=== PATIENT | male | born 1965 | race Caucasian/White ===

== ENCOUNTER 2020-12-31 09:31 | Inpatient (IN) | payer OTHER, MEDICARE, SELFPAY ==
[2020-12-31 10:06] VITALS: BP 153/104; PULSE 79; RESP 16; TEMP 36.7; O2SAT 99; BMI 27.2
[2020-12-31 11:32] LABS: MANUAL DIFF FLAG NO
[2020-12-31 11:34] LABS: Basophils Absolute Auto 0.1 X10*3/uL (0.0-0.2); Basophils Percent Auto 1.6 % (0-2); Eosinophils Absolute Auto 0.1 X10*3/uL (0.0-0.4); Eosinophils Percent Auto 2.5 % (0-4); Hematocrit 39.6 % (42-52); Hemoglobin 13.7 g/dl (14.0-18.0); Imm Gran Abs Auto 0.01 X10*3/uL (0.00-0.03); Imm Gran Pct Auto 0.2 % (0.0-0.4); Lymphocytes Absolute Auto 0.8 X10*3/uL (1.2-4.9); Lymphocytes Percent Auto 18.1 % (20-40); Mean Corpuscular HGB Conc 34.6 g/dl (31.0-36.0); Mean Corpuscular Hemoglobin 30.6 pg (27.0-33.0); Mean Corpuscular Volume 88.4 fL (80-98); Monocytes Absolute Auto 0.3 X10*3/uL (0.1-1.2); Neutrophils Absolute Auto 3.1 X10*3/uL (2.0-8.3); Neutrophils Percent Auto 71.6 % (45-73); Platelet Count 206 X10*3/uL (160-400); Red Blood Count 4.48 X10*6/uL (4.60-5.80); Red Cell Distribution Width 12.7 % (11.0-16.0); White Blood Count 4.4 X10*3/uL (4.8-10.8)
[2020-12-31 11:51] LABS: Ethanol < 10 mg/dL
[2020-12-31 11:54] LABS: Alanine Aminotransferase 22 U/L (0-40); Alkaline Phosphatase 95 U/L (39-117); Anion Gap 10 (12-20); Aspartate Amino Transferase 29 U/L (5-37); Bilirubin Total 0.9 mg/dL (0.0-1.0); Blood Urea Nitrogen 14 mg/dL (9-16); Calcium 8.6 mg/dL (8.4-10.2); Carbon Dioxide 25 mmol/L (22-29); Chloride 103 mmol/L (96-108); Creatinine Clr Calc Pharmacy 102.5; Estimated Glomerular Filt Rate > 60; Glucose Random 118 mg/dL (60-115); Potassium 3.4 mmol/L (3.3-5.1); Sodium 135 mmol/L (135-145); Total Protein 6.5 g/dL (6.5-8.0)
--- NOTE | 2020-12-31 12:31 | PC.NURSE ---
Pt is now speaking loudly to nobody. He claims that he is speaking to the world . He is not combative and claims he is not SI or HI at this time.
--- NOTE | 2020-12-31 12:52 | PC.NURSE ---
BRISEYDAN called and faxed
[2020-12-31 13:46] LABS: Amphetamine Screen Urine POSITIVE (Not Detect); Barbiturates, Urine Not Detected (Not Detect); Benzodiazepines Screen Urine Not Detected (Not Detect); Cannabinoid Screen Urine POSITIVE (Not Detect); Cocaine Screen Urine Not Detected (Not Detect); Opiate Screen Urine Not Detected (Not Detect); Phencyclidine Screen Urine Not Detected (Not Detect)
[2020-12-31] MEDS: clonazePAM 1 MG TABLET PO (14:17)
--- NOTE | 2020-12-31 14:19 | PC.NURSE ---
pt getting a little agitated because he is not getting his clonazapam, states that he will be leaving. pt very hyperverbal
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
--- NOTE | 2020-12-31 15:55 | PC.NURSE ---
[facility] at the bedside for assessment
--- NOTE | 2020-12-31 18:12 | PC.NURSE ---
Pt calm and cooperative. He is in hospital attire. His belongings in the washing machine at this time. He is eating dinner and awaiting a bed in the POD. Med-rec is completed. Section-[address] Pt awaiting bed-search.
[2020-12-31 22:01] VITALS: BP 122/91; PULSE 81; RESP 16; TEMP 36.6; O2SAT 98
[2020-12-31 23:57] VITALS: BP 116/66; PULSE 82; RESP 16; TEMP 36.2; O2SAT 96
[2021-01-01] VITALS: RESP 18
[2021-01-01 02:00] VITALS: RESP 18
[2021-01-01 04:00] VITALS: BP 122/78; PULSE 64; RESP 18; TEMP 36.9; O2SAT 97
[2021-01-01] MEDS: Nicotine 21 MG PATCH.TD24 TRANSDERMA (07:05)
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
--- NOTE | 2021-01-01 07:23 | PC.NURSE ---
pt awake and remains hyper verbal and random thoughts. he has had breakfast and has asked about his medication
[2021-01-01 08:56] VITALS: BP 120/76; PULSE 73; RESP 18; TEMP 37; O2SAT 99
[2021-01-01] MEDS: Amphetamine Mixed Salts 10 MG TABLET 30 MG PO ×2 (09:12→12:08)
[2021-01-01] MEDS: Multivitamin TABLET 1 TAB PO (09:13)
[2021-01-01] MEDS: Ibuprofen 600 MG TABLET PO (09:13)
--- NOTE | 2021-01-01 09:16 | PC.NURSE ---
PT MEDICATED WITH AM MEDICATIONS. HE REMAINS HYPER VERBAL WITH RANDOM OUTBURST
--- NOTE | 2021-01-01 09:17 | PC.NURSE ---
PT REFUSING COVID SWAB AT THIS TIME.
--- NOTE | 2021-01-01 10:05 | PC.NURSE ---
PT RESTING QUIETLY
--- NOTE | 2021-01-01 13:16 | PC.NURSE ---
pt eating lunch. he continues to request to speak to n he refused covid testing x 4 attempts
--- NOTE | 2021-01-01 15:42 | PC.NURSE ---
pt to the pod to shower
--- NOTE | 2021-01-01 17:22 | PC.NURSE ---
N requested labs and nurses notes to be faxed to them. Information faxed as requested.
[2021-01-01 20:00] VITALS: RESP 20
[2021-01-01 21:23] VITALS: BP 155/98; PULSE 73; RESP 18; TEMP 36.9; O2SAT 98
--- NOTE | 2021-01-01 21:26 | PC.NURSE ---
PATIENT IMPULSIVE AND GOT UP AND RAN TO BATHROOM DESPITE BEING ASKED TO WAIT.
--- NOTE | 2021-01-01 23:31 | PC.NURSE ---
Report received. PT is sitting in bed; self dialoguing. Calm and cooperative. Inpatient bed search in progress
[2021-01-02] VITALS (7 sets, daily range): BP systolic 157–176; BP diastolic 107–112; PULSE 76–80; RESP 15–20; TEMP 36.7; O2SAT 98–100
[2021-01-02] MEDS: Amphetamine Mixed Salts 10 MG TABLET 30 MG PO ×2 (04:22→09:12)
--- NOTE | 2021-01-02 08:39 | PC.NURSE ---
pt alert and oriented x3, pt is pleasant this morning and comfortably resting in bed but refused to have his vital signs taken, will re-attempt to obtain vitals before morning med pass. pt does not appear to be delusional at this time, verbal responses appropriate. aware
[2021-01-02] MEDS: Multivitamin TABLET 1 TAB PO (09:11)
[2021-01-02] MEDS: Ibuprofen 600 MG TABLET PO (09:12)
--- NOTE | 2021-01-02 09:22 | PC.NURSE ---
pt adamantly refused to have covid test done. took his nicotine patch off himself this morning and requested another one but the order was discontinued, md notified of patients request. new nicotine patch ordered. pt stated that he wants to go home
[2021-01-02] MEDS: Nicotine 21 MG PATCH.TD24 TRANSDERMA (10:26)
--- NOTE | 2021-01-02 12:30 | PC.NURSE ---
pt refused lunch he states in observance of lent (liz thursday). fluids encouraged.
--- NOTE | 2021-01-02 14:10 | PC.NURSE ---
pt wrote a note to monse (sabrina) stating that he is refusing to speak to anyone at this time.
--- NOTE | 2021-01-02 16:14 | PC.NURSE ---
patient refused to have his vitals taken ,rn stepan aware.
[2021-01-03] VITALS (10 sets, daily range): BP systolic 143–162; BP diastolic 91–114; PULSE 76–126; RESP 16–20; TEMP 36.2–37.1; O2SAT 95–99
[2021-01-03 02:39] LABS: COVID-19 Test Negative (Negative)
[2021-01-03] MEDS: Amphetamine Mixed Salts 10 MG TABLET 30 MG PO ×2 (05:27→08:32)
[2021-01-03] MEDS: Nicotine 21 MG PATCH.TD24 TRANSDERMA (05:35)
--- NOTE | 2021-01-03 05:44 | ED_ITS ---
HPI - General Adult General Chief complaint: Psychiatric Symptoms Stated complaint: PTSD Time Seen by Provider: 12/31/20 10:24 Source: patient Mode of arrival: ambulatory Limitations: no limitations History of Present Illness HPI narrative: 55-year-old female who presents emergency department for evaluation of upper back pain x2 days. The patient does not report any injury. She states that the pain came on suddenly and got progressively worse. She points to her mid thoracic back when asked to localize the pain. The pain is a constant, stabbing sensation which is 8/10 at its worst. The pain is worse with movement and with breathing. She denies fever, chills, cough or shortness of breath. She denies dyspnea on exertion. She states that she has had some slight rhinorrhea. She has been taking Tylenol for the pain without relief of her discomfort. She denies numbness, weakness, loss of bowel or bladder control. Related Data Home Medications Medication Instructions Recorded Confirmed dextroamphetamine-amphetamine 1 tab PO BID@0500,0900 12/31/20 01/01/21 ibuprofen 600 mg PO Q6H PRN 12/31/20 01/01/21 multivitamin 1 tab PO DAILY 12/31/20 01/01/21 Allergies Allergy/AdvReac Type Severity Reaction Status Date / Time Pork/Porcine Containing Allergy Mild UNKNOWN Unverified 08/02/20 19:51 Products [PORK/PORCINE CONTAINING PRODUCTS] Review of Systems Review of Systems: Yes all other systems are reviewed and are negative Neurologic: Reports Abnormal speech present PMFSH Past Medical History Source: unable to obtain Medical History (Updated 12/31/20 @ 17:50 by Edouard Andrew NP) ADHD Arthritis Narcolepsy PTSD (post-traumatic stress disorder) Vertigo Social History Social History Alcohol intake: never Smoking Status: Current every day smoker Use of substances other than those prescribed or required for medical reasons: No Advance Directives: No Advance Directives Information Provided: No Physical Exam Vital Signs: Vital Signs: Last Vital Signs Temp 97.8 F 01/03/21 05:34 Pulse 126 H 01/03/21 05:34 Resp 17 01/03/21 05:34 BP 143/92 H 01/03/21 05:34 Pulse Ox 97 02/18/21 05:34 Body Mass Index 27.2 Const: General: cooperative and healthy appearing Orientation/consciousness: oriented to person and oriented to place Limitations: no limitations HENMT: Head: Yes normal to inspection, Yes normocephalic and Yes atraumatic Ears: external ears normal General nose exam: Normal external nose present Face and sinus: Yes normal facial exam Mouth: Normal oral and palatal mucosa present Throat: Yes posterior oropharynx normal Eyes: Periorbital: periorbital findings normal Eyelids: Yes eyelids normal Conjunctivae: conjunctivae normal Sclerae: sclerae normal Corneas: corneas normal Pupils: Equal, round and reactive pupils present Direct Ophthalmoscopy: normal light reflex Neck: Neck: Yes full ROM, Yes no lymphadenopathy, Yes no meningeal signs, Yes trachea midline and Yes supple Chest: Chest palpation & inspection: normal inspection of the chest and normal palpation of entire chest wall Resp: Effort & Inspection: normal respiratory effort and able to speak in complete sentences Auscultation: clear to auscultation bilaterally Cardio: Rate: regular rate Rhythm: regular rhythm Heart sounds: S1 normal heart sound present, S2 normal heart sound present and no murmurs GI: Inspection: Yes normal to inspection Palpation (GI): Soft to palpation, nontender, no guarding, not rigid and No hepatosplenomegaly present : General: Yes no CVA tenderness Back/Spine/Pelvis: Back: no CVA tenderness Cervical Spine: normal cervical lordosis Thoracic/Lumbar Spine: thoracic and lumbar spine normal to in spection, straight leg raise negative bilaterally and paraspinal muscle tenderness bilaterally in the mid thoracic Skin: Lesions: no lesions Rashes: no rashes Wounds: no wounds Neuro: General: oriented to person, oriented to place and no meningeal signs Cranial nerves: Yes CN's II-XII intact bilaterally and Yes Equal, round and reactive pupils present Cognition (Neuro): normal cognition Speech: Abnormal speech present Motor exam (neuro): 5/5 motor strength present throughout Extrem: General: Yes normal to inspection and Yes full ROM Psych: Appearance: well kempt Mental Status: mental status grossly normal Speech and movement: Normal speech and movement present Affect: normal affect Attitude: cooperative Thought process: Normal thought process present Thought content: Normal thought content present Course Course Course Narrative: 55-year-old female who presents emergency department for evaluation of mid thoracic back pain x2 days with no injury. The patient has had no concerning systemic symptoms. She did have tenderness with palpation of the paraspinal muscles in the midthoracic area with spasm of these muscles. Patient's presentation is consistent with musculoskeletal injury. She was treated with prednisone 60 mg orally and Flexeril 10 mg orally. She is to take prednisone 60 mg once a day for 5 days, Flexeril 10 mg 3 times a day as needed for pain and spasm and extra-strength Tylenol 2 tablets every 4-6 hours as needed for pain. She was given verbal and printed instructions and discharged home. Medical Decision Making Lab Data Result diagrams: 12/31/20 11:22 12/31/20 11:22 Labs: Lab Results 12/31/20 12/31/20 12/31/20 Range/Units 11:22 11: 11:22 WBC 4.4 L (4.8-10.8) X10*3/uL RBC 4.48 L (4.60-5.80) X10*6/uL Hgb 13.7 L (14.0-18.0) g/dl Hct 39.6 L (42-52) % MCV 88.4 (80-98) fL MCH 30.6 (27.0-33.0) pg MCHC 34.6 (31.0-36.0) g/dl RDW 12.7 (11.0-16.0) % Plt Count 206 (160-400) X10*3/uL MPV 8.0 L (9.4-12.4) fL Immature Gran % (Auto) 0.2 (0.0-0.4) % Neut % (Auto) 71.6 (45-73) % Lymph % (Auto) 18.1 L (20-40) % [place] % (Auto) 6.0 (2-11) % Eos % (Auto) 2.5 (0-4) % Baso % (Auto) 1.6 (0-2) % Lymph # (Auto) 0.8 L (1.2-4.9) X10*3/uL [place] # (Auto) 0.3 (0.1-1.2) X10*3/uL Eos # (Auto) 0.1 (0.0-0.4) X10*3/uL Baso # (Auto) 0.1 (0.0-0.2) X10*3/uL Abs Immat Gran (auto) 0.01 (0.00-0.03) X10*3/uL Absolute Neuts (auto) 3.1 (2.0-8.3) X10*3/uL Absolute Nucleated RBC 0.000 (0.0-0.012) X10*3/uL Nucleated RBC % (auto) 0.0 (0.0-0.2) /100WBC Sodium 135 (135-145) mmol/L Potassium 3.4 (3.3-5.1) mmol/L Chloride 103 (96-108) mmol/L Carbon Dioxide 25 (22-29) mmol/L Anion Gap 10 L (12-20) BUN 14 (9-16) mg/dL Creatinine 0.85 (0.5-1.4) mg/dL Estim Creat Clear Calc 102.5 Estimated GFR > 60 Random Glucose 118 H (60-115) mg/dL Calcium 8.6 (8.4-10.2) mg/dL Total Bilirubin 0.9 (0.0-1.0) mg/dL AST 29 (5-37) U/L ALT 22 (0-40) U/L Alkaline Phosphatase 95 (39-117) U/L Total Protein 6.5 (6.5-8.0) g/dL Albumin 4.0 (3.5-5.0) g/dL Urine Opiates Screen (Not Detect) Ur Barbiturates Screen (Not Detect) Ur Phencyclidine Scrn (Not Detect) Ur Amphetamines Screen (Not Detect) U Benzodiazepines Scrn (Not Detect) Urine Cocaine Screen (Not Detect) U Marijuana (THC) Screen (Not Detect) Ethyl Alcohol < 10 mg/dL COVID-19 ([facility]RE[facility]) (Negative) COVID-19 Clin Com 12/31/20 01/03/21 Range/Units 13:07 02:11 WBC (4.8-10.8) X10*3/uL RBC (4.60-5.80) X10*6/uL Hgb (14.0-18.0) g/dl Hct (42-52) % MCV (80-98) fL MCH (27.0-33.0) pg MCHC (31.0-36.0) g/dl RDW (11.0-16.0) % Plt Count (160-400) X10*3/uL MPV (9.4-12.4) fL Immature Gran % (Auto) (0.0-0.4) % Neut % (Auto) (45-73) % Lymph % (Auto) (20-40) % [place] % (Auto) (2-11) % Eos % (Auto) (0-4) % Baso % (Auto) (0-2) % Lymph # (Auto) (1.2-4.9) X10*3/uL [place] # (Auto) (0.1-1.2) X10*3/uL Eos # (Auto) (0.0-0.4) X10*3/uL Baso # (Auto) (0.0-0.2) X10*3/uL Abs Immat Gran (auto) (0.00-0.03) X10*3/uL Absolute Neuts (auto) (2.0-8.3) X10*3/uL Absolute Nucleated RBC (0.0-0.012) X10*3/uL Nucleated RBC % (auto) (0.0-0.2) /100WBC Sodium (135-145) mmol/L Potassium (3.3-5.1) mmol/L Chloride (96-108) mmol/L Carbon Dioxide (22-29) mmol/L Anion Gap (12-20) BUN (9-16) mg/dL Creatinine (0.5-1.4) mg/dL Estim Creat Clear Calc Estimated GFR Random Glucose (60-115) mg/dL Calcium (8.4-10.2) mg/dL Total Bilirubin (0.0-1.0) mg/dL AST (5-37) U/L ALT (0-40) U/L Alkaline Phosphatase (39-117) U/L Total Protein (6.5-8.0) g/dL Albumin (3.5-5.0) g/dL Urine Opiates Screen Not Detected (Not Detect) Ur Barbiturates Screen Not Detected (Not Detect) Ur Phencyclidine Scrn Not Detected (Not Detect) Ur Amphetamines Screen POSITIVE H (Not Detect) U Benzodiazepines Scrn Not Detected (Not Detect) Urine Cocaine Screen Not Detected (Not Detect) U Marijuana (THC) Screen POSITIVE H (Not Detect) Ethyl Alcohol mg/dL COVID-19 ([facility]ISREEN) Negative (Negative) COVID-19 Clin Com See Note Discharge Plan Discharge Clinical Impression: Acute post-traumatic stress disorder Prescriptions: No Action multivitamin Tablet 1 tab PO DAILY RF: 0 dextroamphetamine-amphetamine 30 mg tablet 1 tab PO BID@0500,0900 RF: 0 ibuprofen 600 mg Tablet 600 mg PO Q6H PRN (Reason: Inflammation) RF: 0
--- NOTE | 2021-01-03 07:12 | PC.NURSE ---
Report received from KARELY Cancino. Pt awake, affect even, no concerns reported, except that he does not want to be admitted to inpatient unit.
--- NOTE | 2021-01-03 08:26 | PC.NURSE ---
Reviewed current vital signs w/ A Dorota. Pt reports he is hypertensive due to chronic pain.
[2021-01-03] MEDS: Ibuprofen 600 MG TABLET PO ×2 (08:30→17:45)
[2021-01-03] MEDS: Multivitamin TABLET 1 TAB PO (08:30)
--- NOTE | 2021-01-03 10:28 | PC.NURSE ---
Pt reports good effect from Motrin given.
--- NOTE | 2021-01-03 10:35 | PC.NURSE ---
Pt's current vital signs and elevated BP reported to Cristo mathews
[2021-01-03] MEDS: amLODIPine Besylate 5 MG TABLET PO (11:03)
--- NOTE | 2021-01-03 12:11 | PC.NURSE ---
Pt awake, watching television in room, no concerns reported.
--- NOTE | 2021-01-03 14:08 | PC.NURSE ---
Pt awake, affect even- pt pleasant, interacting w/ staff appropriately.
--- NOTE | 2021-01-03 16:56 | PC.NURSE ---
Pt resting at this time. Informed that he has been accepted to [facility]- very pleased with news.
--- NOTE | 2021-01-03 17:19 | PC.NURSE ---
Report given to KARELY Vuong
--- NOTE | 2021-01-03 17:59 | PC.NURSE ---
Pt continues to be pleasant, requesting ibuprofen for chronic back pain.
--- NOTE | 2021-01-03 18:19 | PC.NURSE ---
[facility] in to transfer pt to [facility]. Pt cooperative w/ transfer, affect even, no concerns reported.
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
[2021-01-03] MEDS: clonazePAM 1 MG TABLET PO (22:41)
[2021-01-03] MEDS: Milk of Magnesia 30 ML ORAL.SUSP PO (22:42)
[2021-01-04] MEDS: Amphetamine Mixed Salts 10 MG TABLET 30 MG PO ×2 (04:35→09:18)
[2021-01-04 04:40] VITALS: BP 122/81; PULSE 83; RESP 16; TEMP 36.2; O2SAT 97
[2021-01-04 09:11] VITALS: BP 122/81
[2021-01-04] MEDS: amLODIPine Besylate 5 MG TABLET PO (09:11)
[2021-01-04] MEDS: Multivitamin TABLET 1 TAB PO (09:11)
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
[2021-01-04] MEDS: Nicotine 21 MG PATCH.TD24 TRANSDERMA (16:55)
[2021-01-04] MEDS: clonazePAM 1 MG TABLET PO ×2 (16:56→21:02)
[2021-01-04 18:00] VITALS: BP 145/99; PULSE 90; TEMP 36.8
[2021-01-04] MEDS: Milk of Magnesia 30 ML ORAL.SUSP PO (22:35)
[2021-01-05] MEDS: Amphetamine Mixed Salts 10 MG TABLET 30 MG PO ×2 (05:59→12:18)
[2021-01-05 06:30] VITALS: BP 158/94; PULSE 77; RESP 18; TEMP 36.6; O2SAT 100
[2021-01-05] MEDS: Ibuprofen 600 MG TABLET PO ×2 (08:36→16:14)
[2021-01-05] MEDS: Nicotine 21 MG PATCH.TD24 TRANSDERMA (09:33)
[2021-01-05] MEDS: clonazePAM 1 MG TABLET PO ×2 (09:35→16:42)
[2021-01-05] MEDS: Multivitamin TABLET 1 TAB PO (09:37)
[2021-01-05] MEDS: Milk of Magnesia 30 ML ORAL.SUSP PO (12:23)
--- NOTE | 2021-01-05 15:52 | HO.PSYCHPN ---
Subjective Subjective Date of Service: 01/05/21 Reason For Visit: Paranoid delusions Subjective Notes: Conditional Voluntary Interim History: Patient known to me from a previous admission. He was calm, well groomed and cooperative. He reminded me of the history that he had been evaluated extensively at [facility] for treatment with Adderall. During the last admission he was re-started on it aling wit klonopin (which he insists he will only use in a hospital). He re-compensated quicky and was DC. He accepted the concern about adderall but again insisted that he has been Rx Adderall for many years. We agreed to observe him on the adderall over the weekend. If there is a return of psychosis or paranoia then team will address the issue further. He is considering signing a 3 day notice. Medication Compliance: Yes Side effects from medications: No Attending Groups: Yes Review of Systems Acute medical concerns: No Medical Review of Systems: unchanged Mental Status Exam Mental Status Exam Patient Appearance: Well Grooomed Patient Orientation: Person, Place, Time and Situation Level of Consciousness: Awake Patient Behavior: Appropriate Mood Description: Calm Affect Description: Calm Patient Cognition Impaired: No Ability to Follow Directions: Excellent Speech Pattern: Clear Memory Description: Intact Hallucinations: None Delusions: Not Present Thought Process: Intact Thought Content: positive for Intact, negative for Suicidal Ideation and negative for Homicidal Ideation Judgement: Fair Diagnostics Vital Signs (24Hr): Vital Signs - 24 hr 01/04/21 18:00 01/05/21 06:30 Temperature 98.3 F 97.9 F Pulse Rate 90 77 Respiratory Rate 18 Blood Pressure 145/99 H 158/94 H Pulse Oximetry 100 Body Mass Index 27.2 Labs Results: 12/31/20 11:22 12/31/20 11:22 Medications Medications Current Medications Generic Name Dose Route Start Last Admin Trade Name Freq PRN Reason Stop Dose Admin Acetaminophen 650 mg 01/03/21 17:30 Acetaminophen 325 Mg Tablet PO Q6H PRN Headache/Pain Mild Scale (1-3) Al Hydroxide/Mg Hydroxide 30 ml 01/03/21 17:30 Magnesium Hydrox/Alum Hydrox 30 Ml Oral.Susp PO Q6H PRN Heartburn/Nausea Amlodipine Besylate 5 mg 01/03/21 11:00 01/05/21 09:36 Amlodipine Besylate 5 Mg Tablet PO Not Given DAILY [facility] Protocol Amphetamine/Dextroamphetamine 30 mg 01/06/21 05:00 Amphetamine Mixed Salts 10 Mg Tablet PO DAILY@0500,0900 [facility] Benztropine Mesylate 1 mg 01/04/21 16:59 Benztropine Mesylate 1 Mg Tablet PO BID PRN eps Clonazepam 1 mg 01/04/21 16:55 01/05/21 09:35 Clonazepam 1 Mg Tablet PO 1 mg BID [facility]KE Administration Ibuprofen 600 mg 01/01/21 09:02 01/05/21 08:36 Ibuprofen 600 Mg Tablet PO 600 mg Q6H PRN Administration Inflammation Magnesium Hydroxide 30 ml 01/03/21 17:30 01/05/21 12:23 Milk Of Magnesia 30 Ml Oral.Susp PO 30 ml DAILY PRN Administration Constipation Multivitamins/Vitamin C 1 tab 01/01/21 09:15 01/05/21 09:37 Multivitamin Tablet PO 1 tab DAILY [facility] Administration Nicotine 21 mg 01/04/21 16:50 01/05/21 09:33 Nicotine 21 Mg Patch.Td24 TRANSDERMA 21 mg DAILY [facility] Administration Nicotine Polacrilex 2 mg 01/04/21 16:50 Nicotine Polacrilex 2 Mg Gum BUCCAL Q2H PRN Nicotine Cravings Perphenazine 8 mg 01/04/21 21:00 01/05/21 09:37 Perphenazine 8 Mg Tablet PO Not Given BID [facility] Perphenazine 2 mg 01/04/21 16:56 Perphenazine 2 Mg Tablet PO Q6H PRN agitation Trazodone HCl 50 mg 01/04/21 16:58 Trazodone Hcl 50 Mg Tablet PO BEDTIME PRN sleep Allergies Allergies Allergy/AdvReac Type Severity Reaction Status Date / Time Pork/Porcine Containing Allergy Mild UNKNOWN Verified 01/03/21 05:51 Products [PORK/PORCINE CONTAINING PRODUCTS] Assessment & Plan Assessment & Plan (1) Acute post-traumatic stress disorder: Status: Acute Code(s): F43.11 - Post-traumatic stress disorder, acute Assessment and Plan: Resume adderall Observe Collect more collateral information from [facility] Greater than 50% of the session was spent on counseling and/or coordination of care Patient educated on: diagnosis and medication risk/benefits Informed Consent: understands Reason for contiued inpatient stay Substantial Risk for: rapid decompensation
[2021-01-05 18:00] VITALS: BP 170/114; PULSE 84; TEMP 36.9
[2021-01-06 01:45] VITALS: BP 142/86; PULSE 83; RESP 18; O2SAT 99
[2021-01-06 05:15] VITALS: BP 124/77; PULSE 88; RESP 18; TEMP 36.6; O2SAT 99
[2021-01-06] MEDS: Amphetamine Mixed Salts 10 MG TABLET 30 MG PO ×2 (05:18→08:23)
[2021-01-06] MEDS: Ibuprofen 600 MG TABLET PO ×3 (05:18→20:38)
[2021-01-06] MEDS: Acetaminophen 325 MG TABLET 650 MG PO ×2 (06:32→15:55)
[2021-01-06 08:22] VITALS: BP 124/77; PULSE 88
[2021-01-06] MEDS: clonazePAM 1 MG TABLET PO ×3 (08:22→20:39)
[2021-01-06] MEDS: amLODIPine Besylate 5 MG TABLET PO (08:22)
[2021-01-06] MEDS: Perphenazine 8 MG TABLET PO (08:22)
[2021-01-06] MEDS: Multivitamin TABLET 1 TAB PO (08:22)
[2021-01-06] MEDS: Nicotine 21 MG PATCH.TD24 TRANSDERMA (09:18)
--- NOTE | 2021-01-06 14:40 | PC.NURSE ---
pt states he is refusing ekg at the time thursday
--- NOTE | 2021-01-06 15:39 | HO.PSYCHPN ---
Subjective Subjective Date of Service: 01/06/21 Reason For Visit: Paranoid delusions Subjective Notes: Conditional Voluntary Interim History: Patient known to me from a previous admission. He was calm, well groomed and cooperative. Since being on Adderall there has been no psychosis and no behavioral dyscontrol. Medication Compliance: Yes Side effects from medications: No Attending Groups: No Review of Systems Acute medical concerns: No Medical Review of Systems: unchanged Review of Systems Review of Systems Constitutional: No Weight loss, No Fever, No Chills, No Night Sweats, No Fatigue, No Malaise ENT/Mouth: No Hearing loss, No Ear Pain, No Nasal Congestion, No Sinus Pain, No Hoarseness, No sore throat, No Rhinorrhea, No Swallowing Difficulty Eyes: No Eye Pain, No Swelling, No Redness, No Foreign Body, No Discharge, No Vision Changes Cardiovascular: No Chest Pain, No SOB, No Dyspnea on Exertion, No Orthopnea, No Edema, No Palpitations Respiratory: No Cough, No Sputum, No Wheezing, No Dyspnea Gastrointestinal: No Nausea, No Vomiting, No Diarrhea, No Constipation, No abdominal Pain, No Hematochezia, No Melena Genitourinary: No Dysuria, No Urinary Frequency, No Hematuria, No Urgency, No Flank Pain, No Urinary Flow Changes, No Hesitancy Musculoskeletal: No joint pain, No Myalgias, No Joint Swelling Skin: No Skin Lesions, No rash Neuro: No Weakness, No Numbness, No Paresthesias, No Loss of Consciousness, No Dizziness, No Headache Psych: As noted per HPI, No SI/HI/AH/VH Heme/Lymph: No Bruising, No Bleeding,No Lymphadenopathy Endocrine: No Polyuria, No Polydipsia, No Temperature Intolerance Yes all other systems are reviewed and are negative Reports Abnormal speech present Mental Status Exam Mental Status Exam Patient Appearance: Well Grooomed Patient Orientation: Person, Place, Time and Situation Level of Consciousness: Awake Patient Behavior: Appropriate Mood Description: Calm Affect Description: Calm Patient Cognition Impaired: No Ability to Follow Directions: Excellent Speech Pattern: Clear Memory Description: Intact Thought Content: negative for Suicidal Ideation and negative for Homicidal Ideation Diagnostics Vital Signs (24Hr): Vital Signs - 24 hr 01/05/21 18:00 01/06/21 01:45 01/06/21 05:15 Temperature 98.4 F 97.9 F Pulse Rate 84 83 88 Respiratory Rate 18 18 Blood Pressure 170/114 H 142/86 H 124/77 Pulse Oximetry 99 99 01/06/21 08:22 Temperature Pulse Rate 88 Respiratory Rate Blood Pressure 124/77 Pulse Oximetry Body Mass Index 27.2 Labs Results: 12/31/20 11:22 12/31/20 11:22 Medications Medications Current Medications Generic Name Dose Route Start Last Admin Trade Name Freq PRN Reason Stop Dose Admin Acetaminophen 650 mg 01/03/21 17:30 01/06/21 06:32 Acetaminophen 325 Mg Tablet PO 650 mg Q6H PRN Administration Headache/Pain Mild Scale (1-3) Al Hydroxide/Mg Hydroxide 30 ml 01/03/21 17:30 Magnesium Hydrox/Alum Hydrox 30 Ml Oral.Susp PO Q6H PRN Heartburn/Nausea Amlodipine Besylate 5 mg 01/03/21 11:00 01/06/21 08:22 Amlodipine Besylate 5 Mg Tablet PO 5 mg DAILY [facility] Administration Protocol Amphetamine/Dextroamphetamine 30 mg 01/06/21 05:00 01/06/21 08:23 Amphetamine Mixed Salts 10 Mg Tablet PO 30 mg DAILY@0500,0900 [facility] Administration Benztropine Mesylate 1 mg 01/04/21 16:59 Benztropine Mesylate 1 Mg Tablet PO BID PRN eps Clonazepam 1 mg 01/06/21 10:35 Clonazepam 1 Mg Tablet PO BID PRN Anxiety Ibuprofen 600 mg 01/01/21 09:02 01/06/21 12:52 Ibuprofen 600 Mg Tablet PO 600 mg Q6H PRN Administration Inflammation Magnesium Hydroxide 30 ml 01/03/21 17:30 01/05/21 12:23 Milk Of Magnesia 30 Ml Oral.Susp PO 30 ml DAILY PRN Administration Constipation Multivitamins/Vitamin C 1 tab 01/01/21 09:15 01/06/21 08:22 Multivitamin Tablet PO 1 tab DAILY [facility] Administration Nicotine 21 mg 01/04/21 16:50 01/06/21 09:18 Nicotine 21 Mg Patch.Td24 TRANSDERMA 21 mg DAILY [facility] Administration Nicotine Polacrilex 2 mg 01/04/21 16:50 Nicotine Polacrilex 2 Mg Gum BUCCAL Q2H PRN Nicotine Cravings Trazodone HCl 50 mg 01/04/21 16:58 Trazodone Hcl 50 Mg Tablet PO BEDTIME PRN sleep Allergies Allergies Allergy/AdvReac Type Severity Reaction Status Date / Time Pork/Porcine Containing Allergy Mild UNKNOWN Verified 01/03/21 05:51 Products [PORK/PORCINE CONTAINING PRODUCTS] Assessment & Plan Assessment & Plan (1) Acute post-traumatic stress disorder: Status: Acute Code(s): F43.11 - Post-traumatic stress disorder, acute Assessment and Plan: Resume adderall Observe [facility] Greater than 50% of the session was spent on counseling and/or coordination of care Patient educated on: diagnosis and medication risk/benefits Informed Consent: understands Reason for contiued inpatient stay Substantial Risk for: rapid decompensation
[2021-01-06] MEDS: Milk of Magnesia 30 ML ORAL.SUSP PO (15:55)
[2021-01-06 17:36] VITALS: BP 165/106; PULSE 80; TEMP 36.2
--- NOTE | 2021-01-06 19:00 | PC.NURSE ---
Addendum entered by Winsome Feliciano RN 01/06/21 19:12: Correction:Clonidine is 0.05 po q 4 hours prn HTN NOT 0.5 mg. Original Note: Patient's blood pressure was 165/106 with a pulse of 80. Dr. José Hameed notified. Patient also complained of constipation x [address] Tyson aware. Telephone orders obtained for Conidine 0.5 po Q4 hours prn HTN. Hold for systolic <90. Also Senokot 17.2 mg po bid scheduled.
[2021-01-06 19:15] VITALS: BP 143/97; PULSE 90
[2021-01-06] MEDS: cloNIDine HCL 0.1 MG TABLET 0.05 MG PO (19:15)
[2021-01-07 05:35] VITALS: BP 126/95; PULSE 77; RESP 18; TEMP 36.6; O2SAT 99
[2021-01-07] MEDS: Amphetamine Mixed Salts 10 MG TABLET 30 MG PO ×2 (05:42→08:28)
[2021-01-07] MEDS: Nicotine 21 MG PATCH.TD24 TRANSDERMA (08:25)
[2021-01-07 08:26] VITALS: BP 126/95; PULSE 77
[2021-01-07] MEDS: amLODIPine Besylate 5 MG TABLET PO (08:26)
[2021-01-07] MEDS: Sennosides 8.6 MG TABLET 17.2 MG PO ×2 (08:27→20:22)
[2021-01-07] MEDS: Multivitamin TABLET 1 TAB PO (08:29)
[2021-01-07] MEDS: Ibuprofen 600 MG TABLET PO ×2 (12:01→20:22)
[2021-01-07] MEDS: clonazePAM 1 MG TABLET PO ×2 (12:26→16:43)
[2021-01-07 15:10] VITALS: BP 128/78; PULSE 88
[2021-01-07] MEDS: cloNIDine HCL 0.1 MG TABLET 0.05 MG PO ×2 (15:10→20:18)
--- NOTE | 2021-01-07 17:06 | P.PNPSI_ITS ---
Subjective Subjective Date of Service: 01/07/21 Reason For Visit: Paranoid delusions Interim History: Pt appears calmer today. 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 Pt is very polite. He reports that he has been told that he has schizophrenia but he does no think that this is the case. Pt continued to decline antipsychotic medications. His has been calmer, although pacing keys, praying while pacing and talking at times with someone who is not there. He has not been aggressive towards self or others. No hx of violence towards self or others, despite his psychosis. Calls made to his adult children but unable to leave as it is full. [facility] with hx of persecutory delusions Review of Systems Review of Systems Constitutional: No Weight loss, No Fever, No Chills, No Night Sweats, No Fatigu e, No Malaise ENT/Mouth: No Hearing loss, No Ear Pain, No Nasal Congestion, No Sinus Pain, No Hoarseness, No sore throat, No Rhinorrhea, No Swallowing Difficulty Eyes: No Eye Pain, No Swelling, No Redness, No Foreign Body, No Discharge, No Vision Changes Cardiovascular: No Chest Pain, No SOB, No Dyspnea on Exertion, No Orthopnea, No Edema, No Palpitations Respiratory: No Cough, No Sputum, No Wheezing, No Dyspnea Gastrointestinal: No Nausea, No Vomiting, No Diarrhea, No Constipation, No abdominal Pain, No Hematochezia, No Melena Genitourinary: No Dysuria, No Urinary Frequency, No Hematuria, No Urgency, No Flank Pain, No Urinary Flow Changes, No Hesitancy Musculoskeletal: No joint pain, No Myalgias, No Joint Swelling Skin: No Skin Lesions, No rash Neuro: No Weakness, No Numbness, No Paresthesias, No Loss of Consciousness, No Dizziness, No Headache Psych: As noted per HPI, No SI/HI/AH/VH Heme/Lymph: No Bruising, No Bleeding,No Lymphadenopathy Endocrine: No Polyuria, No Polydipsia, No Temperature Intolerance Yes all other systems are reviewed and are negative Reports Abnormal speech present Mental Status Exam Mental Status Exam Narrative: Appearance: casually groomed, fair hygiene, restless Behavior: increasingly guarded, suspicious and agitated Psychomotor: significant agitation noted Speech: unclear at times due to pressured speech, hyper verbal, monotone, loud at times, spontaneous. TP:derailment noted, circumstantial TC: persecutory delusions, ideas of reference AH/VH: pt appears internally preoccupied Mood: tired Affect: paranoid, guarded, agitated Insight/judgment: impaired x 2. Memory/cog: alert, oriented to place, not to situation Patient Appearance: Well Grooomed Patient Orientation: Person, Place, Time and Situation Level of Consciousness: Awake Patient Behavior: Appropriate Mood Description: Calm Affect Description: Calm Patient Cognition Impaired: No Ability to Follow Directions: Excellent Speech Pattern: Clear Memory Description: Intact Diagnostics Vital Signs (24Hr): Vital Signs - 24 hr 01/06/21 17:36 01/06/21 19:15 01/07/21 05:35 Temperature 97.2 F 97.9 F Pulse Rate 80 90 77 Respiratory Rate 18 Blood Pressure 165/106 H 143/97 H 126/95 H Pulse Oximetry 99 01/07/21 08:26 01/07/21 15:10 Temperature Pulse Rate 77 88 Respiratory Rate Blood Pressure 126/95 H 128/78 Pulse Oximetry Body Mass Index 27.2 Labs Results: 12/31/20 11:22 12/31/20 11:22 Medications Medications Current Medications Generic Name Dose Route Start Last Admin Trade Name Rahatq PRN Reason Stop Dose Admin Acetaminophen 650 mg 01/03/21 17:30 01/06/21 15:55 Acetaminophen 325 Mg Tablet PO 650 mg Q6H PRN Administration Headache/Pain Mild Scale (1-3) Al Hydroxide/Mg Hydroxide 30 ml 01/03/21 17:30 Magnesium Hydrox/Alum Hydrox 30 Ml Oral.Susp PO Q6H PRN Heartburn/Nausea Amlodipine Besylate 5 mg 01/03/21 11:00 01/07/21 08:26 Amlodipine Besylate 5 Mg Tablet PO 5 mg DAILY MIKE Administration Protocol Amphetamine/Dextroamphetamine 30 mg 01/06/21 05:00 01/07/21 08:28 Amphetamine Mixed Salts 10 Mg Tablet PO 30 mg DAILY@0500,0900 MIKE Administration Benztropine Mesylate 1 mg 01/04/21 16:59 Benztropine Mesylate 1 Mg Tablet PO BID PRN eps Clonazepam 1 mg 01/06/21 10:35 01/07/21 16:43 Clonazepam 1 Mg Tablet PO 1 mg BID PRN Administration Anxiety Clonidine HCl 0.05 mg 01/06/21 18:48 01/07/21 15:10 Clonidine Hcl 0.1 Mg Tablet PO 0.05 mg Q4H PRN Administration HTN Protocol Ibuprofen 600 mg 01/01/21 09:02 01/07/21 12:01 Ibuprofen 600 Mg Tablet PO 600 mg Q6H PRN Administration Inflammation Magnesium Hydroxide 30 ml 01/03/21 17:30 01/06/21 15:55 Milk Of Magnesia 30 Ml Oral.Susp PO 30 ml DAILY PRN Administration Constipation Multivitamins/Vitamin C 1 tab 01/01/21 09:15 01/07/21 08:29 Multivitamin Tablet PO 1 tab DAILY MIKE Administration Nicotine 21 mg 01/04/21 16:50 01/07/21 08:25 Nicotine 21 Mg Patch.Td24 TRANSDERMA 21 mg DAILY MIKE Administration Nicotine Polacrilex 2 mg 01/04/21 16:50 Nicotine Polacrilex 2 Mg Gum BUCCAL Q2H PRN Nicotine Cravings Senna 17.2 mg 01/06/21 21:00 01/07/21 08:27 Sennosides 8.6 Mg Tablet PO 17.2 mg BID MIKE Administration Trazodone HCl 50 mg 01/04/21 16:58 Trazodone Hcl 50 Mg Tablet PO BEDTIME PRN sleep Allergies Allergies Allergy/AdvReac Type Severity Reaction Status Date / Time Pork/Porcine Containing Allergy Mild UNKNOWN Verified 01/03/21 05:51 Products [PORK/PORCINE CONTAINING PRODUCTS] Assessment & Plan Assessment & Plan (1) Paranoid schizophrenia: Status: Acute Code(s): F20.0 - Paranoid schizophrenia Assessment and Plan: Mr. Quigley continues to present with persecutory delusions, AH, and declining antipsychotics but in good behavioral control. No indication of i mminent risks to self or others despite long history of delusional thinking/AH. Greater than 50% of the session was spent on counseling and/or coordination of care Reason for contiued inpatient stay Substantial Risk for: inability to function
[2021-01-07 17:34] VITALS: BP 159/92; PULSE 93; TEMP 37
[2021-01-07] MEDS: Milk of Magnesia 30 ML ORAL.SUSP PO (19:27)
[2021-01-07 20:18] VITALS: BP 144/94; PULSE 91
[2021-01-07] MEDS: Acetaminophen 325 MG TABLET 650 MG PO (22:42)
[2021-01-08] MEDS: clonazePAM 1 MG TABLET PO ×2 (00:16→12:15)
[2021-01-08] MEDS: Amphetamine Mixed Salts 10 MG TABLET 30 MG PO ×2 (05:13→09:05)
[2021-01-08 05:15] VITALS: BP 154/100; PULSE 79; RESP 20; TEMP 36.6; O2SAT 100
[2021-01-08] MEDS: Sennosides 8.6 MG TABLET 17.2 MG PO ×2 (08:59→20:11)
[2021-01-08 09:00] VITALS: BP 154/100; PULSE 79
[2021-01-08] MEDS: Multivitamin TABLET 1 TAB PO (09:00)
[2021-01-08] MEDS: amLODIPine Besylate 5 MG TABLET PO (09:00)
[2021-01-08] MEDS: Nicotine 21 MG PATCH.TD24 TRANSDERMA (09:01)
[2021-01-08] MEDS: Acetaminophen 325 MG TABLET 650 MG PO ×2 (12:14→22:05)
[2021-01-08] MEDS: Ibuprofen 600 MG TABLET PO ×2 (12:16→22:02)
[2021-01-08 16:13] VITALS: BP 174/101; PULSE 88
[2021-01-08] MEDS: cloNIDine HCL 0.1 MG TABLET 0.05 MG PO ×2 (16:13→22:05)
[2021-01-08 17:00] VITALS: BP 122/88; PULSE 84
--- NOTE | 2021-01-08 17:18 | P.PNPSI_ITS ---
Subjective Subjective Date of Service: 01/08/21 Reason For Visit: Paranoid delusions Interim History: Pt has been persevering on this health science writer and SW to confirm with and confront his mother and sister about veracity of his brother in law killing a man with no face, no tongue and having a son who was born with no heart. He denied SI/HI. he continues to decline antipsychotics and has no insight into delusional thinking. However, this health science writer spoke with his sister who reports that pt has had combination of paranoid delusions, at times AH for more than 30 years. Sister reports he has been homeless for several years, at some point lived with his mother but he was evicted due to confronting neighbors secondary to his paranoid delusions. However, apparently, pt has been able to survive tr aveling from state to state, at times sleeping on the streets as he does not trust being around people in shelters. No recent history of aggression towards self or others. Sister reports that about one year he stopped taking antipsychotic, which he apparently took for about one year in [place] at [facility]. Sister reports that pt was lethargic and gained significant amount of weight- she is not sure which antipsychotic medications was it but in records it says that he was on olanzapine. This health science writer explained to sister that although he has symptoms of paranoid delusions, no evidence to suggest high likelihood of imminent risks to self or others. 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 Sister denies hx of narcolepsy as far as she is aware and thinks that with adderall delusions and psychosis are much worse. Review of Systems Review of Systems Constitutional: No Weight loss, No Fever, No Chills, No Night Sweats, No Fatigue, No Malaise ENT/Mouth: No Hearing loss, No Ear Pain, No Nasal Congestion, No Sinus Pain, No Hoarseness, No sore throat, No Rhinorrhea, No Swallowing Difficulty Eyes: No Eye Pain, No Swelling, No Redness, No Foreign Body, No Discharge, No Vision Changes Cardiovascular: No Chest Pain, No SOB, No Dyspnea on Exertion, No Orthopnea, No Edema, No Palpitations Respiratory: No Cough, No Sputum, No Wheezing, No Dyspnea Gastrointestinal: No Nausea, No Vomiting, No Diarrhea, No Constipation, No abdominal Pain, No Hematochezia, No Melena Genitourinary: No Dysuria, No Urinary Frequency, No Hematuria, No Urgency, No Flank Pain, No Urinary Flow Changes, No Hesitancy Musculoskeletal: No joint pain, No Myalgias, No Joint Swelling Skin: No Skin Lesions, No rash Neuro: No Weakness, No Numbness, No Paresthesias, No Loss of Consciousness, No Dizziness, No Headache Psych: As noted per HPI, No SI/HI/AH/VH Heme/Lymph: No Bruising, No Bleeding,No Lymphadenopathy Endocrine: No Polyuria, No Polydipsia, No Temperature Intolerance Yes all other systems are reviewed and are negative Reports Abnormal speech present Mental Status Exam Mental Status Exam Narrative: Appearance: casually groomed, fair hygiene, restless Behavior: increasingly guarded, suspicious and agitated Psychomotor: significant agitation noted Speech: unclear at times due to pressured speech, hyper verbal, monotone, loud at times, spontaneous. TP:derailment noted, circumstantial TC: persecutory delusions, ideas of reference AH/VH: pt appears internally preoccupied Mood: tired Affect: paranoid, guarded, agitated Insight/judgment: impaired x 2. Memory/cog: alert, oriented to place, not to situation Patient Appearance: Well Grooomed Patient Orientation: Person, Place, Time and Situation Level of Consciousness: Awake Patient Behavior: Appropriate Mood Description: Calm Affect Description: Calm Patient Cognition Impaired: No Ability to Follow Directions: Excellent Speech Pattern: Clear Memory Description: Intact Diagnostics Vital Signs (24Hr): Vital Signs - 24 hr 01/07/21 17:34 01/07/21 20:18 01/08/21 05:15 Temperature 98.6 F 97.9 F Pulse Rate 93 91 79 Respiratory Rate 20 Blood Pressure 159/92 H 144/94 H 154/100 H Pulse Oximetry 100 01/08/21 09:00 01/08/21 16:13 01/08/21 17:00 Temperature Pulse Rate 79 88 84 Respiratory Rate Blood Pressure 154/100 H 174/101 H 122/88 Pulse Oximetry Body Mass Index 27.2 Labs Results: 12/31/20 11:22 12/31/20 11:22 Medications Medications Current Medications Generic Name Dose Route Start Last Admin Trade Name Freq PRN Reason Stop Dose Admin Acetaminophen 650 mg 01/03/21 17:30 01/08/21 12:14 Acetaminophen 325 Mg Tablet PO 650 mg Q6H PRN Administration Headache/Pain Mild Scale (1-3) Al Hydroxide/Mg Hydroxide 30 ml 01/03/21 17:30 Magnesium Hydrox/Alum Hydrox 30 Ml Oral.Susp PO Q6H PRN Heartburn/Nausea Amlodipine Besylate 5 mg 01/03/21 11:00 01/08/21 09:00 Amlodipine Besylate 5 Mg Tablet PO 5 mg DAILY MIKE Administration Protocol Amphetamine/Dextroamphetamine 30 mg 01/06/21 05:00 01/08/21 09:05 Amphetamine Mixed Salts 10 Mg Tablet PO 30 mg DAILY@0500,0900 MIKE Administration Benztropine Mesylate 1 mg 01/04/21 16:59 Benztropine Mesylate 1 Mg Tablet PO BID PRN eps Clonazepam 1 mg 01/06/21 10:35 01/08/21 12:15 Clonazepam 1 Mg Tablet PO 1 mg BID PRN Administration Anxiety Clonidine HCl 0.05 mg 01/06/21 18:48 01/08/21 16:13 Clonidine Hcl 0.1 Mg Tablet PO 0.05 mg Q4H PRN Administration HTN Protocol Ibuprofen 600 mg 01/01/21 09:02 01/08/21 12:16 Ibuprofen 600 Mg Tablet PO 600 mg Q6H PRN Administration Inflammation Magnesium Hydroxide 30 ml 01/03/21 17:30 01/07/21 19:27 Milk Of Magnesia 30 Ml Oral.Susp PO 30 ml DAILY PRN Administration Constipation Multivitamins/Vitamin C 1 tab 01/01/21 09:15 01/08/21 09:00 Multivitamin Tablet PO 1 tab DAILY MIKE Administration Nicotine 21 mg 01/04/21 16:50 01/08/21 09:01 Nicotine 21 Mg Patch.Td24 TRANSDERMA 21 mg DAILY MIKE Administration Nicotine Polacrilex 2 mg 01/04/21 16:50 Nicotine Polacrilex 2 Mg Gum BUCCAL Q2H PRN Nicotine Cravings Senna 17.2 mg 01/06/21 21:00 01/08/21 08:59 Sennosides 8.6 Mg Tablet PO 17.2 mg BID MIKE Administration Trazodone HCl 50 mg 01/04/21 16:58 Trazodone Hcl 50 Mg Tablet PO BEDTIME PRN sleep Allergies Allergies Allergy/AdvReac Type Severity Reaction Status Date / Time Pork/Porcine Containing Allergy Mild UNKNOWN Verified 01/03/21 05:51 Products [PORK/PORCINE CONTAINING PRODUCTS] Assessment & Plan Assessment & Plan (1) Paranoid schizophrenia: Status: Acute Code(s): F20.0 - Paranoid schizophrenia Assessment and Plan: Mr. Quigley continues to present with persecutory delusions, AH, and declining antipsychotics but in good behavioral control. No indication of imminent risks to self or others despite long history of delusional thinking/AH. Greater than 50% of the session was spent on counseling and/or coordination of care Reason for contiued inpatient stay Substantial Risk for: med/psych decompensation
[2021-01-08 18:00] VITALS: BP 174/101; PULSE 88; TEMP 37.2
[2021-01-08 22:05] VITALS: BP 165/93; PULSE 84
[2021-01-09] MEDS: Amphetamine Mixed Salts 10 MG TABLET 30 MG PO ×2 (04:29→08:45)
[2021-01-09 06:25] VITALS: BP 153/95; PULSE 81; RESP 18; TEMP 36.4; O2SAT 98
[2021-01-09 08:40] VITALS: BP 153/95; PULSE 80
[2021-01-09] MEDS: Sennosides 8.6 MG TABLET 17.2 MG PO (08:40)
[2021-01-09] MEDS: Multivitamin TABLET 1 TAB PO (08:40)
[2021-01-09] MEDS: amLODIPine Besylate 5 MG TABLET PO (08:40)
[2021-01-09] MEDS: Nicotine 21 MG PATCH.TD24 TRANSDERMA (08:46)
--- NOTE | 2021-01-09 09:31 | PM.PSYDC ---
DS: Providers Provider Date of Service: 01/09/21 Date of admission: 01/03/21 17:29 Date of discharge: 01/09/21 Primary care physician: Nonstaff Physician Attending physician on discharge: Cristiana Reyes DS: Diagnosis Discharge Diagnosis (1) Paranoid schizophrenia: Status: Acute DS: Medications Discharge Medications Home Medications: Home Medications Medication Instructions Recorded Confirmed dextroamphetamine-amphetamine 1 tab PO BID@0500,0900 12/31/20 01/01/21 Previous Rx's Medication Instructions Recorded amlodipine 5 mg PO DAILY #30 tab 01/09/21 ibuprofen 600 mg PO Q6H PRN #30 tab 01/09/21 nicotine 21 mg TRANSDERMAL DAILY #28 ea 01/09/21 Discharge Plan Discharge Patient Disposition: Home, Self-Care Referrals: [facility] [place] [Other] (Walk in if needed) PSYCHIATRY [Other] (NALLELY WILL FOLLOW UO WITH [facility]) Discharge Medications: New amlodipine 5 mg Tablet 5 mg PO DAILY Qty: 30 RF: 0 nicotine 21 mg/24 hr Patch 24 Hour 21 mg transdermal DAILY Qty: 28 RF: 0 ibuprofen 600 mg Tablet 600 mg PO Q6H PRN (Reason: Inflammation) Qty: 30 RF: 0 Discontinued multivitamin Tablet 1 tab PO DAILY RF: 0 dextroamphetamine-amphetamine 30 mg tablet 1 tab PO BID@0500,0900 RF: 0 ibuprofen 600 mg Tablet 600 mg PO Q6H PRN (Reason: Inflammation) RF: 0 Discharge Orders: Discharge Order (Routine); Ordered 01/09/21 Ordered By: Cristiana Reyes Diet: regular diet Activity on Discharge: As tolerated Stand Alone Forms: Patient Portal Discharge page, Community Support Care Plan Goals: 1. Follow up with referrals Health Concerns: 1. follow up with PCP Plan of Treatment: 1. Follow up with referrals Discharge Date/Time: 01/09/21 11:30 Mental Status Exam Mental Status Exam Narrative: Appearance: casually groomed, fair hygiene, in NAD Behavior: mostly in good behavioral control, cooperative Psychomotor: some mild restlessness Speech: unclear at times due to pressured speech, hyper verbal, monotone, loud at times, spontaneous. TP:tangential TC: persecutory delusions, ideas of reference AH/VH: pt appears internally preoccupied Mood: good Affect: constricted but appropriate Insight/judgment: fair x 2. Memory/cog: alert, oriented x 3. Patient Appearance: Well Grooomed Patient Orientation: Person, Place, Time and Situation Level of Consciousness: Awake Patient Behavior: Appropriate Mood Description: Calm Affect Description: Calm Patient Cognition Impaired: No Ability to Follow Directions: Excellent Speech Pattern: Clear Memory Description: Intact Data Data Completed and Pending Completed studies during hospitalization [Text1]: 01/03/21 02:11 COVID-19 (NISREEN) Negative COVID-19 Clin Com See Note DS: Summary Hospital Course Hospital Course: Mr. Quigley is a 55 year-old male with hx of schizoaffective vs schizophrenia with multiple inpatient admission in different hospital across the country as pt has been moving around apparently prompted by complex system of paranoid delusions and tendency of non compliance with psychiatric treatment. Of note, since 06/2020, pt has had a total of 5 inpatient psychiatric admission. This admission, he was brought via EMS after he had presented to assisted/[facility] and appeared paranoid and agitated. In the ED. pt was observed talking to himself, agitated. He reported that he was talking to the world. 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 He also reported that I am the Alpha and I have the message. He denied suicidal or homicidal ideation but appeared gravely disable. His utox was positive for amphetamines which he is prescribed, apparently for narcolepsy. Although dx of narcolepsy was not verified through his terminal operator providers. On the unit, pt presented initially as polite but increasingly hyper verbal and pressured to the point that it was very difficult to interrupt him. Pt reports he has known now for about 3 years that his brother in law killed a man that he knew. He reports his brother in law told him while intoxicated with alcohol that he had murdered someone. Pt reports that the person who brother in law killed had no face and had a child who was born without a heart and that the [place] had claimed as a miracle baby. He asked this travel writer young lady, do your research, this is all true, it was on [facility]. 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 He reported that he was sent here and he had agreed only as a temporary respite but did not want any medication changes except for clonazepam and continuation of adderall. When this travel writer asked him about olanzapine, and whether he was taking this medications, pt became very agitated stating don't even go there, you will lose all credibility with me. He proceeded to report that he was not delusional. When asked if he had been told this in the past, pt reported that he had been forced to take medication in [place] and in [place] after he was taken to court. Through out his conversation, Mr. Quigley reported several themes of Latter-Day, being a Church and not lying about the information that he was provided to [facility]. He also reported several times that I wish this was a delusions, no one wants to be in this position, having to bare so much pain and witnessed so many horrible things. However, pt was becoming increasingly more paranoid towards this travel writer and meeting had to be interrupted abruptly as pt was clenching his fist, moderately punching the table. Past Psychiatric History: Inpatient: per previous records and collateral reports from [facility], he has had more than 40 admissions. Most recently, pt has had 5 inpatient admission in the [facility] since June 2020. 09/09/2020- [facility]; 08/30/2020-Yenn[facility]; 07/13/2020 [facility]; 07/03/2020-07/06/2020 [facility] Deg[facility];06/22/2020 [facility] OP: it is unclear how often he is actually seeing his providers at [facility]. He does receive a refill for Adderall which apparently is for narcolepsy. [facility]- Dr. Mckinney ([phone]); Aviation Electronics Technician Boo Salcedo ([phone]) Son Karri ([phone]); daughter Lisa ([phone]) Past medication trials: olanzapine HOSPITAL COURSE: Mr. Quigley initially presented as very agitated, specially if his delusions were challenged or any insinuation that he may benefit from antipsychotic medications. He was also very agitated when discussing that adderall is worsening his psychotic symptoms. He reported he was prescribed adderall because he has narcolepsy and ADHD. Narcolepsy diagnosis has not been confirmed from long terms providers at [facility] and family denies that he has this diagnosis. Currently, pt has been receiving adderall through [facility]- psychiatric services. We tried to discuss with pt that even if in fact he has narcolepsy, he may benefit from medications like modafinil, rather than amphetamines as it worses his psychiatric symptoms. Collateral information was gather from several sources including the [facility], his mother and his sister. [facility] [place] reports that pt with paranoid delusions, no none history of violence or aggression towards self or others. During recent [facility] admission last 06/2020 pt declined antipsychotics and was quickly discharged. His sister reports that pt has had combination of paranoid delusions, AH for more than 30 years, even prior to TBI he apparently had back in 2003. 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 Sister reports he moves to different states due to his paranoid/persecutory delusions. he has been homeless also for several years. Pt apparently was in [facility] about 1.5 years, where he had agreed to take antipsychotics- sister reports his thought content was more coherent and he was not as agitated when delusions challenged but apparently he did gain significant amount of weight and was lethargic at times. Sister and mother denied any hx of aggression towards self or others. Despite ongoing and persistent persecutory delusions, pt able to maintain himself fairly groomed, nourished. He does not take care of his medical conditions as consistently as he should such as better control of HTN, but no acute medical intervention is needed at this point. 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 During his time in the unit, pt was mostly polite with peers and staff. He was well groomed, eating and sleeping well. He was offered perphenazine but he declined. He only agreed to take Adderral but pt explained he would not be discharged on this medications as it can worsened his untreated psychotic symptoms. He declined prescription for clonazepam which he took in unit as needed. He declined to be referred to the [facility] or follow up appointments there and asked to be referred to another local mental health agency. However, when pt was here in the unit he was referred to [facility] but he never followed up. He did contiune to get prescriptions through the [facility], mostly adderall. He was given information to several mental health facilities and assisted. Pt declined being referred to a assisted as he reported not trusting the people who goes there not feeling safe. He insisted that he verified that his brother in law had in fact killed a man and became somewhat agitated when he told him his family had different understands of what had happened. Time spent discussing smoking cessation with patient: more than 10 minutes Status at Discharge Cognitive/behavioral status at discharge: Pt continues to present with persecutory delusions. However, he did not show any signs of aggression towards self or others. There was no additional information from collateral information to suggest that pt is at imminent risks of hurting self or others if he does not receive psychiatric treatment. Pt has been able to survive with adequate nutrition and accesses care when he feels he needs to. Therefore, decision was to discharge patient and proceed with petition to the court for involuntary treatment. Functional status at discharge: independent ambulation Overall status at discharge: other (unclear how well pt can get if he did in fact receive treatment. Pt stable and safe for discharge.) Time Spent with Patient Time attestation: Total time spent providing and/or coordinating discharge services: Time spent: Greater than 30 minutes
== END 2021-01-09 11:30 | disposition home or self-care (01) | DRG 885 ==
LOC: HO.ED 01-02 19:15 → HO.PM5 01-03 17:37
PROVIDERS: Nurse Practitioner Primary Care; Admitting Provider Psychiatry & Neurology Psychiatry; Emergency Provider Internal Medicine; Visit Provider Social Worker
DX: F20.0 Paranoid schizophrenia (principal); F43.11 Post-traumatic stress disorder, acute; Z20.822 Contact with and (suspected) exposure to COVID-19
CPT/HCPCS: 36415; 80053; 80307; 80320; 85025; 87635; 99285

== ENCOUNTER 2021-06-25 09:02 | Emergency (ER) | payer OTHER, SELFPAY ==
[2021-06-25 10:07] VITALS: BP 198/118; PULSE 100; RESP 18; TEMP 36; O2SAT 96; BMI 31.0
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
== END 2021-06-25 12:02 | disposition left against medical advice (07) ==
PROVIDERS: Emergency Provider Emergency Medicine Emergency Medical Services
DX: F20.0 Paranoid schizophrenia (principal); Z76.5 Malingerer [conscious simulation]
CPT/HCPCS: 99282

== ENCOUNTER 2024-07-06 17:20 | Emergency (ER) | payer OTHER, SELFPAY ==
[2024-07-06 17:35] VITALS: BP 117/80; PULSE 83; RESP 20; TEMP 36.6; O2SAT 98; BMI 23.1
--- NOTE | 2024-07-06 17:36 | ED.GENADULT ---
HPI - General Adult General Chief complaint: Psychiatric Symptoms Stated complaint: Crisis, multiple complaints, paranoia Time Seen by Provider: 07/06/24 18:41 Source: patient Mode of arrival: ambulatory Limitations: other History of Present Illness ED Provider: Dr. Stephanie Ferreira HPI narrative: patient comes to the emergency room as a walk-in. Patient comes in very paranoid. when I walked into the patient's room, patient is talking to himself. Patient holding his hand holding an imaginary radio. patient states that he is talking over the [employer] radio seeking help. Patient states that he is very scared, FBI is after him. Patient states that he did nothing wrong but people are out to get him. States that his PTSD. Denies SI or HI Related Data Home Medications ?Medication ?Instructions ?Recorded ?Confirmed dextroamphetamine-amphetamine ER 30 mg PO BID@0500,0900 07/06/24 07/06/24 30 mg 24hr capsule,extend release (Adderall XR) Allergies Allergy/AdvReac Type Severity Reaction Status Date / Time Pork/Porcine Containing Allergy Mild UNKNOWN Verified 07/06/24 17:42 Products [PORK/PORCINE CONTAINING PRODUCTS] Review of Systems Review of Systems: Constitutional : No Weight loss, No Fever, No Chills, No Night Sweats, No Fatigue, No Malaise ENT/Mouth : No Hearing loss, No Ear Pain, No Nasal Congestion, No Sinus Pain, No Hoarseness, No sore throat, No Rhinorrhea, No Swallowing Difficulty Eyes: No Eye Pain, No Swelling, No Redness, No Foreign Body, No Discharge, No Vision Changes Cardiovascular : No Chest Pain, No SOB, No Dyspnea on Exertion, No Orthopnea, No Edema, No Palpitations Respiratory : No Cough, No Sputum, No Wheezing, No Smoke Exposure, No Dyspnea Gastrointestinal : No Nausea, No Vomiting, No Diarrhea, No Constipation, No abdominal Pain, No Hematochezia, No Melena Genitourinary : no irregular bleeding, No Dysuria, No Urinary Frequency, No Hematuria, No Urinary Incontinence, No Urgency, No Flank Pain, No Urinary Flow Changes, No Hesitancy Musculoskeletal : No joint pain, No Myalgias, No Joint Swelling Skin : No Skin Lesions, No rash Neuro : No Weakness, No Numbness, No Paresthesias, No Loss of Consciousness, No Dizziness, No Headache Psych : Complaining of PTSD, paranoia, denies SI or HI Heme/Lymph: No Bruising, No Bleeding,No Lymphadenopathy Endocrine : No Polyuria, No Polydipsia, No Temperature Intolerance [facility] Past Medical History Medical History Acute post-traumatic stress disorder PTSD (post-traumatic stress disorder) Narcolepsy ADHD Arthritis Vertigo Social History Social History Household Members: None Household Members Other:: 0 Housing: Other Housing Other:: Minimalist Do you presently have visiting nurse or other home services: No Alcohol intake: never Comment: patient asleep Cigarette Packs Per Day: 1 Cigarettes Per Day: 20.0 Years Smoked: 34 Second Hand Smoke Exposure: No Substance Use Type: Marijuana Advance Directives: No Advance Directives Information Provided: No Do you have a plan to hurt others: No Plan service: Yes ([employer]) Sexual orientation: Straight/Heterosexual Physical Exam ED Vital Signs: Vital Signs - 24 hr 07/08/24 05:18 Temperature 98.4 F Pulse Rate 73 Respiratory Rate 17 Blood Pressure 160/91 H Pulse Oximetry 99 Oxygen Delivery Method Room Air BMI result Body Mass Index 23.1 Const Other: Appearance: Alert. paranoid, talking to himself, holding an imaginary radio Eyes: Pupils equal, round and reactive to light. ENT: Pharynx normal. Neck: Normal inspection. Neck supple. No lymph nodes noted. No crepitus CVS: Normal heart rate and rhythm. Pulses normal. Normal S1 and S2 Respiratory: No respiratory distress. Breath sounds normal. No Wheezing. No rales Abdomen: Soft and nontender. No rigidity. No distention. Skin: Skin warm and dry. Normal skin color. Normal skin turgor. Extremities: No lower extremity edema. No Lacerations. No Rash Neuro: Oriented X 3. No motor deficit. No sensory deficit. Moving all extremities. No slurred speech. CN 2 through 12 grossly intact Psych: calm, paranoid, holding an imaginary radial, talking to me through the radio Course Course Course Narrative: RME, this is a rapid medical exam performed by Juancho Greenberg please refer to primary provider for complete H&P- 59 year old male with history of schizophrenia presents for evaluation of multiple complaints. He is complaining of chest pain, but also expressing paranoid delusions including, the FBI is coming to kill me. My father is visiting me from [place] the [place] to bring me home. He denies any drug use. Plan for medical clearance and care team consult Reevaluation(s) Reevaluation #1: The patient is a 59-year-old male being held in physician observation for psychiatric placement. The patient has a history of schizoaffective disorder. He seems to have a decompensation of his schizoaffective disorder. [facility] The patient is being held on a section 12. The care team has been in discussion with the [facility] system. Today the [facility] requested repeat labs especially a basic metabolic panel. The patient's creatinine had improved from 1.44 to 0.95. The patient is estimated GFR improved from 50 to greater than 60. The patient's estimated creatinine clearance improved from 60.9 up to 92.4. The patient seems to have had resolution of any possible acute kidney injury. Apparently the patient was drinking lot of cranberry juice last night. Plan has been to have the patient admitted at a [facility] facility for psychiatric reasons. The patient is very reluctant to go to a [facility] facility. The patient has not yet been formally accepted for transfer to a VA facility and therefore the patient will be kept in physician observation in our emergency room until a definite disposition is made. The patient has been stable. Otto Pascal Time: 17:36 Reevaluation #2: Physician observation continued. no acute events, PRN ativan ordered, IPBS, VS stable mild HTN WALLY 943am 07/08/24 Reevaluation #3: The patient has been held in the emergency department on physician observation for possible psychiatric placement. The patient seems to have chronic schizophrenia in his chronically delusional. There has been a plan to admit the patient to a [facility] but the patient essentially refused to go to the [facility]. He has now been in the emergency department for approximately 48 hours. Apparently he is seeming much more organized although he remains chronically delusional. He was seen by Psychiatry today and felt to be safe for discharge. I went to see the patient. He seems well groomed and has a cheerful demeanor. He seems chronically preoccupied with paranoia about his life in [place], [place] but expresses no suicidality or homicidality. He says that if he is discharged he plans to take a train from [employer] in [place] to [place] where he has friends. He says that he receives disability checks every month and that he has money he has access to for this purpose. The patient seems appropriate for discharge. We will therefore in physician observation. Time: 14:27 Medications Administered Generic Name Dose Route Start Last Admin Trade Name Freq PRN Reason Stop Dose Admin Amphetamine/Dextroamphetamine 30 mg 07/07/24 05:00 07/08/24 08:45 Dextroamphetamine/Amphetamine Xr 10 Mg Cap.Er.24h PO 30 mg BID@0500,0900 MIKE Administration Discontinued Medications Generic Name Dose Route Start Last Admin Trade Name Freq PRN Reason Stop Dose Admin Diphenhydramine HCl 50 mg 07/06/24 18:51 07/06/24 19:17 Diphenhydramine Hcl 25 Mg Capsule PO 07/06/24 18:52 Not Given ONCE ONE Haloperidol 5 mg 07/06/24 18:51 07/06/24 19:17 Haloperidol 5 Mg Tablet PO 07/06/24 18:52 Not Given ONCE ONE Lorazepam 2 mg 07/06/24 18:47 07/06/24 19:17 Lorazepam 1 Mg Tablet PO 07/06/24 18:48 2 mg ONCE ONE Administration Lorazepam 1 mg 07/07/24 08:55 07/07/24 09:03 Lorazepam 1 Mg Tablet PO 07/07/24 08:56 1 mg ONCE ONE Administration Lorazepam 2 mg 07/07/24 14:28 07/07/24 14:32 Lorazepam 1 Mg Tablet PO 07/07/24 14:29 2 mg ONCE ONE Administration Lorazepam 1 mg 07/07/24 20:20 07/07/24 20:29 Lorazepam 1 Mg Tablet PO 07/07/24 20:21 1 mg ONCE ONE Administration Nicotine 21 mg 07/07/24 14:28 07/07/24 14:32 Nicotine 21 Mg Patch.Td24 TRANSDERMA 07/07/24 14:29 21 mg ONCE ONE Administration Nicotine 21 mg 07/08/24 07:48 07/08/24 08:44 Nicotine 21 Mg Patch.Td24 TRANSDERMA 07/08/24 07:49 21 mg ONCE ONE Administration Medical Decision Making Medical Decision Making MDM Narrative: - patient is not SI or HI. However, patient is significantly decompensated. - Patient is now on a Section 12. - My interpretation of labs: Normal hematology, chemistries bumped, 1.61, previous labs For comparison were drawn over 3-1/2 years ago. we will give the patient p.o. fluids, about 1 L, then we will repeat labs. after drinking p.o. fluids, patient's creatinine became almost normal, now 1.44. P.o. fluids will be encouraged. - Care team consult pending - physician observation started at 01:00 Differential Diagnosis Differential Diagnoses: The differential diagnosis associated with the presentation includes ( paranoia, schizophrenia, HELEN, dehydration) Admission/Observation Consideration of admission/observation: Escalation of care including admission/observation considered ( patient is on a Section 12 under physician observation, waiting to be seen by the care team, inpatient level of care is likely) Lab Data MDM Lab Attestation statement: I reviewed the patient's lab results. 07/06/24 19:22 07/07/24 09:57 Labs: Lab Results 07/06/24 07/06/24 07/07/24 Range/Units 19:18 19:22 00:03 WBC 5.7 (4.8-10.8) X10*3/uL RBC 3.77 L (4.60-5.80) X10*6/uL Hgb 11.6 L (14.0-18.0) g/dl Hct 32.5 L (42.0-52.0) % MCV 86.2 (80.0-98.0) fL MCH 30.8 (27.0-33.0) pg MCHC 35.7 (31.0-36.0) g/dl RDW 13.9 (11.0-16.0) % Plt Count 224 (160-400) X10*3/uL MPV 8.3 L (9.4-12.4) fL Immature Gran % (Auto) 0.3 (0.0-0.4) % Neut % (Auto) 63.1 (45-73) % Lymph % (Auto) 24.0 (20-40) % [place] % (Auto) 8.4 (2-11) % Eos % (Auto) 3.5 (0-4) % Baso % (Auto) 0.7 (0-2) % Lymph # (Auto) 1.4 (1.2-4.9) X10*3/uL [place] # (Auto) 0.5 (0.1-1.2) X10*3/uL Eos # (Auto) 0.2 (0.0-0.4) X10*3/uL Baso # (Auto) 0.0 (0.0-0.2) X10*3/uL Abs Immat Gran (auto) 0.02 (0.00-0.03) X10*3/uL Absolute Neuts (auto) 3.6 (2.0-8.3) x10*3/uL Absolute Nucleated RBC 0.000 (0.0-0.012) X10*3/uL Nucleated RBC % (auto) 0.0 (0.0-0.2) /100WBC PT 11.3 (11.1-13.3) SEC INR 0.9 (0.9-1.1) Sodium 137 136 (135-145) mmol/L Potassium 3.5 3.1 L (3.3-5.1) mmol/L Chloride 103 105 (96-108) mmol/L Carbon Dioxide 22 18 L (22-29) mmol/L Anion Gap 16 16 (12-20) BUN 26 H 24 H (9-16) mg/dL Creatinine 1.61 H 1.44 H (0.5-1.4) mg/dL Estim Creat Clear Calc 54.5 60.9 Estimated GFR 44 50 Random Glucose 84 129 H (60-115) mg/dL Calcium 9.5 D 8.9 D (8.4-10.2) mg/dL Total Bilirubin 0.4 (0.0-1.0) mg/dL AST 22 (5-37) U/L ALT 16 (0-40) U/L Alkaline Phosphatase 121 H (39-117) U/L Troponin I High Sens 8.4 (<3.5-35.0) ng/L Total Protein 7.0 (6.5-8.0) g/dL Albumin 4.0 (3.5-5.0) g/dL Salicylates < 5.0 L (15-30) mg/dL Urine Opiates Screen Not Detected (Not Detect) Ur Buprenorphine Scrn Not Detected (Not Detect) ng/mL Ur Oxycodone Screen Not Detected (Not Detect) ng/mL Urine Methadone Screen Not Detected (Not Detect) ng/mL Urine Fentanyl Screen Not Detected (Not Detect) Acetaminophen < 3 (<30) mcg/mL Ur Barbiturates Screen Not Detected (Not Detect) Ur Phencyclidine Scrn Not Detected (Not Detect) Ur Amphetamines Screen POSITIVE H (Not Detect) U Benzodiazepines Scrn Not Detected (Not Detect) Urine Cocaine Screen Not Detected (Not Detect) U Marijuana (THC) Screen POSITIVE H (Not Detect) Ethyl Alcohol < 10 mg/dL COVID-19 (NISREEN) Negative (Negative) COVID-19 Clin Com See Note 07/07/24 Range/Units 09:57 WBC (4.8-10.8) X10*3/uL RBC (4.60-5.80) X10*6/uL Hgb (14.0-18.0) g/dl Hct (42.0-52.0) % MCV (80.0-98.0) fL MCH (27.0-33.0) pg MCHC (31.0-36.0) g/dl RDW (11.0-16.0) % Plt Count (160-400) X10*3/uL MPV (9.4-12.4) fL Immature Gran % (Auto) (0.0-0.4) % Neut % (Auto) (45-73) % Lymph % (Auto) (20-40) % [place] % (Auto) (2-11) % Eos % (Auto) (0-4) % Baso % (Auto) (0-2) % Lymph # (Auto) (1.2-4.9) X10*3/uL [place] # (Auto) (0.1-1.2) X10*3/uL Eos # (Auto) (0.0-0.4) X10*3/uL Baso # (Auto) (0.0-0.2) X10*3/uL Abs Immat Gran (auto) (0.00-0.03) X10*3/uL Absolute Neuts (auto) (2.0-8.3) x10*3/uL Absolute Nucleated RBC (0.0-0.012) X10*3/uL Nucleated RBC % (auto) (0.0-0.2) /100WBC PT (11.1-13.3) SEC INR (0.9-1.1) Sodium 137 (135-145) mmol/L Potassium 3.4 (3.3-5.1) mmol/L Chloride 106 (96-108) mmol/L Carbon Dioxide 23 (22-29) mmol/L Anion Gap 11 L (12-20) BUN 23 H (9-16) mg/dL Creatinine 0.95 (0.5-1.4) mg/dL Estim Creat Clear Calc 92.4 Estimated GFR > 60 Random Glucose 128 H (60-115) mg/dL Calcium 8.9 (8.4-10.2) mg/dL Total Bilirubin (0.0-1.0) mg/dL AST (5-37) U/L ALT (0-40) U/L Alkaline Phosphatase (39-117) U/L Troponin I High Sens 5.4 (<3.5-35.0) ng/L Total Protein (6.5-8.0) g/dL Albumin (3.5-5.0) g/dL Salicylates (15-30) mg/dL Urine Opiates Screen (Not Detect) Ur Buprenorphine Scrn (Not Detect) ng/mL Ur Oxycodone Screen (Not Detect) ng/mL Urine Methadone Screen (Not Detect) ng/mL Urine Fentanyl Screen (Not Detect) Acetaminophen (<30) mcg/mL Ur Barbiturates Screen (Not Detect) Ur Phencyclidine Scrn (Not Detect) Ur Amphetamines Screen (Not Detect) U Benzodiazepines Scrn (Not Detect) Urine Cocaine Screen (Not Detect) U Marijuana (THC) Screen (Not Detect) Ethyl Alcohol mg/dL COVID-19 (NISREEN) (Negative) COVID-19 Clin Com Critical Care Time Critical Care Time Critical Care Time: Yes Total Critical Care Time: 60 Attestation: I have personally provided critical care time. Time includes review of lab data, radiology results, discussion with consultants, and monitoring for potential decompensation. Intervention performed as documented. Discharge Plan Discharge Clinical Impression: Paranoid schizophrenia, HELEN (acute kidney injury) Patient Disposition: Still a Patient Prescriptions: No Action dextroamphetamine-amphetamine [Adderall XR] 30 mg Capsule,Extended Release 24hr 30 mg PO BID@0500,0900 Rx Instructions[facility] Interventions: [place]-Suicide Risk Severity Scale Last Done: 07/08/24 06:17 Print Language: Malagasy
--- NOTE | 2024-07-06 17:39 | ECG_ITS ---
Test Reason : PAIN Blood Pressure : / mmHG Vent. Rate : 069 BPM Atrial Rate : 069 BPM P-R Int : 170 ms QRS Dur : 098 ms QT Int : 392 ms P-R-T Axes : 054 021 021 degrees QTc Int : 420 ms Normal sinus rhythm Minimal voltage criteria for LVH, may be normal variant ( Sokolow-Dockery ) Borderline ECG No previous ECGs available Referred By: Cong Greenberg Electronically Signed By:DERICK HOUSTON
--- OUTSIDE RECORDS SUMMARY | 2024-07-06 17:59 | XMS_ITS | Continuity of Care Document ---
Author Organization [facility] Address [address] [place] [address], [place] [address]- Care Team Providers Care Coil Repair Technician Name Role Phone MISCELLANEOUS, PHYSICIAN Primary Care Physician Unavailable Encounter INP_FIN_([place]) [id number] Date(s): 07/04/23 - 07/04/[address] [place] [address]- Encounter Diagnosis Acute psychosis(Discharge Diagnosis) - 07/04/23 Discharge Disposition: Transfer Attending Physician: Dov Diallo DO Admitting Physician: Dov Diallo DO Reason for Visit PSYCHIATRIC SCREENING EXAM Allergies, Adverse Reactions, Alerts No Known Allergies Results Laboratory List Name Date .UDS Amphetamines Urine Qual 07/04/23 .UDS Barbiturates Urine Qual 07/04/23 .UDS Benzodiazepine Urine Qual 07/04/23 .UDS Cannabinoids Urine Qual 07/04/23 .UDS Cocaine Urine Qual 07/04/23 .UDS Opiates Urine Qual 07/04/23 .UDS Phencyclidine Urine Qual 07/04/23 Urinalysis w/Reflex Micro/Reflex Culture 07/04/23 .Differential Automated 2 07/04/23 Acetaminophen Level 07/04/23 Complete Blood Count w/Diff Auto (CBC w/ Diff Auto) 07/04/23 Comprehensive Metabolic Profile (CMP) Ethanol Level 07/04/23 Salicylate Level 07/04/23 COVID19 SARS Ag SUSANNA 07/04/23 07/04/23 Test Result Reference Range Specimen Source Labo ratory Sodium 138 mmol/L (Normal is 136-145 mmol/L) Blood [facility] Potassium 3.6 mmol/L (Normal is 3.4-5.1 mmol/L) Blood [facility] Chloride 105 mmol/L (Normal is 98-107 mmol/L) Blood [facility] Carbon Dioxide 24 mmol/L (Normal is 20-31 mmol/L) Blood [facility] BUN 16 mg/dL (Normal is 9-23 mg/dL) Blood [facility] Creatinine 0.89 mg/dL (Normal is 0.55-1.30 mg/dL) Blood [facility] eGFR 100 mL/min/1.73m?? (Normal is >=90 mL/min/1.73m??) Blood Glucose 94 mg/dL (Normal is 70-99 mg/dL) Blood [facility] Calcium 9.3 mg/dL (Normal is 8.7-10.4 mg/dL) Blood [facility] Anion Gap 9 (Normal is 3-11) Blood [facility] Albumin 4.0 gm/dL (Normal is 3.4-5.0 gm/dL) Blood [facility] Alkaline Phosphatase 117 unit/L (Normal is 50-136 unit/L) Blood [facility] ALT 17 unit/L (Normal is 10-49 unit/L) Blood [facility] AST 25 unit/L (Normal is 0-34 unit/L) Blood [facility] Bili Total 0.7 mg/dL (Normal is 0.3-1.2 mg/dL) Blood [facility] Prot Total 7.1 gm/dL (Normal is 6.0-8.0 gm/dL) Blood [facility] Globulin 3 Blood [facility] [place][note 2] Albumin/Globulin Ratio 1.0 Blood [facility] ETOH RawVal <6 mg/dL (Normal is 0-6 mg/dL) Blood [facility] Ethanol Lvl <0.006 Blood WBC 5.6 x10^3/mcL (Normal is 4.8-10.8 x10^3/mcL) [facility] RBC 3.95 x10^6/mcL (Normal is 4.50-5.90 x10^6/mcL) Blood [facility] Hgb 12.1 gm/dL (Normal is 13.5-17.5 gm/dL) Blood [facility] HCT 36.7 % (Normal is 41.0-53.0 %) Blood [facility] MCH 30.6 pg (Normal is 27.0-33.0 pg) Blood [facility] MCHC 33.0 gm/dL (Normal is 31.0-37.0 gm/dL) Blood [facility] MCV 93 fL (Normal is 80-94 fL) Blood [facility] Plt Cnt 238 x10^3/mcL (Normal is 130-400 x10^3/mcL) Blood [facility] MPV 8.2 fL (Normal is 9.0-12.0 fL) Blood [facility] RDW 44.8 fL (Normal is 37.0-54.0 fL) Blood [facility] Neutrophils% Auto 59.5 % (Normal is 45.0-74.0 %) Blood [facility] Lymphocytes% Auto 24.6 % (Normal is 16.0-45.0 %) Blood [facility] Monocytes% Auto 10.7 % (Normal is 4.0-10.0 %) Blood [facility] Basophils% Auto 1.4 % (Normal is 0.0-2.0 %) Blood [facility] Eosinophils% Auto 3.6 % (Normal is 0.0-7.0 %) Blood [facility] Immature Granulocytes% Auto 0.2 % (Normal is 0.0-0.5 %) Blood [facility] Neutrophils# Auto 3.35 x10^3/mcL (Normal is 2.16-8.00 x10^3/mcL) Blood [facility] Lymphocytes# Auto 1.38 x10^3/mcL (Normal is 0.75-4.86 x10^3/mcL) Blood [facility] Monocytes# Auto 0.60 x10^3/mcL (Normal is 0.20-1.08 x10^3/mcL) Blood [facility] Basophils# Auto 0.08 x10^3/mcL (Normal is 0.00-0.20 x10^3/mcL) Blood [facility] Eos# Auto 0.20 x10^3/mcL (Normal is 0.00-0.75 x10^3/mcL) Blood [facility] Immature Granulocytes# Auto 0.01 x10^3/mcL (Normal is 0.00-0.04 x10^3/mcL) Blood [facility] [id number] Negative (Normal is Negative) Nasopharyngeal [facility] Acetaminophen Lvl <6.8 mcg/mL (Normal is 10.0-20.0 mcg/mL) Blood [facility] Salicylate Lvl <3.3 mg/dL (Normal is 0.0-29.0 mg/dL) Blood [facility] MDS Amphetamines Ur Ql Positive Urine [facility] Barbiturates Ur Ql Negative Urine [facility] Benzodiazepine Ur Ql Negative Urine [facility] Cocaine Ur Ql Positive Urine [facility] MDS Opiates Ur Ql Negative Urine [facility] MDS Cannabinoid Ur Ql Negative Urine [facility] Phencyclidine Ur Ql Negative Urine [facility] Ur Color Colorless Urine [facility] [place][note 2] Ur Appearance Clear Urine [facility] [place] Ur Specific [place] 1.006 (Normal is 1.005-1.030) Urine [facility] Ur pH 6.5 (Normal is 5.0-9.0) Urine [facility] Ur Protein Negative mg/dL (Normal is Negative mg/dL) Urine [facility] Ur Glucose Negative mg/dL (Normal is Negative mg/dL) Urine [facility] Ur Ketone Negative (Normal is Negative) Urine [facility] Ur Bili Negative (Normal is Negative) Urine [facility] Ur Blood Negative (Normal is Negative) Urine [facility] Ur Nitrite Negative (Normal is Negative) Urine [facility] Ur Urobilinogen Normal mg/dL (Normal is 0.2-1.0 mg/dL) Urine [facility] Ur Leukocyte Esterase Negative (Normal is Negative) Urine [facility] Ur Collection Source U Clean Catch Urine N [facility] Dipstick Type? Auto Urine [facility] Reflex Microscopic Type? Not Reqd Urine [facility] Reflex Urine Culture? No Urine [facility] Laboratory Information [facility] Dr. Moises Jean Baptiste [address] [facility] [address] [place], [place] [address] [place] [address] CLIA Number: [id number] Dr. Moises Jean Baptiste [address] [facility] [address] [place], [place] [address] [place] [address] CLIA Number: [id number] Dr. Moises Jean Baptiste [address], [place] [address] [place] [address] CLIA Number: [id number] Dr. Moises Jean Baptiste [address], [place] [address] [place] [address] Vital Signs 07/04/23 Patient Height 177.8 cm Patient Weight (kg) 83.914 kg [facility] Body Weight Calculated 73 kg Blood Pressure 129/67mmHg (Normal is 95-12 0/59-81 mmHg) Mean Arterial Pressure, Cuff 88 mmHg SpO2 99 % Heart Rate Monitored 70 bpm (Normal is 60-100 bpm) Respiratory Rate 18 br/min (Normal is 10-2 1 br/min) Social History Social History Type Response Sex Male Note * Event Display: Admission Forms Authored Date: [id number] Patient Care team information Care Team Personnel Name: MISCELLANEOUS, PHYSICIAN INP Position: Physician - View Only Member Role: Primary Care Physician Name: Sergio Noble Rn Position: ED Nurse Member Role: ED Nurse Name: Dov Diallo DO Position: ED Physician Member Role: Attending Physician Address: Address: [address] [place] [address]
--- OUTSIDE RECORDS SUMMARY | 2024-07-06 17:59 | XMS_ITS | Continuity of Care Document ---
Author Organization [facility] Address [address] [place] [address]- Care Team Providers Care Application Project Leader Name Role Phone UNKNOWN, DOCTOR Primary Care Physician Unavailab le Encounter [email or web address] [id number] Date(s): 12/07/20 - 12/07/[address] [address]- Encounter Diagnosis PTSD (post-traumatic stress disorder)(Discharge Diagnosis) - 12/07/20 Discharge Disposition: Home/Routine Attending Physician: DEDE SALOMON MD Referring Physician: NONASSIGNED, PHYSICIAN Reason for Visit PYSCH EVAL/MEDS Allergies, Adverse Reactions, Alerts No Known Medication Allergies Substance Reaction Severity Status Pork Active Medications amLODIPine 10 Milligram By Mouth ONCE A DAY. amphetamine-dextroamphetamin e (Adderall 30 mg oral tablet) 1 tab(s) By Mouth 2 TIMES A DAY. Problem List Condition Effective Dates Status Health Status Inform ant HTN (hypertension)(Confirmed) Active Vital Signs 12/07/20 Blood Pressure 156/97mmHg Height (cm) 178 cm Pulse 78 BPM O2 Saturation 97 % Respiratory Rate 16 br/min Social History Social History Type Response Smoking Status Yes, smoke everyday Sex Male Hospital Discharge Instructions Patient Education 12/07/2020 02:06:46 PTSD (Post-Traumatic Stress Disorder) Post-Traumatic Stress Disorder (PTSD): Care Instructions Your Care Instructions Post-traumatic stress disorder (PTSD) is a mental condition that can result from being in or seeinga traumatic or terrifying event. These events can include combat, a terrorist attack, a natural disaster, a serious accident, an assault, or a rape. If you have PTSD, you may often relive the experience in nightmares or flashbacks. These are clear and frightening memories of the event. You may alsohave trouble sleeping. PTSD affects people in very different ways. It can interfere with daily activities such as work or school, and it can make you withdraw from friends or loved ones. Follow-up care is a trinh part of your treatment and safety. Be sure to make and go to all appointments, and call your doctor if you are having problems. It's also a good idea to know your test resultsand keep a list of the medicines you take. How can you care for yourself at home? Take medicines exactly as directed. Call your doctor if you think you are having a problem withyour medicine. ??? Go to your counseling sessions and follow-up appointments. ??? Recognize and accept your anxiety. Then, when you are in a situation that makes you anxious, say to yourself, This is not an emergency. I feel uncomfortable, but I am not in danger. I can keep going even if I feel anxious. ??? Be kind to your body: ??? Relieve tension with exercise or a massage. ??? Get enough rest. ??? Avoid alcohol, caffeine, nicotine, and illegal drugs. They can increase your anxiety level and cause sleep problems. ??? Learn and do relaxation techniques. See below for more about these techniques. ??? Engage your mind. Get out and do something you enjoy. Go to a funny movie, or take a walk or hike. Plan your day. Having too much or too little to do can make you anxious. ??? Keep a record of your symptoms. Discuss your fears with a good friend or family member, or joina support group for people with similar problems. Talking to others sometimes relieves stress. ??? Get involved in social groups, or volunteer to help others. Being alone sometimes makes things seem worse than they are. ??? Get at least 30 minutes of exercise on most days of the week. Walking is a good choice. You also may want to do other activities, such as running, swimming, cycling, or playing tennis or team sports. ??? Keep the numbers for these national suicide hotlines: 6-519-797-TALK ( ) and 6-551-EPMVUJT ( ). If you or someone you know talks about suicide or feeling hopeless, get help right away. Relaxation techniques Do relaxation exercises 10 to 20 minutes a day. You can play soothing, relaxing music while you do them, if you wish. ??? Tell others in your house that you are going to do your relaxation exercises. Ask them not to disturb you. ??? Find a comfortable place, away from all distractions and noise. ??? Lie down on your back, or sit with your back straight. ??? Focus on your breathing. Make it slow and steady. ??? Breathe in through your nose. Breathe out through either your nose or mouth. ??? Breathe deeply, filling up the area between your navel and your rib cage. Breathe so that your belly goes up and down. ??? Do not hold your breath. ??? Breathe like this for 5 to 10 minutes. Notice the feeling of calmness throughout your whole body. As you continue to breathe slowly and deeply, relax by doing the following for another 5 to 10 minutes: ??? Tighten and relax each muscle group in your body. You can begin at your toes and work your way up to your head. ??? Imagine your muscle groups relaxing and becoming heavy. ??? Empty your mind of all thoughts. ??? Let yourself relax more and more deeply. ??? Become aware of the state of calmness that surrounds you. ??? When your relaxation time is over, you can bring yourself back to alertness by moving your fingers and toes and then your hands and feet and then stretching and moving your entire body. Sometimespeople fall asleep during relaxation, but they usually wake up shortly afterward. ??? Always give yourself time to return to full alertness before you drive a car or do anything that might cause an accident if you are not fully alert. Never play a relaxation tape while you drive acar. When should you call for help? Call 911 anytime you think you may need emergency care. For example, call if: ??? You feel you cannot stop from hurting yourself or someone else. Call the National Suicide Prevention Lifeline at if you or someone you know is: ??? Feeling hopeless or thinking of hurting or killing themselves. Watch closely for changes in your health, and be sure to contact your doctor if: ??? Your PTSD symptoms are getting worse. ??? You have new or worse symptoms of anxiety or depression. ??? You are not getting better as expected. Where can you learn more? Go to https://www.[employer].net/patientEd Enter X299 in the search box to learn more about Post-Traumatic Stress Disorder (PTSD): Care Instructions. Current as of: August 08, 2020?Content Version: 12.7 ?? [id number] [employer]. Care instructions adapted under license by your healthcare professional. If you have questions about a medical condition or this instruction, always ask your healthcare professional. [employer] disclaims any warranty or liability for your use of this information. Functional Status 12/07/20 Tested for COVID-19 No Does patient have viral resp illness No Direct close contact with COVID-19 No Travel to [place], [place] etc., No
--- OUTSIDE RECORDS SUMMARY | 2024-07-06 17:59 | XMS_ITS | Continuity of Care Document ---
Author Organization [facility] Address [address] [place] [address]- Care Team Providers Care Edge Grinder Machine Name Role Phone UNKNOWN PHY, PRIMARY CARE Primary Care Physician Unavailable Encounter [id number] [id number] Date(s): 09/21/22 - 09/21/22 [facility] [place] [address] [place] [address]- Encounter Diagnosis Homeless(Discharge Diagnosis) - 09/21/22 Chronic post-traumatic stress disorder (PTSD)(Discharge Diagnosis) - 09/21/22 Agitation(Discharge Diagnosis) - 09/21/22 Threatening behavior(Discharge Diagnosis) - 09/21/22 Discharge Disposition: DISCHARGED HOME/SELF CARE Attending Physician: MICHELLE ALCARAZ MD Admitting Physician: MICHELLE ALCARAZ MD Allergies, Adverse Reactions, Alerts Substance Reaction Severity Status Depakote Unknown Active Wellbutrin Unknown Active Medications clonazePAM 1 mg oral tablet = 1 tab(s), Oral, BID, # 30 tab(s), 0 Refill(s) Start Date: 09/21/22 Status: Ordered dextroamphetamine-amphetamine 30 mg oral tablet TAKE 1 TABLET BY MOUTH TWO TIMES A DAY Start Date: 09/21/22 Status: Ordered KlonoPIN 2 mg oral tablet = 1 tab(s), Oral, TID, 0 Refill(s) Start Date: 09/21/22 Status: Ordered Mental Status 09/21/22 Orientation Assessment Oriented x 4 Affect/Behavior Anxious, Impulsive, Inappropriate Hallucinations Present None Problem List Condition Confirmation Course Effective Dates Status Health St atus Informant At risk for narcolepsy Confirmed Active Chronic post-traumatic stress disorder (PTSD) Confirmed Active Vital Signs Most recent to oldest [Reference Range]: 1 Patient Height 182.88 cm (09/21/22 10:33 PM) Patient Weight (kg) 83.914 kg (09/21/22 10:33 PM) [place] Body Weight Calculated 77.6 kg (09/21/22 10:33 PM) Blood Pressure [95-120/59-81 mmHg] 137/8 8mmHg *HI* (09/22/22 12:16 AM) Mean Arterial Pressure, Cuff 122 mmHg (09/21/22 10:33 PM) SpO2 99 % (09/22/22 12:16 AM) Peripheral Pulse Rate [60-100 bpm] 78 bp m (09/22/22 12:16 AM) Respiratory Rate [10-21 br/min] 18 br/mi n (09/22/22 12:16 AM) Social History Social History Type Response Smoking Status Tobacco use status 3 0 days prior to admission No tobacco use of any form;Never (less than 100 in lifetime) entered on: 09/21/22 Sex Male Hospital Discharge Instructions Patient Education 09/21/2022 22:58:04 Managing Stress, Adult Managing Stress, Adult Feeling a certain amount of stress is normal. Stress helps our body and mind get ready to deal withthe demands of life. Stress hormones can motivate you to do well at work and meet your responsibilities. However severe or long-lasting (chronic) stress can affect your mental and physical health. Chronic stress puts you at higher risk for anxiety, depression, and other health problems like digestive problems, muscle aches, heart disease, high blood pressure, and stroke. What are the causes? Common causes of stress include: ??? Demands from work, such as deadlines, feeling overworked, or having long hours. ??? Pressures at home, such as money issues, disagreements with a spouse, or parenting issues. ??? Pressures from major life changes, such as divorce, moving, loss of a loved one, or chronic illness. You may be at higher risk for stress-related problems if you do not get enough sleep, are in poor health, do not have emotional support, or have a mental health disorder like anxiety or depression. How to recognize stress Stress can make you: ??? Have trouble sleeping. ??? Feel sad, anxious, irritable, or overwhelmed. ??? Lose your appetite. ??? Overeat or want to eat unhealthy foods. ??? Want to use drugs or alcohol. Stress can also cause physical symptoms, such as: ??? Sore, tense muscles, especially in the shoulders and neck. ??? Headaches. ??? Trouble breathing. ??? A faster heart rate. ??? Stomach pain, nausea, or vomiting. ??? Diarrhea or constipation. ??? Trouble concentrating. Follow these instructions at home: Lifestyle ??? Identify the source of your stress and your reaction to it. See a therapist who can help you change your reactions. ??? When there are stressful events: ??? Talk about it with family, friends, or co-workers. ??? Try to think realistically about stressful events and not ignore them or overreact. ??? Try to find the positives in a stressful situation and not focus on the negatives. ??? Cut back on responsibilities at work and home, if possible. Ask for help from friends or familymembers if you need it. ??? Find ways to cope with stress, such as: ??? Meditation. ??? Deep breathing. ??? Yoga or adriana chi. ??? Progressive muscle relaxation. ??? Doing art, playing music, or reading. ??? Making time for fun activities. ??? Spending time with family and friends. ??? Get support from family, friends, or spiritual resources. Eating and drinking ??? Eat a healthy diet. This includes: ??? Eating foods that are high in fiber, such as beans, whole grains, and fresh fruits and vegetables. ??? Limiting foods that are high in fat and processed sugars, such as fried and sweet foods. ??? Do not skip meals or overeat. ??? Drink enough fluid to keep your urine pale yellow. Alcohol use ??? Do not drink alcohol if: ??? Your health care provider tells you not to drink. ??? You are , may be , or are planning to become . ??? Drinking alcohol is a way some people try to ease their stress. This can be dangerous, so if you drink alcohol: ??? Limit how much you use to: ??? 0???1 drink a day for women. ??? 0???2 drinks a day for men. ??? Be aware of how much alcohol is in your drink. In the [place] one drink equals one 12 oz bottle of beer (355 mL), one 5 oz glass of wine (148 mL), or one 1?? oz glass of hard liquor (44 mL). Activity ??? Include 30 minutes of exercise in your daily schedule. Exercise is a good stress supervisor [employer]. ??? Include time in your day for an activity that you find relaxing. Try taking a walk, going on a bike ride, reading a book, or listening to music. ??? Schedule your time in a way that lowers stress, and keep a consistent schedule. Prioritize whatis most important to get done. General instructions ??? Get enough sleep. Try to go to sleep and get up at about the same time every day. ??? Take [id number]-fdkwpve and prescription medicines only as told by your health care provider. ??? Do not use any products that contain nicotine or tobacco, such as cigarettes, e-cigarettes, andchewing tobacco. If you need help quitting, ask your health care provider. ??? Do not use drugs or smoke to cope with stress. ??? Keep all follow-up visits as told by your health care provider. This is important. Where to find support ??? Talk with your health care provider about stress management or finding a support group. ??? Find a therapist to work with you on your stress management techniques. Contact a health care provider if: ??? Your stress symptoms get worse. ??? You are unable to manage your stress at home. ??? You are struggling to stop using drugs or alcohol. Get help right away if: ??? You may be a danger to yourself or others. ??? You have any thoughts of or suicide. If you ever feel like you may hurt yourself or others, or have thoughts about taking your own life,get help right away. You can go to your nearest emergency department or call: ??? Your local emergency services (911 in the [place] ??? A suicide crisis helpline, such as the National Suicide Prevention Lifeline at . This is open 24 hours a day. Summary ??? Feeling a certain amount of stress is normal, but severe or long-lasting (chronic) stress can affect your mental and physical health. ??? Chronic stress can put you at higher risk for anxiety, depression, and other health problems like digestive problems, muscle aches, heart disease, high blood pressure, and stroke. ??? You may be at higher risk for stress-related problems if you do not get enough sleep, are in poor health, lack emotional support, or have a mental health disorder like anxiety or depression. ??? Identify the source of your stress and your reaction to it. Try talking about stressful events with family, friends, or co-workers, finding a coping method, or getting support from spiritual resources. ??? If you need more help, talk with your health care provider about finding a support group or a mental health therapist. This information is not intended to replace advice given to you by your health care provider. Make sure you discuss any questions you have with your health care provider. Document Revised: 05/30/2020 Document Reviewed: 05/30/2020 Elsevier Patient Education ?? 2020 [employer]Agame. Follow Up Care 09/21/2022 22:12:22 With:Follow up with primary care provider Address:Unknown When:3 to 5 days With:PRIMARY UNKNOWN Address:Unknown When:1 to 2 days Patient Care team information Care Team Personnel Name: UNKNOWN CARSON ENGELECTRICAL SIGN SERVICER Member Role: Primary Care Physician Name: MICHELLE ALCARAZ MD Position: ED Physician Member Role: Attending Physician Address: Address: [address] [place] [address] [place] [address] [place] Name: Yudith Reddy Rn Position: ED Nurse Member Role: ED Nurse Name: Mark Valderrama MD Wood Router Hand Position: ED Flight Service Specialist Member Role: ED Flight Service Specialist
--- OUTSIDE RECORDS SUMMARY | 2024-07-06 17:59 | XMS_ITS | Patient Health Record ---
Author Organization [facility] Billing Info Address [address] [place] [id number] Support Name Relationship Address Phone NALLELY MCLEAN Guarantor Unknown Reason For Referral No Information Social History Tobacco Use: Social History Observation Description Date Smoking Status WARNING: Information temporarily unavailable Tobacco Status: Question Answer Notes Patient is a never smoker Plan Of Treatment No Information
--- OUTSIDE RECORDS SUMMARY | 2024-07-06 17:59 | XMS_ITS | Continuity of Care Document ---
Author Organization [facility] Address Unknown Care Team Providers Care Hvac Technician Residential Name Role Phone UNKNOWN, DOCTOR Primary Care Physician Unavailab le Encounter REGINAFIN [id number] Date(s): 12/04/20 - 12/04/20 [facility] Discharge Disposition: Left Before Seen Attending Physician: KARINE ALBERTO MD Referring Physician: NONASSIGNED, PHYSICIAN Reason for Visit HIGH BLOOD PRESSURE Allergies, Adverse Reactions, Alerts No Known Medication Allergies Substance Reaction Severity Status Pork Active Medications amLODIPine 10 Milligram By Mouth ONCE A DAY. amphetamine-dextroamphetamin e (Adderall 30 mg oral tablet) 1 tab(s) By Mouth 2 TIMES A DAY. ibuprofen 600 Milligram By Mouth Every 6 Hours. Problem List Condition Effective Dates Status Health Status Inform ant HTN (hypertension)(Confirmed) Active Vital Signs 12/04/20 Blood Pressure 138/98mmHg Pulse 83 BPM O2 Saturation 98 % Respiratory Rate 16 br/min Social History Social History Type Response Smoking Status Yes, smoke everyday Sex Male Functional Status 12/04/20 Tested for COVID-19 No Does patient have viral resp illness No Direct close contact with COVID-19 No Travel to [place], [place] etc., No
--- OUTSIDE RECORDS SUMMARY | 2024-07-06 17:59 | XMS_ITS | Continuity of Care Document ---
Author Organization [facility] Address [address] [place] [id number] Encounter [facility] FINNBR [id number] Date(s): 03/30/23 - 03/30/23 [facility] [address] [place] [address], [id number] Encounter Diagnosis Weakness(Discharge Diagnosis) - 03/30/23 Discharge Disposition: Left Against Medical Advice Attending Physician: MD Arias Daniel John Allergies, Adverse Reactions, Alerts No Known Medication Allergies Medications Adderall 30 mg oral tablet Start: 12/06/21 18:39:00 EST, 1 tab, PO, bid, Disp# 60 tab, Refills: 0 Start Date: 12/06/21 Stop Date: 01/05/22 Status: Ordered Problem List Condition Confirmation Course Effective Dates Status Health St [facility] Informant ADHD Confirmed Active Narcolepsy Confirmed Active Diagnosis Diagnosis Type Effective Dates Health [facility] Informant Weakness Discharge Diagnosis 03/30/23 Non-Specified Results Laboratory List Name Date Alcohol Level. (Ethanol Level, ETOH Leve l.) 03/30/23 Automated Differential. 03/30/23 CBC w/ Diff. 03/30/23 Comprehensive Metabolic Panel. (CMP.) Creatine Kinase. (CPK.) 03/30/23 HIV Ag/Ab Combo /2 Screen. 03/30/23 RPR c/ Reflex. 03/30/23 Thyroid Stimulating Hormone. (TSH .) 03/16 04/07 Most recent to oldest [Reference Range]: 1 eGFR CKD-EPI [>=60 mL/min/1.73 m2] 68 mL /min/1.73 m2 (03/30/23 2:19 PM) Estimated CrCl 69.97 mL/min (03/30/23 3:04 PM) RDW-CV [11.5-14.2 %] 13.1 % (03/30/23 2:19 PM) RDW-SD 42 *NA* (03/30/23 2:19 PM) Nuc RBC Relative Count 0 /100 WBCs *NA* (03/30/23 2:19 PM) Nuc RBC Abs Count 0.00 K/uL *NA* (03/30/23 2:19 PM) HIV 1,2 Combo Antigen/Antibody [Non-Reac tive] Non-Reactive (03/30/23 2:19 PM) CO2 [22-29 mmol/L] 24 mmol/L (03/30/23 2:19 PM) Ethanol Level. [<=10.1 mg/dL] <10.0 mg/d L (03/30/23 2:19 PM) MPV [9.0-12.2 fL] 8.1 fL *LOW* (03/30/23 2:19 PM) Immature Gran% 0.2 % *NA* (03/30/23 2:19 PM) Neut% 65.9 % *NA* (03/30/23 2:19 PM) Lymph% 23.1 % *NA* (03/30/23 2:19 PM) Gibson% 7.1 % *NA* (03/30/23 2:19 PM) Baso% 1.3 % *NA* (03/30/23 2:19 PM) Eos% 2.4 % *NA* (03/30/23 2:19 PM) Immat Gran, Abs [0.00-0.40 K/uL] 0.01 K/ uL (03/30/23 2:19 PM) Neut, Abs [2.00-7.70 K/uL] 3.60 K/uL (03/30/23 2:19 PM) Lymph, Abs [1.00-3.40 K/uL] 1.26 K/uL (03/30/23 2:19 PM) Gibson, Abs [0.00-1.00 K/uL] 0.39 K/uL (03/30/23 2:19 PM) Baso, Abs [0.00-0.10 K/uL] 0.07 K/uL (03/30/23 2:19 PM) Eos, Abs [0.00-0.50 K/uL] 0.13 K/uL (03/30/23 2: PM) Anion Gap [5-14 mmol/L] 11 mmol/L (03/30/23: PM) Alb [3.5-5.2 g/dL] 4.3 g/dL (03/30/23: PM) Alk Phos [40-130 unit/L] 101 unit/L (03/30/23: PM) ALT [0-41 unit/L] 20 unit/L (03/30/23: PM) AST [0-40 unit/L] 31 unit/L (03/30/23: PM) BUN [6-23 mg/dL] 25 mg/dL *HI* (03/30/23 PM) Ca [8.4-10.2 mg/dL] 9.1 mg/dL (03/30/23 PM) CPK [39-308 unit/L] 696 unit/L *HI* (03/30/23 PM) Cl- [98-107 mmol/L] 98 mmol/L (03/30/23: PM) Cret [0.70-1.30 mg/dL] 1.24 mg/dL (03/30/23: PM) Glu [74-109 mg/dL] 98 mg/dL (03/30/23: PM) Hct [35.0-44.0 %] 35.8 % (03/30/23: PM) Hgb [13.0-17.0 g/dL] 12.2 g/dL *LOW* (03/30/23) K [3.5-5.1 mmol/L] 3.7 mmol/L (03/30/23: PM) MCH [28.0-33.0 pg] 30.1 pg (03/30/23: PM) MCHC [32.0-36.0 g/dL] 34.1 g/dL (03/30/23: PM) MCV [81.0-96.0 fL] 88.4 fL (03/30/23: PM) Na [136-145 mmol/L] 133 mmol/L *LOW* (5/15/23 2:19 PM) Plts [150-350 K/uL] 253 K/uL (03/30/23 2:19 PM) RBC [4.40-5.60 M/uL] 4.05 M/uL *LOW* (03/30/23 2:19 PM) RPR [Non-reactive] Non-reactive (03/30/23 2:19 PM) T Bili [0.0-1.2 mg/dL] 0.5 mg/dL (03/30/23 2:19 PM) Prot [6.4-8.3 g/dL] 7.1 g/dL (03/30/23 2:19 PM) TSH [0.30-4.20 uIU/mL] 1.58 uIU/mL (03/30/23 2:19 PM) WBC [4.00-10.40 K/uL] 5.46 K/uL (03/30/23 2:19 PM) Vital Signs Most recent to oldest [Reference Range]: 1 Patient Weight 81 kg (03/30/23 1:47 PM) Social History Social History Type Response Sm[facility] Status [facility] department Summary note * MD Juana, Cong De Leon: MODIFY, MODIFY, PERFORM Event Display: ED Summary Authored Date: [id number] Basic Information Time Seen: MD Juana, Cong De Leon ??03/30/2023 13:45 Chief Complaint Pt found to be not acting right by PD, EMS state he is a verteran with mental health hx, stating his right leg is not functioning and he has a hole in his tongue, per ems pt walked with a normal gait. Pt does have a large ulcer on tongue History of Present Illness The patient is a 58-year-old male presenting today with??difficulty walking??due to difficulty??using his right leg feels that he is lost coordination of the right leg in addition??complains of a??fall on the left side of his tongue. ??Patient states that??he had trouble walking starting at 7 AM yesterday more than 24 hours ago.?? Patient states that he has to exert a great amount of effort to??move his right leg and feels that he has trouble specifically??using and manipulating the right??knee. ??The patient states he has been dragging his foot as a result has fallen between 15 and 17 times since yesterday.?? Patient denies striking his head denies any??pain??or residual??injury or fallingin fact denies pain in the knee or anywhere else.?? The patient does state that he has a history of??septic joint in the right knee and states that he has had to have it washed out and has had??a history of??a broken back as well??but denies other medical problems. ??It appears that [facility] where he was worked up for??delusions and an HELEN but ultimately was discharged at his own request.?? The patient??was seen by psychiatry at that time who felt he did not represent a danger to himself or others and did not need to be hospitalized.?? Patientsent in today??because he was found by??police to not be acting normally.?? EMS reported that he dima with mental health issues and??for EMS he did walk with a normal gait.?? Other than what he describes as having to use a large amount of effort??to move his right leg,??he denies other symptoms. ??Denies fevers or chills denies chest pain or shortness of breath. Review of Systems A 14 point review of systems was performed and negative except as documented above. Physical Exam Vitals & Measurements WT:??81.000??kg??(Dosing)?? WT:??81??kg?? Head: Normocephalic/Atraumatic. Ears: Externally Normal. Nose: No bleeding, no congestion, no deformity. Mouth: There is a??approximately 1 cm??flattened??ulceration??on the lateral posterior aspect of the patient's tongue which is nonbleeding??nonerythematous. Oral mucosa are dry Chest: Equal and symmetric chest rise bilaterally. Cardiac: RRR, No murmurs, rubs, or gallops. Pulmonary: clear lungs. Abdomen: normoactive bowel sounds, no rebound, no tenderness, no guarding. Extremity: No lower extremity edema.?On dedicated testing of the right leg??there is no??anterior posterior??ligamentous laxity??to suggest ligamentous injury. Neuro:??Cranial nerves II through XII are intact however the patient does have??bidirectional horizontal nystagmus??on testing of extraocular movements.?? There is no facial droop sensory to the faceis intact??pupils are equal round and reactive to light??tongue protrudes in the midline.?? Patienthas??absent reflexes in the bilateral patellar.?? 5 out of 5 dorsi plantarflexion 5 out of 5 hip flexion extension??5 out of 5 pocket marker 5 out of 5 elbow flexion extension.?? Sensation is intact to light touch in all 4 extremities??[id number]??is without any dysmetria.?? Testing the patient does appear to be??swinging right leg somewhat awkwardly.?? However he has no antalgia. Psychiatric:??Patient is??speaking softly??and??is very polite.?? No??flight of ideas no pressured speech.?? No clear evidence of delusion no clear evidence the patient is responding to internal stimuli no suicidal or homicidal ideation. Medical Decision Making Overall 58-year-old male presenting today for evaluation of difficulty using the right leg??primarily he states he had difficulty moving it and found to be not acting normally by police. ??However??the patient is??acting a bit odd??he does not appear to be delusional does not appear to be psychotic.?? In terms of his difficulty using the right leg I do think it is possible this is related to??a CVA especially since there is no knee pain or back pain associated with it as would be expected if itwas radicular or??related to??local??knee pain.?? We will obtain??CT of the patient's head will??obtain basic lab work??and given the ulcer on the tongue??obtain??ethanol level UDS RPR??and HIV testing.?? We will??admit patient to hospital given??what seems to be change in mental status and??new right??leg??weakness.?? At this point,??I do not think the patient requires inpatient psychiatric hospitalization as he does not appear to be a danger to himself or anyone else.?? It does appear that when hospitalized at [facility]??he was having more pressured speech and was only minimally interactive with the hospital team which is certainly not the case today in fact the patient is very??polite??and??not excessively talkative but does answer questions directly without hesitation. Reexamination/Reevaluation Patient was declining??EKG and further work-up. ??Lab work as reviewed is overall reassuring slightelevation of CPK??creatinine is improved from prior value on March 27.?? Patient declines further work-up I do believe that the patient has capacity.?? He thanked me for my care and??walked out of the e mergency department.?? Although he??is a bit odd he does not??demonstrate any??actions that I believe would be dangerous.?? Patient declined further work- up and left AGAINST MEDICAL ADVICE he was notwilling to stay to sign AGAINST MEDICAL ADVICE departure paperwork Assessment/Plan Weakness Medication Reconciliation Unchanged amphetamine-dextroamphetamine (Adderall 30 mg oral tablet)1 tab(s) by mouth 2 times daily for 30 Days. Refills: 0. Problem List/Past Medical History Ongoing ADHD Narcolepsy Allergies No Known Medication Allergies Lab Results Chemistry?? LATEST RESULTS?? HISTORICAL RESULTS?? Na?? 03/30/23 14:19?? 133 ??Low?? 03/27/23?? 137 mmol/L?? K?? 03/30/23 14:19?? 3.7?? 03/27/23?? 3.6 mmol/L?? Cl-?? 03/30/23 14:19?? 98?? 03/27/23?? 102 mmol/L?? CO2?? 03/30/23 14:19?? 24? Anion Gap?? 03/30/23 14:19?? 11?? 03/27/23?? 14 mmol/L?? BUN?? 03/30/23 14:19?? 25 ??High?? 03/27/23?? 21 mg/dL?? Cret?? 03/30/23 14:19?? 1.24?? 03/27/23?? 1.40 mg/dL ??High?? Estimated CrCl?? 03/30/23 15:04?? 69.97?? 03/27/23?? 61.97?? eGFR CKD-EPI?? 03/30/23 14:19?? 68?? 03/27/23?? 59 mL/min/1.73 m2 ??Low?? Glu?? 03/30/23 14:19?? 98?? 03/27/23?? 131 mg/dL ??High?? Ca?? 03/30/23 14:19?? 9.1?? 03/27/23?? 9.3 mg/dL? CBC?? LATEST RESULTS?? HISTORICAL RESULTS?? WBC?? 03/30/23 14:19?? 5.46?? 03/27/23?? 3.90 K/uL ??Low?? Hgb?? 03/30/23 14:19?? 12.2 ??Low?? 03/27/23?? 12.6 g/dL ??Low?? Hct?? 03/30/23 14:19?? 35.8?? 03/27/23?? 36.3 % ??Low?? RBC?? 03/30/23 14:19?? 4.05 ??Low?? 03/27/23?? 4.17 M/uL ??Low?? MCV?? 03/30/23 14:19?? 88.4?? 03/27/23?? 87.1 fL?? MCHC?? 03/30/23 14:19?? 34.1?? 03/27/23?? 34.7 g/dL?? MCH?? 03/30/23 14:19?? 30.1?? 03/27/23?? 30.2 pg?? RDW-CV?? 03/30/23 14:19?? 13.1? RDW-SD?? 03/30/23 14:19?? 42? Plts?? 03/30/23 14:19?? 253?? 03/27/23?? 265 K/uL?? Nuc RBC Relative Count?? 03/30/23 14:19?? 0? Nuc RBC Abs Count?? 03/30/23 14:19?? 0.00? MPV?? 03/30/23 14:19?? 8.1 ??Low?? 03/27/23?? 8.5 fL ??Low?? Immature Gran%?? 03/30/23 14:19?? 0.2?? 03/26/23?? 0.2 %?? Neut%?? 03/30/23 14:19?? 65.9?? 03/26/23?? 69.9 %?? Lymph%?? 03/30/23 14:19?? 23.1?? 03/26/23?? 16.7 %?? Gibson%?? 03/30/23 14:19?? 7.1?? 03/26/23?? 10.8 %?? Baso%?? 03/30/23 14:19?? 1.3?? 03/26/23?? 1.2 %?? Eos%?? 03/30/23 14:19?? 2.4?? 03/26/23?? 1.2 %?? Immat Gran, Abs?? 03/30/23 14:19?? 0.01?? 03/26/23?? 0.01 K/uL?? Neut, Abs?? 03/30/23 14:19?? 3.60?? 03/26/23?? 4.64 K/uL?? Lymph, Abs?? 03/30/23 14:19?? 1.26?? 03/26/23?? 1.11 K/uL?? Gibson, Abs?? 03/30/23 14:19?? 0.39?? 03/26/23?? 0.72 K/uL?? Baso, Abs?? 03/30/23 14:19?? 0.07?? 03/26/23?? 0.08 K/uL?? Eos, Abs?? 03/30/23 14:19?? 0.13?? 03/26/23?? 0.08 K/uL? Liver/GI?? LATEST RESULTS?? HISTORICAL RESULTS?? ALT?? 03/30/23 14:19?? 20?? 03/26/23?? 20 unit/L?? T Bili?? 03/30/23 14:19?? 0.5?? 03/26/23?? 0.5 mg/dL?? Alk Phos?? 03/30/23 14:19?? 101?? 03/26/23?? 109 unit/L?? AST?? 03/30/23 14:19?? 31?? 03/26/23?? 25 unit/L? Nutrition?? LATEST RESULTS?? HISTORICAL RESULTS?? Alb?? 03/30/23 14:19?? 4.3?? 03/26/23?? 4.3 g/dL?? Prot?? 03/30/23 14:19?? 7.1?? 03/26/23?? 7.6 g/dL? Cardiac/Lipi?? LATEST RESULTS?? CPK?? 03/30/23 14:19?? 696 ??High? Endocrine?? LATEST RESULTS?? HISTORICAL RESULTS?? TSH?? 03/30/23 14:19?? 1.58?? 12/02/21?? 1.34 uIU/mL? Toxicology?? LATEST RESULTS?? Ethanol Level.?? 03/30/23 14:19?? <10.0? Electronic Signature on File Electronically Reviewed/Signed by: Cong Arias MD Author Signature Dt/Tm:03/30/2023 09:13 PM Emergency Medicine DJ Patient Care team information Care Team Personnel Name: Susan De Keri Position: Pharmacist Member Role: Pharmacy - Lifetime Name: KARELY Albarran Heather Position: RN - C Member Role: Direct Care Nurse Name: Kenroy Abreu Position: Admissions III-C Name: MD Juana, Cong De Leon Position: Physician - Emerg Med SA Member Role: * Quality Review (1 day after created) Address: Address: [address] [place] [address]
--- OUTSIDE RECORDS SUMMARY | 2024-07-06 17:59 | XMS_ITS | Continuity of Care Document ---
Author Organization [facility] Address [address] [id number] Care Team Providers Care Braiding Operator Name Role Phone UNKNOWN, DOCTOR Primary Care Physician Unavailab le Encounter [facility] [id number] Date(s): 12/10/20 - 12/10/20 [facility] [id number] [id number] Encounter Diagnosis ADHD(Discharge Diagnosis) - 12/10/20 PTSD (post-traumatic stress disorder)(Discharge Diagnosis) - 12/10/20 Discharge Disposition: Home/Routine Attending Physician: ELISABETH GLOVER MD Referring Physician: NONASSIGNED, PHYSICIAN Reason for Visit [facility] Allergies, Adverse Reactions, Alerts No Known Medication Allergies Substance Reaction Severity Status Pork Active Medications amLODIPine 10 Milligram By Mouth ONCE A DAY. amphetamine-dextroamphetamin e (Adderall 30 mg oral tablet) 1 tab(s) By Mouth 2 TIMES A DAY for 3 Days. Refills: 0. Ordering provider: ELISABETH GLOVER MD amphetamine-dextroamphetamin e (Adderall 30 mg oral tablet) 1 tab(s) By Mouth 2 TIMES A DAY. clonazePAM (KlonoPIN 2 mg or al tablet) 1 tab(s) By Mouth 3 TIMES A DAY for 3 Days. Refills: 0. Ordering provider: ELISABETH GLOVER MD Problem List Condition Effective Dates Status Health Status Inform ant HTN (hypertension)(Confirmed) Active Vital Signs 12/10/20 BMI from metric 27.1 Blood Pressure 181/110mmHg Height (cm) 178 cm Dosing Weight (kg) 86.00 kg 1 Pulse 71 BPM O2 Saturation 98 % Respiratory Rate 16 br/min 1Result Comment: Dosing weight (kg) was created by Discern Expert using the Admission weight (kg). Social History Social History Type Response Smoking Status Yes, smoke everyday Sex Male Hospital Discharge Instructions Patient Education 12/10/2020 20:23:41 PTSD (Post-Traumatic Stress Disorder) Post-Traumatic Stress Disorder [...] the numbers for these national suicide hotlines: 9-515-580-TALK ( ) and 6-128-MSDYQMU ( ). If you or someone you [...] Where can you learn more? Go to https://www.[employer].com.net/patientEd Enter X299 in the search box to learn more about Post-Traumatic Stress Disorder (PTSD): Care Instructions. Current as of: August 08, 2020?Content Version: 12.7 ?? Wally. Care instructions adapted under license by your healthcare professional. If you have questions about a medical condition or this instruction, always ask your healthcare professional. [employer] disclaims any warranty or liability for your use of this information. Functional Status 12/10/20 Tested for COVID-19 Yes Does patient have viral resp illness No Direct close contact with COVID-19 No Travel to [place], [place] etc., No
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
--- OUTSIDE RECORDS SUMMARY | 2024-07-06 17:59 | XMS_ITS | Continuity of Care Document ---
Author Organization [facility] Address [address] [place] [address] [id number] Encounter [facility] [id number] Date(s): 03/26/23 - 03/27/[address] [id number] [phone] Encounter Diagnosis HELEN (acute kidney injury)(Discharge Diagnosis) - 03/27/23 Delusional disorder(Discharge Diagnosis) - 03/27/23 Chest pain(Discharge Diagnosis) - 03/27/23 Discharge Disposition: Home or Self Care Attending Physician: MD Lewis, Ninoska Admitting Physician: MD Fady, Ying Allergies, Adverse Reactions, Alerts No Known Medication Allergies Functional Status 03/27/23 History of Fall in Last 3 Months Scales N o Presence of Secondary Diagnosis Scales No Use of Ambulatory Aid Scales None/bedrest /nurse assist IV/Heparin Lock Fall Risk Scales No Gait/Transferring Fall Risk Scales Normal /bedrest/immobile Mental Status Fall Risk Scales Oriented t o own ability Csales Fall Risk Score 0 Scales Fall Risk No Risk 03/26/23 Neurological Symptoms None ADLs Independent Facial Symmetry Symmetric Gait Steady Swallowing Difficulty None Level of Consciousness Neuro Alert, Active Speech Pattern Clear, Rambling Medications Adderall 30 mg oral tablet Start: 12/06/21 18:39:00 EST, 1 tab, PO, bid, Disp# 60 tab, Refills: 0 Start Date: 12/06/21 Stop Date: 01/05/22 Status: Ordered Problem List Condition Confirmation Course Effective Dates Status Health St atus Informant ADHD Confirmed Active Narcolepsy Confirmed Active Diagnosis Diagnosis Type Effective Dates Health Status Clinical Service Informant Chest pain Discharge Diagnosis 03/27/23 Non-Specified HELEN (acute kidney injury) Discharge Diagnosis 03/27/23 Non-Specified Delusional disorder Discharge Diagnosis 03/27/23 Non-Specified Results Laboratory List Name Date Basic Metabolic Panel (BMP) 03/27/23 Complete Blood Count (CBC w Platelets) Troponin T 03/26/23 NT-Pro BNP 03/26/23 Comprehensive Metabolic Panel (CMP) 03/26 Complete Blood Count w Differential (CBC w Platelets and Diff) 03/26/23 Troponin T 03/26/23 Most recent to oldest [Reference Range]: 1 2 eGFR CKD-EPI [>60 mL/min/1.73 m2] 59 mL/ min/1.73 m2 *LOW* (03/27/23 10:44 AM) 47 mL/min/1.73 m2 *LOW* (03/26/23 7:58 PM) BNP, NT-Pro [<125 pg/mL] 135 pg/mL *HI* (03/26/23 7:58 PM) Estimated CrCl 61.97 mL/min (03/27/23 12:45 PM) 51.34 mL/min (03/26/23 9:12 PM) Troponin T [<0.010 ng/mL] <0.010 ng/mL 1 (03/26/23 10:49 PM) <0.010 ng/mL 2 (03/26/23 7:58 PM) Troponin T Delta NOT CALCULATED (03/26/23 10:49 PM) NOT CALCULATED (03/26/23 7:58 PM) MPV [9.0-12.2 fL] 8.5 fL *LOW* (03/27/23 10:44 AM) 8.2 fL *LOW* (03/26/23 7:58 PM) Immature Gran% 0.2 % (03/26/23 7:58 PM) Neut% 69.9 % (03/26/23 7:58 PM) Lymph% 16.7 % (03/26/23 7:58 PM) Spalding% 10.8 % (03/26/23 7:58 PM) Baso% 1.2 % (03/26/23 7:58 PM) Eos% 1.2 % (03/26/23 7:58 PM) Immat Gran, Abs [0-0.4 K/uL] 0.01 K/uL (03/26/23 7:58 PM) Neut, Abs [2.0-7.7 K/uL] 4.64 K/uL (03/26/23 7:58 PM) Lymph, Abs [1.0-3.4 K/uL] 1.11 K/uL (03/26/23 7:58 PM) Spalding, Abs [0-1.0 K/uL] 0.72 K/uL (03/26/23 7:58 PM) Baso, Abs [0-0.1 K/uL] 0.08 K/uL (03/26/23 7:58 PM) Eos, Abs [0-0.5 K/uL] 0.08 K/uL (03/26/23 7:58 PM) Type of Diff: AUTO (03/26/23 7:58 PM) RDW [11.5-14.2 %] 13.3 % (03/27/23 10:44 AM) 13.2 % (03/26/23 7:58 PM) Anion Gap [5-14 mmol/L] 14 mmol/L (03/27/23 10:44 AM) 17 mmol/L *HI* (03/26/23 7:58 PM) Alb [3.5-5.2 g/dL] 4.3 g/dL (03/26/23 7:58 PM) Alk Phos [40-130 unit/L] 109 unit/L (03/26/23 7:58 PM) ALT [0-41 unit/L] 20 unit/L (03/26/23 7:58 PM) AST [0-40 unit/L] 25 unit/L (03/26/23 7:58 PM) BUN [6-23 mg/dL] 21 mg/dL (03/27/23 10:44 AM) 15 mg/dL (03/26/23 7:58 PM) Ca [8.4-10.2 mg/dL] 9.3 mg/dL (03/27/23 10:44 AM) 9.7 mg/dL (03/26/23 7:58 PM) Cl- [98-107 mmol/L] 102 mmol/L (03/27/23 10:44 AM) 98 mmol/L (03/26/23 7:58 PM) HCO3 [22-29 mmol/L] 21 mmol/L *LOW* (03/27/23 10:44 AM) 21 mmol/L *LOW* (03/26/23 7:58 PM) Cret [0.70-1.30 mg/dL] 1.40 mg/dL *HI* (03/27/23 10:44 AM) 1.69 mg/dL *HI* (03/26/23 7:58 PM) Glu [74-109 mg/dL] 131 mg/dL 3 *HI* (03/27/23 10:44 AM) 108 mg/dL 4 (03/26/23 7:58 PM) Hct [39-48 %] 36.3 % *LOW* (03/27/23 10:44 AM) 38.1 % *LOW* (03/26/23 7:58 PM) Hgb [13.0-17.0 g/dL] 12.6 g/dL *LOW* (03/27/23 10:44 AM) 13.2 g/dL (03/26/23 7:58 PM) K [3.5-5.1 mmol/L] 3.6 mmol/L (03/27/23 10:44 AM) 3.4 mmol/L *LOW* (03/26/23 7:58 PM) MCH [28-33 pg] 30.2 pg (03/27/23 10:44 AM) 30.3 pg (03/26/23 7:58 PM) MCHC [32-36 g/dL] 34.7 g/dL (03/27/23 10:44 AM) 34.6 g/dL (03/26/23 7:58 PM) MCV [81-96 fL] 87.1 fL (03/27/23 10:44 AM) 87.4 fL (03/26/23 7:58 PM) Na [136-145 mmol/L] 137 mmol/L (03/27/23 10:44 AM) 136 mmol/L (03/26/23 7:58 PM) Plts [150-350 K/uL] 265 K/uL (03/27/23 10:44 AM) 274 K/uL (03/26/23 7:58 PM) RBC [4.40-5.60 M/uL] 4.17 M/uL *LOW* (03/27/23 10:44 AM) 4.36 M/uL *LOW* (03/26/23 7:58 PM) T Bili [0.0-1.2 mg/dL] 0.5 mg/dL (03/26/23 7:58 PM) Prot [6.4-8.3 g/dL] 7.6 g/dL (03/26/23 7:58 PM) WBC [4.0-10.4 K/uL] 3.90 K/uL *LOW* (03/27/23 10:44 AM) 6.64 K/uL (03/26/23 7:58 PM) 1Result Comment: cTnT >= 0.030 ng/ml: myocardial necrosis present. This may be due to acute myocardial ischemia (AMI) or other myocardial injury. cTnT < 0.010 ng/ml: 99th percentile upper reference limit for ostensibly healthy adult referencepopulation (male and female). 2Result Comment: cTnT >= 0.030 ng/ml: myocardial necrosis present. This may be due to acute myocardial ischemia (AMI) or other myocardial injury. cTnT < 0.010 ng/ml: 99th percentile upper reference limit for ostensibly healthy adult referencepopulation (male and female). 3Result Comment: ADA recommendation for FASTING Serum/Plasma Glucose: Normal: 70-100 mg/dL Prediabetes: 100-125 mg/dL Diabetes: 126 mg/dL or higher 4Result Comment: ADA recommendation for FASTING Serum/Plasma Glucose: Normal: 70-100 mg/dL Prediabetes: 100-125 mg/dL Diabetes: 126 mg/dL or higher Radiology Reports * Exam Date Time Procedure Performing Provider Status 03/27/23 12:18 PM Echo TransTHORacic TTE Limited Chloé Izquierdo; Final Notes: (Echo TransTHORacic TTE Limited) Reason For Exam: chest pain Echo TransTHORacic TTE Limited Report Signatures Finalized by Mark Solorio MD on 03/27/2023 01:04 PM [place] Act 112: No-No further action needed Summary 1. Normal left ventricular size and systolic function with no regional wall motion abnormalities. 2. Estimated ejection fraction 65-70%. 3. No left ventricular hypertrophy. 4. Right ventricular dilation with normal function. 5. Biatrial enlargement. 6. Mild mitral valve regurgitation. 7. Mild tricuspid regurgitation. 8. Insufficient data for estimation of pulmonary artery systolic pressures. Patient Info Name: TEZ AGUILLON Age: 58 years : 1965 Gender: Male Ht: 180 cm Wt: 83 kg BSA: 2.05 m2 HR: 74 bpm BP: 125 / 89 mmHg Heart Rhythm: Sinus Rhythm Technical Quality: Fair Exam Date: 03/27/2023 12:02 PM Exam Location: [address] [place] [address] Patient Status: Outpatient Staff Ordering Physician: Nicole Chamorro Potato Chip Fryer: Chloé Azar RDCS Attending Physician: Ninoska Saucedo Study Info CPT 40671 - 95828 - 16023 - Indications R079 - Chest pain, unspecified Procedure(s) * A limited two-dimensional transthoracic echocardiogram was performed. * Color Doppler was performed. * Limited spectral Doppler was performed. Exam Type: Cardiac Basic Left Ventricle Normal left ventricular size and systolic function with no regional wall motion abnormalities. Estimated ejection fraction 65-70%. No left ventricular hypertrophy. Inconclusive data to evaluate diastolic function. Right Ventricle Right ventricular dilation with normal function. Left Atrium Severely dilated left atrium size. Right Atrium Right atrial dilation. Aortic Valve Sclerotic trileaflet aortic valve without significant stenosis or regurgitation. Pulmonic Valve Unremarkable pulmonic valve. Mitral Valve Mitral annular calcification. Mild mitral valve regurgitation. Tricuspid Valve Mild tricuspid regurgitation. Pericardium/Pleural No significant pericardial effusion. Inferior Vena Cava Normal IVC size and inspiratory collapse. Estimated right atrial pressure is 3 mmHg. Aorta Normal aortic root. Left Ventricular Outflow Tract Name Value Normal LVOT 2D LVOT Diameter 2.1 cm Mitral Valve Name Value Normal MV Doppler MV PHT 98 ms MV Diastolic Function MV E Peak Velocity 0.48 m/s <=0.50 MV A Peak Velocity 0.68 m/s MV E/A 0.70 <=0.80 MV Decel Time 338 ms MV Annular TDI MV Septal s' Velocity 10.40 cm/s MV Septal e' Velocity 7.46 cm/s >=7.00 MV E/e' (Septal) 6.4 <=8.0 MV Lateral s' Velocity 9.32 cm/s MV Lateral e' Velocity 8.86 cm/s >=10.00 MV E/e' (Lateral) 5.42 <=8.00 MV e' Average 8.16 MV E/e' (Average) 5.93 <=14.00 Tricuspid Valve Name Value Normal Estimated PAP/RSVP RA Pressure 3 mmHg <=5 TV Annular TDI TV Lateral Hedy s' Velocity 14.6 cm/s 9.5-18.7 TV Lateral Hedy e' Velocity 9.5 cm/s <7.8 Aorta Name Value Normal Ascending Aorta Sinus of Valsalva Diameter 3.7 cm 3.1-3.7 Sinus of Valsalva Index 1.79 cm/m2 1.50-1.90 Venous Name Value Normal IVC/SVC IVC Diameter (Insp 2D) 0.3 cm IVC Diameter (Exp 2D) 1.9 cm <=2.1 IVC Diameter Percent Change (2D) 82 % >=50 Aortic Valve Name Value Normal AV Regurgitation 2D LVOT Area 3.5 cm2 Ventricles Name Value Normal LV Dimensions 2D/MM IVS Diastolic Thickness (2D) 0.9 cm 0.6-1.0 LVID Diastole (2D) 4.9 cm 3.6-5.6 LVIW Diastolic Thickness (2D) 0.8 cm 0.6-1.0 LVID Systole (2D) 3.2 cm 2.5-4.0 LVOT Diameter 2.1 cm LV Mass (2D Cubed) 138.85 g 88.00-224.00 LV Mass Index (2D Cubed) 0.01 g/cm2 0.00-0.01 Relative Wall Thickness (2D) 0.31 LV Fractional Shortening/Ejection Fraction 2D/MM LV Fractional Shortening (2D) 34 % 25-43 RV Dimensions 2D/MM RV Basal Diastolic Dimension 5.1 cm 2.5-4.1 RV Mid-Cavity Diastolic Dimension 3.2 cm 1.9-3.5 Atria Name Value Normal LA Dimensions LA Area (4C) 23.1 cm2 LA Length (4C) 5.1 cm LA Area (2C) 27.9 cm2 LA Length (2C) 6.4 cm LA Volume (4C A-L) 89.36 ml LA Volume (2C A-L) 102.49 ml LA Volume (BP A-L) 108 ml 18-58 LA Volume Index (BP A-L) 52.69 ml/m2 <=34.00 RA Dimensions RA Area (4C) 23.0 cm2 <=18.0 Final Signed by:MD Solorio Michael Signed (Electronic Signature):03/27/2023 12:02 * Exam Date Time Procedure Performing Provider Status 03/27/23 3:[address] Angio Chest Cristy Lund; Modified Notes: (CT Angio Chest) Reason For Exam: chest pain, hypertensive; r/o aortic pathology CT Angio Chest EXAMINATION: CHEST CT ANGIOGRAM CLINICAL HISTORY: chest pain, hypertensive; r/o aortic pathology COMPARISON: Chest radiograph dated 03/26/2023. TECHNIQUE: Non contrast CT of the chest followed by high pitch helical ECG gated CT scan through the chest after intravenous contrast administration. Data reconstructed as axial, sagittal, and coronal slices. Volume rendered and maximum intensity projection images were obtained and interpreted at a separate 3-D workstation. CONTRAST: Contrast Type (IV): Omnipaque 350 Contrast Volume (IV) in ml: 100.00 DOSE: Total Reported Dose Length Product (DLP) = 454.20 mGy.cm FINDINGS: Aorta: Three vessel left aortic arch (close origin of the brachiocephalic and left common carotid arteries). Mild calcified and noncalcified atherosclerosis. Aortic measurements at the following levels are Annulus: 31 mm Sinuses of Valsalva: 39 mm Sinotubular junction: 28 mm Maximum ascending diameter: 42 mm Arch proximal to the left subclavian artery: 31 mm Maximum descending diameter: 34 mm Pleura and Lungs: No concerning pulmonary nodules. Scattered sub-4 mm pulmonary nodules, largest inthe right lower lobe (axial 62); no dedicated follow-up is indicated on the basis of size. No pleural effusion or pneumothorax. Central airways: No endobronchial abnormality. Lymph nodes: Normal Thyroid and Mediastinum: Normal Heart and Great vessels: Normal-size heart with moderate coronary arterial atherosclerosis. No pericardial effusion. Mild enlargement of the pulmonary arteries. Upper abdomen: Normal Chest wall: Degenerative bony changes. No acute fractures. Anterolisthesis of C7 on T1, incompletely evaluated. Unremarkable body wall. IMPRESSION: 1. No acute aortic syndrome or other significant acute abnormality in the chest. 2. Mild ectasia of the ascending aorta. 3. Enlargement of the pulmonary arteries which can be seen with pulmonary hypertension. [place] Act 112: This study does not meet the requirements of [place] Act 112. Dr. Jhonny Perez is the dictating resident. Finalized reports status indicates that the attendinghas reviewed the images and report, and agrees with the interpretation. Preliminary report status should be regarded as NOT interpreted by the attending radiologist. Workstation ID: [id number] Final Dictated by:MD Perez Tyler S Dictated DT/TM:03/27/2023 4:46 Resident:MD Perez Tyler S Signed by:MD Cruz Sparsh Signed (Electronic Signature):03/27/2023 4:45 a * Exam Date Time Procedure Performing Provider Status 03/26/23 8:10 PM XR Chest 1 View Sara Fowler; Fozia hu Notes: (XR Chest 1 View) Reason For Exam: chest pain XR Chest 1 View EXAMINATION: XR Chest 1 View CLINICAL HISTORY: chest pain COMPARISON: None FINDINGS: Single image of the chest. Normal cardiomediastinal silhouette. Enlarged bilateral pulmonary arteries. Bibasilar atelectasis. Prominence in the right paratracheal region and left upper lobe, cannot exclude nodular/mass lesions. No pneumothorax or pleural effusion. No acute osseous or soft tissue abnormality. IMPRESSION: 1. No acute cardiopulmonary process. 2. Enlarged bilateral pulmonary arteries, which can be seen in pulmonary hypertension. 3. Prominence in the right paratracheal region and left upper lobe, cannot exclude nodular lesions vs prominence of the 1st ribs. Suggest dedicated PA films. Dr. Warner Mcgraw is the dictating resident. Finalized reports status indicates that the attending has reviewed the images and report, and agrees with the interpretation. Preliminary report status should be regarded as NOT interpreted by the attending radiologist. Workstation ID: [id number] Final Dictated by:MD Mcgraw Joseph H Dictated DT/TM:03/26/2023 8:19 Resident:MD Mcgraw Joseph H Signed by:MD Carroll Jonelle M Signed (Electronic Signature):03/26/2023 8:18 p Vital Signs Most recent to oldest [Reference Range]: 1 2 3 Height 180.3 cm (03/26/23 7:46 PM) Patient Weight 83.2 kg (03/26/23 7:38 PM) Temperature [36.5-37.9 DegC] 36.8 DegC (03/27/23 1:53 PM) 37.4 DegC (03/26/23 8:00 PM) Heart Rate 86 bpm (03/27/23 1:53 PM) 59 bpm (03/27/23 6:00 AM) 66 bpm (03/26/23 10:00 PM) Respiratory Rate 18 br/min (03/27/23 1:53 PM) 20 br/min (03/27/23 6:00 AM) 22 br/min (03/26/23 10:00 PM) Blood Pressure 175/87mmHg (03/27/23 1:53 PM) 125/89mmHg (03/27/23 6:00 AM) 144/91mmHg (03/26/23 10:00 PM) Mean Blood Pressure 101 mmHg (03/27/23 1:53 PM) 101 mmHg (03/27/23 6:00 AM) 105 mmHg (03/26/23 10:00 PM) Cuff Pulse Pressure 88 mmHg (03/27/23 1:53 PM) 36 mmHg (03/27/23 6:00 AM) 53 mmHg (03/26/23 10:00 PM) BP Location # 1 Left Arm (03/27/23 1:53 PM) Left Arm (03/27/23 6:00 AM) Left Arm (03/26/23 9:00 PM) Social History Social History Type Response Smoking Status Never smoked cigaret andrea Sex .D/C Summary * LUCINDA Chamorro Dana E: PERFORM Event Display: .D/C Summary Authored Date: [id number] [facility] ?? For medical concerns, call: . Address:?? [address] [place], [place] [id number] Phone:?? :??1965 . Date of Admission:??03/26/2023 Date of Discharge:??03/27/2023 Physician:??MD Lewis, Ninoska Service:??Internal Medicine Discharge Disposition:??Home or Self Care ?? Principal Diagnosis: Chest pain Other Diagnoses: HELEN (acute kidney injury) Delusional disorder Major Tests and Procedures: (03/26/2023 20:10 EDT XR Chest 1 View) IMPRESSION: 1. ??No acute cardiopulmonary process. 2. ??Enlarged bilateral pulmonary arteries, which can be seen in pulmonary hypertension. 3. ??Prominence in the right paratracheal region and left upper lobe, cannot exclude nodular lesions vs prominence of the 1st ribs. Suggest dedicated PA films. ?? [1] ?? (03/27/2023 03:[address] Angio Chest) ?? IMPRESSION: 1. ??No acute aortic syndrome or other significant acute abnormality in the chest. 2. ??Mild ectasia of the ascending aorta. 3. ??Enlargement of the pulmonary arteries which can be seen with pulmonary hypertension. ?? [2] ?? (03/27/2023 12:18 EDT Echo TransTHORacic TTE Limited) Summary ?1. Normal left ventricular size and systolic function with no regional wall motion abnormalities. ?2. Estimated ejection fraction 65-70%. ?3. No left ventricular hypertrophy. ?4. Right ventricular dilation with normal function. ?5. Biatrial enlargement. ?6. Mild mitral valve regurgitation. ?7. Mild tricuspid regurgitation. ?8. Insufficient data for estimation of pulmonary artery systolic pressures. ? [3] [1] Hospital Course: Tez is a 58 y/o M with PMHx of PTSD, ADHD, narcolepsy who presented to the ED with complaints of chest pain.?? In the ED his labs were notable for K 3.4, HCO2 31, gap 17, Cr 1.69, BNP 135 and troponins were negative x2.?? An EKG was completed without ST or T wave changes. A CTA was completed that revealed enlargement of??pulmonary arteries however no acute abnormalities.?? He was hemodynamically stable and afebrile.?? He was admitted for ongoing evaluation and work up of possible HELEN. ?? Chest Pain Initial testing was completed as per above. A TTE was also completed that revealed normal LV size and systolic function with EF 65-70%, biatrial enlargement, no LVH, mild MVR and mild TR.? Possible HELEN His Cr baseline is unclear.?? He received an IV bolus in the ED however refused further IV fluid administration.?? His repeat Cr was 1.4.? Of note, psychiatry was also consulted given his intermittent paranoid delusions and possible flight of ideas.?? He largely refused to answer their questions which was similar in presentation to his interaction with the IM team.?? They felt he is not of risk to self and others, nor did he require psychiatric hospitalization.?? On 03/27 Tez requested discharge.??He was able to recall the details of his work-up??and suspected non cardiac in nature origin of discomfort.??Given that his cardiac workup was negative and he refused further IV fluid administration in the setting of unknown Cr baseline, he was discharged.?? He would not provide details regarding his social support, living arrangements or outpatient medical provider.?? He refused to speak to SW and declined the need for cab voucher at discharge.?? He is encouraged to follow up with his outpatient provider. Exam on Discharge: Vitals & Measurements: T:??36.8?C?? HR:??86??(Monitored)?? RR:??18?? BP:??175/87?? SpO2:??100%?? Oxygen Therapy:??Room air?General:?Alert, in no acute distress.?HEENT:?Head normocephalic, atraumatic. Sclera anicteric. ??MMM.?Neck:?No JVD.?Cardiac:?RRR. ??No murmurs, rubs or gallops.?Lungs:?CTAB. ??No accessory muscle use.?Abdomen:?Normoactive bowel sounds. ??Soft, non-tender.?Rectal:?Deferred ??:?Voiding spontaneously.?Back:?Deferred ??Extremities:?BEAVER x4 . No edema.?Neuro:?Awake, alert. ??Oriented to person, place, reason for admission.?Skin:?[place], warm, dry.?? Discharge Medications: 1.Amphetamine-dextroamphetamine (Adderall 30 mg oral tablet) 30 mg (1 tab) by mouth 2 times daily. Allergies and Sensitivities: No Known Medication Allergies Tests Pending: None Other Appointments: Follow Up with??Follow up with primary care provider When:??Within 5 to 7 days Why: Call your doctor to make an appointment Discharge Services: ? No Post-Acute Placement(s) Listed ? No Post-Acute Service(s) Listed ?? Care Instructions: Follow-Up Appointments: ?? Keep all your follow up appointments as already scheduled. Please call to schedule a follow-up with your primary care provider within 1 week of discharge. ?? Medications: Please review your medications and ask your physician if you have any questions.?? Your medication list has been reviewed and reconciled upon discharge to ensure accuracy and continuity of care.?? You are provided with a list of all your current medications at this time. Please review closely and make note of any changes. Take all of your medications exactly as prescribed.?? Tell your primary care provider if you cannot afford your medications.?? Call your primary care provider if you are having any side effects or any other problems.?? Call your primary care provider before taking any over the counter medications or supplements, including herbals and vitamins, because some of these may interact with your current medications and/or make your symptoms worse.? We have not intentionally changed any of your home medications.?? Resume at previous doses. ?? Activity: Resume your normal activities as tolerated. ??Always use fall precautions and resume activities slowly as you were just hospitalized and you may need continued recovery time. Physical activity is an important component of a healthy lifestyle.??When going from lying down or sitting down to standing up, go slow to allow your body to adjust and pause if you feel lightheaded or dizzy.? . Advance Directive:??None I personally spent??40 minutes in discharge planning. [1]??Patient Discharge Instructions; LUCINDA Chamorro Dana E 03/27/2023 15:49 EDT [2]??Medicine Inpt Progress Note; LUCINDA Chamorro Dana E 03/27/2023 11:10 EDT Electronic Signature on File Electronically Reviewed/Signed by: LUCINDA Garcia Author Signature Dt/Tm:03/28/2023 01:45 PM Division of Internal Medicine - Hospitalist NATHALIE Discharge instructions * LUCINDA Chamorro Dana E: PERFORM Event Display: Patient Discharge Instructions Authored Date: [id number] TEZ AGUILLON :1965 Visit Date:03/26/2023 Patient Discharge Instructions [facility] ?? For medical concerns, call: . Date of Admission:??03/26/2023 Date of Discharge:??03/27/2023 Physician:??MD Saucedo Ananya Service:??Internal Medicine Discharge Disposition:? . Advance Directive:??None Reason for Hospitalization Chest pain Your Diagnoses Chest pain HELEN (acute kidney injury) Delusional disorder ?? My [employer] Patient Portal: [facility] [employer] makes it easy for you to manage your health information online. My [facility] [employer] is a free service that provides you instant, secure access to your medical information anytime, anywhere. Sign in or set up your account today at [facility] Thank you for allowing us to assist you with your healthcare needs. Medications What How Much When Instructions Next Dose Unchanged amphetamine- dextroamphetamine (Adderall 30 mg oral tablet) 1 tab(s) by mouth 2 times daily Duration: 30 Days ? Allergies No Known Medication Allergies What to do next Instructions From Your Doctor Follow-Up Appointments: ?? Keep all your follow up appointments as already scheduled. Please call to schedule a follow-up with your primary care provider within 1 week of discharge. ?? Medications: Please review your medications and ask your physician if you have any questions.?? Your medication list has been reviewed and reconciled upon discharge to ensure accuracy and continuity of care.?? You are provided with a list of all your current medications at this time. Please review closely and make note of any changes. Take all of your medications exactly as prescribed.?? Tell your primary care provider if you cannot afford your medications.?? Call your primary care provider if you are having any side effects or any other problems.?? Call your primary care provider before taking any over the counter medications or supplements, including herbals and vitamins, because some of these may interact with your current medications and/or make your symptoms worse.? We have not intentionally changed any of your home medications.?? Resume at previous doses. ?? Activity: Resume your normal activities as tolerated. ??Always use fall precautions and resume activities slowly as you were just hospitalized and you may need continued recovery time. Physical activity is an important component of a healthy lifestyle.??When going from lying down or sitting down to standing up, go slow to allow your body to adjust and pause if you feel lightheaded or dizzy.? If you notice the following symptoms Please call your PCP if??you have any questions or concerns or if experiencing any of the following, including but not limited to: worsening in any of your symptoms, chest pain, palpitations, shortness of breath, fever, chills, nausea, vomiting, diarrhea, unrelieved constipation, trouble swallowingor chewing your food, bleeding from any part of your body, uncontrolled pain, increasing weakness, altered mental status, rash/hives, feeling like you want to hurt or kill yourself. ?? Contact our Careline at . ?? If unable to contact your physician and you feel it is an emergency, go to the nearest Emergency Room or call 911 Diet Instructions Per home diet. Activity Instructions Per home activity. Follow-Up Appointments You Need to Schedule the Following Appointments Follow Up with??Follow up with primary care provider When:??Within 5 to 7 days Why: Call your doctor to make an appointment The Following Services Have Been Arranged for You ? No Post-Acute Placement(s) Listed ? No Post-Acute Service(s) Listed ?? Test Results (03/26/2023 20:10 EDT XR Chest 1 View) IMPRESSION: 1. ??No acute cardiopulmonary process. 2. ??Enlarged bilateral pulmonary arteries, which can be seen in pulmonary hypertension. 3. ??Prominence in the right paratracheal region and left upper lobe, cannot exclude nodular lesions vs prominence of the 1st ribs. Suggest dedicated PA films. ?? [1] ?? (03/27/2023 03:[address] Angio Chest) ?? IMPRESSION: 1. ??No acute aortic syndrome or other significant acute abnormality in the chest. 2. ??Mild ectasia of the ascending aorta. 3. ??Enlargement of the pulmonary arteries which can be seen with pulmonary hypertension. ?? [2] ?? (03/27/2023 12:18 EDT Echo TransTHORacic TTE Limited) Summary ?1. Normal left ventricular size and systolic function with no regional wall motion abnormalities. ?2. Estimated ejection fraction 65-70%. ?3. No left ventricular hypertrophy. ?4. Right ventricular dilation with normal function. ?5. Biatrial enlargement. ?6. Mild mitral valve regurgitation. ?7. Mild tricuspid regurgitation. ?8. Insufficient data for estimation of pulmonary artery systolic pressures. ? [3] Tests Pending None Special Instructions Common Emergency Awareness Tips Call 911 immediately if: experiencing any of the warning signs and symptoms of stroke: ?? B.E. F.A.S.T. ?? Balance: is there trouble with walking or coordination Eyes: is there double vision or visual loss ?? Face: Smile, do both sides of face move equally Arm: Raise arms, do both arms move equally Speech: Is speech slurred or inappropriate Time: Time is critical, call 911 immediately ?? Heart Attack Signs ?? Chest discomfort: Most heart attacks involve discomfort in the center of the chest and lasts more than a few minutes, or goes away and comes back. It can feel like uncomfortable pressure, squeezing, fullness or pain. Discomfort in upper body: Symptoms can include pain or discomfort in one or both arms, back, neck, jaw or stomach. Shortness of breath: With or without discomfort. Other signs: Breaking out in a cold sweat, nausea, or lightheaded. Remember, MINUTES DO MATTER. If you experience any of these heart attack warning signs, call to get immediate medical attention! ?? Education Materials Nonspecific Chest Pain, Adult Chest pain is an uncomfortable, tight, or painful feeling in the chest. The pain can feel like a crushing, aching, or squeezing pressure. A person can feel a burning or tingling sensation. Chest paincan also be felt in your back, neck, jaw, shoulder, or arm. This pain can be worse when you move, sneeze, or take a deep breath. Chest pain can be caused by a condition that is life-threatening. This must be treated right away. It can also be caused by something that is not life- threatening. If you have chest pain, it can be hard to know the difference, so it is important to get help right away to make sure that you do not have a serious condition. Some life-threatening causes of chest pain include: ? Heart attack. ? A tear in the body's main blood vessel (aortic dissection). ? Inflammation around your heart (pericarditis). ? A problem in the lungs, such as a blood clot (pulmonary embolism) or a collapsed lung (pneumothorax). Some non life-threatening causes of chest pain include: ? Heartburn. ? Anxiety or stress. ? Damage to the bones, muscles, and cartilage that make up your chest wall. ? Pneumonia or bronchitis. ? Shingles infection (varicella-zoster virus). Your chest pain may come and go. It may also be constant. Your health care provider will do tests and other studies to find the cause of your pain. Treatment will depend on the cause of your chest pain. Follow these instructions at home: Medicines ? Take dvjp-fjr-jalthzb and prescription medicines only as told by your health care provider. ? If you were prescribed an antibiotic medicine, take it as told by your health care provider. Do notstop taking the antibiotic even if you start to feel better. Activity ? Avoid any activities that cause chest pain. ? Do not lift anything that is heavier than 10 lb (4.5 kg), or the limit that you are told, until your health care provider says that it is safe. ? Rest as directed by your health care provider. ? Return to your normal activities only as told by your health care provider. Ask your health care provider what activities are safe for you. Lifestyle ? Do not use any products that contain nicotine or tobacco, such as cigarettes, e- cigarettes, and chewing tobacco. If you need help quitting, ask your health care provider. ? Do not drink alcohol. ? Make healthy lifestyle changes as recommended. These may include: ? Getting regular exercise. Ask your health care provider to suggest some exercises that are safe foryou. ? Eating a heart-healthy diet. This includes plenty of fresh fruits and vegetables, whole grains, low-fat (lean) protein, and low-fat dairy products. A dietitian can help you find healthy eating options. ? Maintaining a healthy weight. ? Managing any other health conditions you may have, such as high blood pressure (hypertension) or diabetes. ? Reducing stress, such as with yoga or relaxation techniques. General instructions ? Pay attention to any changes in your symptoms. ? It is up to you to get the results of any tests that were done. Ask your health care provider, or the department that is doing the tests, when your results will be ready. ? Keep all follow-up visits as told by your health care provider. This is important. ? You may be asked to go for further testing if your chest pain does not go away. Contact a health care provider if: ? Your chest pain does not go away. ? You feel depressed. ? You have a fever. ? You notice changes in your symptoms or develop new symptoms. Get help right away if: ? Your chest pain gets worse. ? You have a cough that gets worse, or you cough up blood. ? You have severe pain in your abdomen. ? You faint. ? You have sudden, unexplained chest discomfort. ? You have sudden, unexplained discomfort in your arms, back, neck, or jaw. ? You have shortness of breath at any time. ? You suddenly start to sweat, or your skin gets clammy. ? You feel nausea or you vomit. ? You suddenly feel lightheaded or dizzy. ? You have severe weakness, or unexplained weakness or fatigue. ? Your heart begins to beat quickly, or it feels like it is skipping beats. These symptoms may represent a serious problem that is an emergency. Do not wait to see if the symptoms will go away. Get medical help right away. Call your local emergency services (911 in the [place] Do not drive yourself to the hospital. Summary ? Chest pain can be caused by a condition that is serious and requires urgent treatment. It may also be caused by something that is not life-threatening. ? Your health care provider may do lab tests and other studies to find the cause of your pain. ? Follow your health care provider's instructions on taking medicines, making lifestyle changes, and getting emergency treatment if symptoms become worse. ? Keep all follow-up visits as told by your health care provider. This includes visits for any further testing if your chest pain does not go away. This information is not intended to replace advice given to you by your health care provider. Make sure you discuss any questions you have with your health care provider. Document Revised: 01/16/2022 Document Reviewed: 01/16/2022 Elsevier Patient Education ?? 2021 [employer] [1]??XR Chest 1 View; MD Glen, Danielle Garcia 03/26/2023 20:10 EDT [2]??CT Angio Chest; MD Nancy, [facility] 03/27/2023 03:15 EDT [3]??Echo TransTHORacic TTE Limited; MD Lyndsey, Mark 03/27/2023 12:18 EDT History and physical note * MD Fady, Stepan: PERFORM Event Display: H&P Authored Date: [id number] HISTORY AND PHYSICAL Name: TEZ AGUILLON Patient Number: [id number] : 1965 Date of Service: 03/27/2023 Surgical Hospital Day/Procedure: No procedures found Chief Complaint: _ Chest pain History of Present Illness: _ Mr. Aguillon is 58 years old man with past medical history of PTSD, ADHD, narcolepsy and tobaccoabuse disorder who presented to the emergency department on account of acute onset of chest pain ataround 6 PM yesterday. He describes his chest pain as if his heart is pushed against his back. Painis constant, nonradiating, 8 out of 10, no identifiable trigger, alleviating, aggravating factors. It is not associated with nausea, palpitations, diaphoresis, shortness of breath at rest or exertion. It has no relationship with food or activity. While patient was in the emergency department he reported that he has testified against [employer] agents to an honorable charge who were doing some bad things . As a result the whole system has been harassing him including the police. He is a and this chest pain is a result of the burden of going against the carotid system. He has been praying to Boo and reading scriptures which has been helpful to relieve his pain. Emergency department reported that patient's pain did not respond to nitroglycerin sublingually x3. He was reportedly somewhat agitated earlier in the emergency department but later calmed down and has been resting comfortably in the bed for hours when I saw him He denies change in urinary frequency, dysuria, nausea, vomiting, diarrhea, constipation, palpitations, weight changes, pedal edema, abdominal pain, change in mental status, hallucinations, visual disturbances. Review Of Systems: _ 14 point ROS is otherwise negative except what is mention in HPI/Above Past Medical History: _ Narcolepsy, ADHD, PTSD Procedure History Procedure Procedure Date Comments None Surgical History: _ Family History: _ Reviewed and is noncontributory to current issues Social History: _ Smokes 1 packs of cigarettes per day. Denies illicit drug or alcohol abuse. He is homeless Allergies and Sensitivities: No Known Medication Allergies Current Home Meds: (Last Updated 12/06 22:27) amphetamine-dextroamphetamine (Adderall 30 mg oral tablet) 30 mg PO bid ibuprofen (Motrin) Vitals: Last Updated 03/27/23 06:00 Weights: Last Updated 03/26/23 19:38 Date Temp Pulse BP RR SpO2 FIO2 Date Wt(kg) Wt(lb) 03/27 06:00 59 125/89 20 100 RA 03/26 19:38 83.2 183 03/26 22:00 66 144/91 22 98 RA 03/26 19:38 83.2 183 03/26 21:00 69 146/110 16 92 RA 03/26 20:00 37.4 73 180/120 22 98 RA 03/26 19:38 66 181/109 20 97 RA 24 Hr Tmax: 37.4 at 03/26 20:00 Initial Wt: 03/26 83.2 kg 183 lb Physical Exam: General: _ No acute distress HEENT: _ NC/AT head. EOMI Neck: _ supple Cardiac: _ RRR, S1+ S2 + 0, No M/R/Gs Lungs: _NVB, CTA x bl, no wheeze, rhonchi or rales, Abdomen _ soft, NT/ND, NABS. no organomegaly appreciated : _ no supra pubic tenderness Back: _ non tender to palpation Extremities: _ no pedal edema, cyanosis or clubbing Neuro: _ AAO x 3, No FNDs Skin: _ intact, no rash Psychiatric: Has some ideas of reference, seems to be delusional. Not suicidal or agitated. Lymphatic:: No palpable lymph nodes in neck or axilla. Musculoskeletal: Left big toe has prominent bony protuberance on the ventral surface. Patient reported that he had trauma to that toe in the past. No erythema or evidence of infection. No differential warmth Most Recent 24 Hour CBC/BMP Results CBC: on 03/26/2023 19:58 CMP: on 03/26/2023 19:58 ? 13.2 ??? 136 ??? 98 ??? 15 ? 6.6 ? 274 ? 108 ? 38.1 ??? 3.4 ??? 21 ??? 1.69 ? Abs Neut = 4.6 Ca = 9.7 Most Recent 24 Hour Labs: 03/26/239 Troponin T <0.010 Troponin T Delta See Flowsheet 03/26/232 Estimated CrCl 51.34 03/26/231957 MCH 30.3 MCHC 34.6 MCV 87.4 RBC 4.36 L MPV 8.2 L Immature Gran% 0.2 Neut% 69.9 Lymph% 16.7 Spalding% 10.8 Baso% 1.2 Eos% 1.2 Immat Gran, Abs 0.01 Lymph, Abs 1.11 Spalding, Abs 0.72 Baso, Abs 0.08 Eos, Abs 0.08 Type of Diff: See Flowsheet RDW 13.2 BNP, NT-Pro 135 H Anion Gap 17 H eGFR CKD-EPI 47 L Alk Phos 109 ALT 20 AST 25 T Bili 0.5 Alb 4.3 Prot 7.6 Studies: Pending or Completed in the Last [address] Angio Chest Completed XR Chest 1 View Completed EKG (ED) Completed EKG (ED) Completed EKG (ED) Completed Was directly visualized shows normal sinus rhythm, meets criteria for LVH by voltage. QTc 440, QRS duration 90, AZ interval 164 ASSESSMENT: _ 58-year-old man with atypical chest pain with no obvious etiology. EKG does show evidence of LVH byvoltage criteria. Troponins are negative x2. Patient seems to be delusional. Perhaps has some undiagnosed mental health disorder versus acute psychosis. Has elevated creatinine from his baseline which meets the criteria for acute kidney injury stage II. No history to suggest volume loss. Denies obst ructive symptoms. Impression Atypical chest pain Acute kidney injury stage II Delusional disorder versus acute psychosis? PLAN: _ Atypical chest pain Troponins are negative x2 Pain is nonreproducible and hence does not appear to be musculoskeletal CT angiogram of chest is unremarkable No EKG changes to suggest pericarditis. Can consider limited transthoracic cardiogram to look for structural heart disease Stop trending troponin Acute kidney injury stage II Bladder scan x1 IV hydration UA Repeat BMP after hydration Delusional disorder versus acute psychosis? Was reportedly somewhat agitated earlier in the emergency department Not sure what is patient's baseline mental status Consider evaluation by psychiatry traffic worker for discharge planning Behavioral observation until cleared by psychiatry Chronic comorbidities ADHD: Continue Adderall as per home meds Code status: Full code DVT prophylaxis: Heparin 5000 units q8h with monitoring for platelet count and injection site. Diet: Regular adult diet Discussed management plan with the patient at the bedside. Explained effects and side effects of the meds. Informed about results of diagnostic work up mentioned above. Patient agrees with the management plan Electronic Signature on File Electronically Reviewed/Signed by: Stepan Shrestha MD Author Signature Dt/Tm:03/27/2023 07:29 AM Division of Internal Medicine - Hospitalist EVON EKG * Contributor_system, [id number]: VERIFY, PERFORM Event Display: EKG Authored Date: [id number] Please click on link to see image. * Contributor_system, [id number]: VERIFY, PERFORM Event Display: EKG Authored Date: [id number] Please click on link to see image. * Contributor_system, [id number]: VERIFY, PERFORM Event Display: EKG Authored Date: [id number] Please click on link to see image. US Heart Transthoracic * MD Lyndsey, Mark: VERIFY, PERFORM, VERIFY Event Display: Report Authored Date: [id number] Report Signatures Finalized by Mark Solorio MD on 03/27/2023 01:04 PM [place] Act 112: No-No further action needed Summary 1. Normal left ventricular size and systolic function with no regional wall motion abnormalities. 2. Estimated ejection fraction 65-70%. 3. No left ventricular hypertrophy. 4. Right ventricular dilation with normal function. 5. Biatrial enlargement. 6. Mild mitral valve regurgitation. 7. Mild tricuspid regurgitation. 8. Insufficient data for estimation of pulmonary artery systolic pressures. Patient Info Name: TEZ AGUILLON Age: 58 years : 1965 Gender: Male Ht: 180 cm Wt: 83 kg BSA: 2.05 m2 HR: 74 bpm BP: 125 / 89 mmHg Heart Rhythm: Sinus Rhythm Technical Quality: Fair Exam Date: 03/27/2023 12:02 PM Exam Location: [address] [place] [address] Patient Status: Outpatient Staff Ordering Physician: Nicole Chamorro Potato Chip Fryer: Chloé Azar RDCS Attending Physician: Ninoska Saucedo Study Info CPT 33014 - [id number] - 35851 - Indications R079 - Chest pain, unspecified Procedure(s) * A limited two-dimensional transthoracic echocardiogram was performed. * Color Doppler was performed. * Limited spectral Doppler was performed. Exam Type: Cardiac Basic Left Ventricle Normal left ventricular size and systolic function with no regional wall motion abnormalities. Estimated ejection fraction 65-70%. No left ventricular hypertrophy. Inconclusive data to evaluate diastolic function. Right Ventricle Right ventricular dilation with normal function. Left Atrium Severely dilated left atrium size. Right Atrium Right atrial dilation. Aortic Valve Sclerotic trileaflet aortic valve without significant stenosis or regurgitation. Pulmonic Valve Unremarkable pulmonic valve. Mitral Valve Mitral annular calcification. Mild mitral valve regurgitation. Tricuspid Valve Mild tricuspid regurgitation. Pericardium/Pleural No significant pericardial effusion. Inferior Vena Cava Normal IVC size and inspiratory collapse. Estimated right atrial pressure is 3 mmHg. Aorta Normal aortic root. Left Ventricular Outflow Tract Name Value Normal LVOT 2D LVOT Diameter 2.1 cm Mitral Valve Name Value Normal MV Doppler MV PHT 98 ms MV Diastolic Function MV E Peak Velocity 0.48 m/s <=0.50 MV A Peak Velocity 0.68 m/s MV E/A 0.70 <=0.80 MV Decel Time 338 ms MV Annular TDI MV Septal s' Velocity 10.40 cm/s MV Septal e' Velocity 7.46 cm/s >=7.00 MV E/e' (Septal) 6.4 <=8.0 MV Lateral s' Velocity 9.32 cm/s MV Lateral e' Velocity 8.86 cm/s >=10.00 MV E/e' (Lateral) 5.42 <=8.00 MV e' Average 8.16 MV E/e' (Average) 5.93 <=14.00 Tricuspid Valve Name Value Normal Estimated PAP/RSVP RA Pressure 3 mmHg <=5 TV Annular TDI TV Lateral Hedy s' Velocity 14.6 cm/s 9.5-18.7 TV Lateral Hedy e' Velocity 9.5 cm/s <7.8 Aorta Name Value Normal Ascending Aorta Sinus of Valsalva Diameter 3.7 cm 3.1-3.7 Sinus of Valsalva Index 1.79 cm/m2 1.50-1.90 Venous Name Value Normal IVC/SVC IVC Diameter (Insp 2D) 0.3 cm IVC Diameter (Exp 2D) 1.9 cm <=2.1 IVC Diameter Percent Change (2D) 82 % >=50 Aortic Valve Name Value Normal AV Regurgitation 2D LVOT Area 3.5 cm2 Ventricles Name Value Normal LV Dimensions 2D/MM IVS Diastolic Thickness (2D) 0.9 cm 0.6-1.0 LVID Diastole (2D) 4.9 cm 3.6-5.6 LVIW Diastolic Thickness (2D) 0.8 cm 0.6-1.0 LVID Systole (2D) 3.2 cm 2.5-4.0 LVOT Diameter 2.1 cm LV Mass (2D Cubed) 138.85 g 88.00-224.00 LV Mass Index (2D Cubed) 0.01 g/cm2 0.00-0.01 Relative Wall Thickness (2D) 0.31 LV Fractional Shortening/Ejection Fraction 2D/MM LV Fractional Shortening (2D) 34 % 25-43 RV Dimensions 2D/MM RV Basal Diastolic Dimension 5.1 cm 2.5-4.1 RV Mid-Cavity Diastolic Dimension 3.2 cm 1.9-3.5 Atria Name Value Normal LA Dimensions LA Area (4C) 23.1 cm2 LA Length (4C) 5.1 cm LA Area (2C) 27.9 cm2 LA Length (2C) 6.4 cm LA Volume (4C A-L) 89.36 ml LA Volume (2C A-L) 102.49 ml LA Volume (BP A-L) 108 ml 18-58 LA Volume Index (BP A-L) 52.69 ml/m2 <=34.00 RA Dimensions RA Area (4C) 23.0 cm2 <=18.0 Final Signed by:MD Solorio Michael Signed (Electronic Signature):03/27/2023 12:02 XR Chest Single view * MD Carroll Jonelle M: VERIFY, VERIFY MD Carroll Jonelle M: VERIFY MD Mcgraw Joseph H: SIGN Contributor_system, [id number]: PERFORM Event Display: Report Authored Date: EXAMINATION: XR Chest 1 View CLINICAL HISTORY: chest pain COMPARISON: None FINDINGS: Single image of the chest. Normal cardiomediastinal silhouette. Enlarged bilateral pulmonary arteries. Bibasilar atelectasis. Prominence in the right paratracheal region and left upper lobe, cannot exclude nodular/mass lesions. No pneumothorax or pleural effusion. No acute osseous or soft tissue abnormality. IMPRESSION: 1. No acute cardiopulmonary process. 2. Enlarged bilateral pulmonary arteries, which can be seen in pulmonary hypertension. 3. Prominence in the right paratracheal region and left upper lobe, cannot exclude nodular lesions vs prominence of the 1st ribs. Suggest dedicated PA films. Dr. Warner Mcgraw is the dictating resident. Finalized reports status indicates that the attending has reviewed the images and report, and agrees with the interpretation. Preliminary report status should be regarded as NOT interpreted by the attending radiologist. Workstation ID: [id number] Final Dictated by:MD Mcgraw Joseph H Dictated DT/TM:03/26/2023 8:19 Resident:MD Mcgraw Joseph H Signed by:MD Carroll Jonelle M Signed (Electronic Signature):03/26/2023 8:18 p CTA Chest vessels W contrast IV * MD Ana, Jhonny S: SIGN MD Perez Tyler S: SIGNASHWINI MD, [facility]: VERIFY Contributor_system, [id number]: PERFORM Event Display: Report Authored Date: [id number] EXAMINATION: CHEST CT ANGIOGRAM CLINICAL HISTORY: chest pain, hypertensive; r/o aortic pathology COMPARISON: Chest radiograph dated 03/26/2023. TECHNIQUE: Non contrast CT of the chest followed by high pitch helical ECG gated CT scan through the chest after intravenous contrast administration. Data reconstructed as axial, sagittal, and coronal slices. Volume rendered and maximum intensity projection images were obtained and interpreted at a separate 3-D workstation. CONTRAST: Contrast Type (IV): Omnipaque 350 Contrast Volume (IV) in ml: 100.00 DOSE: Total Reported Dose Length Product (DLP) = 454.20 mGy.cm FINDINGS: Aorta: Three vessel left aortic arch (close origin of the brachiocephalic and left common carotid arteries). Mild calcified and noncalcified atherosclerosis. Aortic measurements at the following levels are Annulus: 31 mm Sinuses of Valsalva: 39 mm Sinotubular junction: 28 mm Maximum ascending diameter: 42 mm Arch proximal to the left subclavian artery: 31 mm Maximum descending diameter: 34 mm Pleura and Lungs: No concerning pulmonary nodules. Scattered sub-4 mm pulmonary nodules, largest inthe right lower lobe (axial 62); no dedicated follow-up is indicated on the basis of size. No pleural effusion or pneumothorax. Central airways: No endobronchial abnormality. Lymph nodes: Normal Thyroid and Mediastinum: Normal Heart and Great vessels: Normal-size heart with moderate coronary arterial atherosclerosis. No pericardial effusion. Mild enlargement of the pulmonary arteries. Upper abdomen: Normal Chest wall: Degenerative bony changes. No acute fractures. Anterolisthesis of C7 on T1, incompletely evaluated. Unremarkable body wall. IMPRESSION: 1. No acute aortic syndrome or other significant acute abnormality in the chest. 2. Mild ectasia of the ascending aorta. 3. Enlargement of the pulmonary arteries which can be seen with pulmonary hypertension. [place] Act 112: This study does not meet the requirements of [place] Act 112. Dr. Jhonny Perez is the dictating resident. Finalized reports status indicates that the attendinghas reviewed the images and report, and agrees with the interpretation. Preliminary report status should be regarded as NOT interpreted by the attending radiologist. Workstation ID: [id number] Final Dictated by:MD Perez Tyler S Dictated DT/TM:03/27/2023 4:46 Resident:MD Perez Tyler S Signed by:MD Nancy, [facility] Signed (Electronic Signature):03/27/2023 4:45 a Patient Care team information Care Team Personnel Name: Susan De Keri Position: Pharmacist Member Role: Pharmacy - Lifetime Name: KARELY Webster, Fatimah Lemons Position: RN - Surgical Member Role: Direct Care Nurse Name: KARELY Blair, Chana Garcia Position: RN - Surgical Member Role: Direct Care Nurse Name: R.E.S. Not Needed Position: Resident Name: MD Nicolette, Aiyana Boggs Position: Physician - Emerg Med SA Member Role: Covering (3 days after created) Address: Address: [address] [place], [place] [id number] Name: MD Fady, Ying Position: Physician - Hospitalist Med Member Role: * Quality Review (1 day after created) Address: Address: [address] [place] [address]
--- OUTSIDE RECORDS SUMMARY | 2024-07-06 17:59 | XMS_ITS | Continuity of Care Document ---
Author Organization [facility] Address [address] [place] [address]- Care Team Providers Care Rn Diabetes Educator Name Role Phone UNKNOWN, DOCTOR Primary Care Physician Unavailab le Encounter [facility] [id number] Date(s): 12/04/20 - 12/05/20 [facility] [address] [place] [address]- [facility] Facility Attending Physician: DOLORES SCHWARTZ MD Referring Physician: NONASSIGNED, PHYSICIAN Reason for Visit MULTI COMP Allergies, Adverse Reactions, Alerts No Known Medication Allergies Substance Reaction Severity Status Pork Active Assessment and Plan Diagnostic Tests Pending * Drug Screen, Urine with THC (UDS) 12/04/20 Medications amLODIPine 10 Milligram By Mouth ONCE A DAY. amphetamine-dextroamphetamin e (Adderall 30 mg oral tablet) 1 tab(s) By Mouth 2 TIMES A DAY. Problem List Condition Effective Dates Status Health Status Inform ant HTN (hypertension)(Confirmed) Active Results Laboratory List Name Date Basic Metabolic Panel / BMP / Chem 7 11/16 08/06 CBC and Diff with Platelet 12/04/20 Hepatic Function Panel (HFP) (Hepatic Fu nction Panel) 12/04/20 Magnesium Level 12/04/20 Phosphorus Level / PO4 Level 12/04/20 TSH (Thyroid Stimulating Hormone) 1 12/04/20 Test Result Reference Range Specimen Source Labo cristi WBC 5.8 X10E+09/L (Normal is 3.8-1 0.6 X10E+09/L) Peripheral Blood [facility] Hgb 13.1 gm/dL (Normal is 12.9-16.9 gm/dL) Peripheral Blood [facility] Hct 37.1 % (Normal is 38.0-48.8 %) Peripheral Blood [facility] Platelets 230 X10E+09/L (Normal is 156-3 69 X10E+09/L) Peripheral Blood [facility] Na 137 mMol/L (Normal is 136-1 46 mMol/L) Plasma [facility] K 3.7 mMol/L (Normal is 3.5-5 .0 mMol/L) Plasma [facility] Cl 104 mMol/L (Normal is 98-10 7 mMol/L) Plasma [facility] CO2 23 mMol/L (Normal is 21-31 mMol/L) Plasma [facility] BUN 20 mg/dL (Normal is 8-26 mg/dL) Plasma [facility] Cr 1.0 mg/dL (Normal is 0.5-1 .4 mg/dL) Plasma [facility] Glucose 117 mg/dL (Normal is 70-99 mg/dL) Plasma [facility] Ca 9.3 mg/dL (Normal is 8.4-1 0.2 mg/dL) Plasma [facility] Albumin 4.1 gm/dL (Normal is 3.4-5 .0 gm/dL) Plasma [facility] Mg 2.0 mg/dL (Normal is 1.6-2 .3 mg/dL) Plasma [facility] Phos 3.9 mg/dL (Normal is 2.5-4 .6 mg/dL) Plasma [facility] ALT/SGPT 16 IU/L (Normal is 17-63 IU/L) Plasma [facility] Bili, Total 0.4 mg/dL (Normal is 0.3-1 .5 mg/dL) Plasma [facility] Alk Phos 79 IU/L (Normal is 38-12 6 IU/L) Plasma [facility] Bili, Direct 0.0 mg/dL (Normal is 0.1-0 .5 mg/dL) Plasma [facility] AST/SGOT 22 IU/L (Normal is 15-41 IU/L) Plasma [facility] Total Protein 6.5 gm/dL (Normal is 6.3-7 .7 gm/dL) Plasma [facility] Lymphs 23 % (Normal is 13-44 %) Peripheral Blood [facility] Neutrophils 62 % (Normal is 44-77 %) Peripheral Bloo d [facility] TSH 1.354 uIU/mL (Normal is 0.300-5.000 uIU/mL) SER [facility] Laboratory Information [facility] CLIA Number: [id number] [address] [place] [address]- Vital Signs 12/04/20 BMI from metric 27.8 Blood Pressure 151/100mmHg Height (cm) 178 cm Dosing Weight (kg) 88.00 kg 1 Pulse 73 BPM O2 Saturation 98 % 1Result Comment: Dosing weight (kg) was created by Discern Expert using the Admission weight (kg). Social History Social History Type Response Smoking Status Yes, smoke everyday Sex Male Functional Status 12/04/20 Tested for COVID-19 No Does patient have viral resp illness No Direct close contact with COVID-19 No Travel to [facility], [place] etc., No
--- OUTSIDE RECORDS SUMMARY | 2024-07-06 17:59 | XMS_ITS | Continuity of Care Document ---
Author Organization [facility] Address Unknown Care Team Providers Care Watch Train Inspector Name Role Phone UNKNOWN, DOCTOR Primary Care Physician Unavailab le Encounter [facility] [id number] Date(s): 12/06/20 - 12/06/20 [facility] Discharge Disposition: Home/Routine Attending Physician: JILL HENDRICKSON MD Referring Physician: NONASSIGNED, PHYSICIAN Reason for Visit MEDICATION REFILL Allergies, Adverse Reactions, Alerts No Known Medication Allergies Substance Reaction Severity Status Pork Active Medications amLODIPine 10 Milligram By Mouth ONCE A DAY. amphetamine-dextroamphetamin e (Adderall 30 mg oral tablet) 1 tab(s) By Mouth 2 TIMES A DAY. Problem List Condition Effective Dates Status Health Status Inform ant HTN (hypertension)(Confirmed) Active Vital Signs 12/06/20 BMI from metric 27.1 Blood Pressure 207/122mmHg Height (cm) 178 cm Dosing Weight (kg) 86.00 kg 1 Pulse 76 BPM O2 Saturation 98 % Temperature Metric 37.1 DegC Respiratory Rate 18 br/min 1Result Comment: Dosing weight (kg) was created by Discern Expert using the Admission weight (kg). Social History Social History Type Response Smoking Status Yes, smoke everyday Sex Male Functional Status 12/06/20 Tested for COVID-19 No Does patient have viral resp illness No Direct close contact with COVID-19 No Travel to [place], [place] etc., No
--- OUTSIDE RECORDS SUMMARY | 2024-07-06 18:00 | XMS_ITS | Continuity of Care Document ---
Author Organization [facility] Address [address] [place] [address] Phone Care Team Providers Care Bed And Breakfast Cook Name Role Phone NONE, * Family Provider Unavailable PRIVATE, PHYSICIAN Emergency Provider Unavailabl e Allergies, Adverse Reactions, Alerts No allergy information available. Social History Assigned Sex Male Problems No problem information available. Medications No medication information available. Medical Equipment No Medical Equipment Information available Insurance Providers Payer Policy Id Coverage Id Subscriber's Name Subscriber Id Effective Date Expiration Date SELF PAY Self N/A Encounters Encounter Location(s) Arrival/Admit Date Discharge/Depart Date Provider(s) Departed Emergency [facility] Outpatient February 05, 2021 1:12pm February 05, 2021 1:22pm null Functional Status No Functional Status information available Mental Status No Mental Status Information Available Assessments No Assessments Information Available Plan of Treatment Future Tests Future scheduled test information is unavailable Pending Tests Pending diagnostic test information is unavailable Future Visits Future appointment information is unavailable Referrals to Other Providers Reason for Referral Referral Start Date Provider Rodrigo casey Contact Information Provider Address * NONE Future Procedures Future procedure information is unavailable Future Medications Future medication information is unavailable Patient Instructions Patient instructions are unavailable Goals Goals may be documented in an alternate section.
--- OUTSIDE RECORDS SUMMARY | 2024-07-06 18:00 | XMS_ITS | Continuity of Care Document ---
Author Organization [facility] Address [address] [place] [address] Phone Care Team Providers Care Chemical Dependency Counselor Name Role Phone DO Glen Santiago Emergency Provider [phone] UNKNOWN - PT DOES, NOT KNOW Family Provider Unav ailable Care Teams Patient Care Team Team Status: Active Member Role Status Dates NOT KNOW UNKNOWN - PT DOES Family Provider Active Visit Care Team Team Status: Inactive Member Role Status Dates Glen Santiago DO Emergency Provider Active NOT KNOW UNKNOWN - PT DOES Family Provider Active Allergies, Adverse Reactions, Alerts No known allergies Social History Smoking Status Status Start Date End Date Date of Observa tion Current every day smoker Jun us2022 7:30am Additional Data Assigned Sex Male Procedures Procedure Date Performed Status CR Femur - Right Min 2 Vw July 16, 2023 8: 03am completed Relevant Diagnostic Tests and/or Laboratory Data Diagnostic Imaging Reports Author Sunny Rosario [facility] July 16, 2023 9:24am Report Date/Time July 16, 2023 9: 26am [facility] [address] [place] [address] Patient Name: TEZ GROVER : 1965 Unit Number: [id number] Age/Sex: 58/M Patient Location: EMR Order Provider: Glen Santiago DO Exam Service Date: 07/16/23 Diagnostic Imaging Report Signed Order #:[id number] Exams: CR Femur - Right Min 2 Vw PROCEDURE: CR Femur - Right Min 2 Vw CLINICAL INDICATION: pain, ? fx by hx COMPARISON: None in this facility and no outside studies available. FINDINGS: On AP view, there is a predominantly vertically oriented thin lucency within the distal right femur suspicious for a nondisplaced fracture, finding not confirmed on lateral view. Some degenerative changes are seen about the right hip and right knee. Some atherosclerotic vascular soft tissue calcifications are noted. There is no suspected suprapatellar effusion. IMPRESSION: Findings suspicious for predominantly vertically oriented nondisplaced fracture,distal right femur. Electronically signed by Sunny Rosario MD 07/16/2023 9:24 AM Dictated By: Sunny Rosario MD Dictated Date & Time: 07/16/23901 Signed/Co-Signer By: Sunny Rosario MD / Signed/Co-Signer Date & Time: 07/16/23923 / Transcribed by: Sunny Rosario Printed Date and Time: @ cc: Vital Signs Vital Reading Result Reference Range Collection Date/Time Height 71 [in_i] July 16 7:30am Weight 187.83 [lb_av] July 16, 2023 7:30am Body Temperature 98.2 [degF] 97-100.3 June 7:30am Heart Rate 62 /min July 16 11:29am Respiratory rate 18 /min June 11:29am Oxygen saturation by Pulse oximetry 99 % July 16, 2023 11 :29am BP Systolic 156 mm[Hg] July 16 11:29am BP Diastolic 66 mm[Hg] July 16 11:29am BMI (Body Mass Index) 26.2 kg/m2 July 16, 2023 7:30am Insurance Providers Guarantor Tez Grover Address [address] [place] [phone] Contact Info. Home Phone: Payer Policy Id Coverage Id Subscriber's Name Subscriber Id Effective Date Expiration Date SELF PAY Self N/A Encounters Encounter Location(s) Arrival/Admit Date Discharge/Depart Date Provider(s) Departed Emergency [facility] Dept Outpatient July 16, 2023 7:27am July 16, 2023 11:31am null Plan of Treatment Future Tests Future scheduled test information is unavailable Pending Tests Pending diagnostic test information is unavailable Future Visits Future appointment information is unavailable Referrals to Other Providers Reason for Referral Referral Start Date Provider Provider Contact Information Provider Address Brandon Queen MD Work Phone: [facility] [address] [address] UNKNOWN - DOES NOT KNOW , PT Future Procedures Future procedure information is unavailable Future Medications Future medication information is unavailable Patient Instructions Knee Immobilizer (DC) Femur Fracture Hospital Discharge Instructions Additional Instructions Please see orthopedics or the [facility] for further follow-up of your femur fracture. Please strictly remain nonweightbearing with crutches and knee immobilizer as advised. A homeless fdc in [place] is available at [facility] in [facility]. Return immediately for difficulty breathing, worsening pain, fevers or any other concerns.
--- OUTSIDE RECORDS SUMMARY | 2024-07-06 18:00 | XMS_ITS | Referral Summary ---
Author Organization [facility] Address [address] [place] [id number] Encounter [facility] JAIRSUZIR [id number] Date(s): 12/10/21 - 12/10/[address] [phone] Encounter Diagnosis Delusions(Discharge Diagnosis) - 12/10/21 Discharge Disposition: Home or Self Care Attending Physician: DO Castrejon J Elizabeth Vital Signs Most recent to oldest [Reference Range]: 1 Height 182.88 cm (12/10/21 2:00 AM) Patient Weight 83.6 kg (12/10/21 2:00 AM) Body Mass Index 25 kg/m2 (12/10/21 2:00 AM) Temperature [36.5-37.9 DegC] 36.2 DegC *LOW* (12/10/21 2:00 AM) Heart Rate 90 bpm (12/10/21 2:00 AM) Respiratory Rate 20 br/min (12/10/21 2:00 AM) Blood Pressure 163/115mmHg (12/10/21 2:00 AM) Mean Blood Pressure 130 mmHg (12/10/21 2:00 AM) Cuff Pulse Pressure 48 mmHg (12/10/21 2:00 AM) BP Location # 1 Right Arm (12/10/21 2:00 AM) Problem List Condition Effective Dates Status Health Status Inform ant ADHD(Confirmed) Active Narcolepsy(Confirmed) Active Allergies, Adverse Reactions, Alerts No Known Medication Allergies Medications Adderall 30 mg oral tablet Start: 12/06/21 18:39:00 EST, 1 tab, PO, bid, Disp# 60 tab, Refills: 0 Start Date: 12/06/21 Stop Date: 01/05/22 Status: Ordered Motrin Start: 12/02/21 1:48:00 EST Start Date: 12/02/21 Status: Ordered Social History Social History Type Response Smoking Status Never smoked cigaret andrea
--- OUTSIDE RECORDS SUMMARY | 2024-07-06 18:00 | XMS_ITS | Continuity of Care Document ---
Author Name [facility] Address [address] [place] [address] Organization [facility] Address [address] [place] [address] Care Team Providers Care Hearing Aid Assembly Supervisor Name Role Phone NONE, * Primary Care Physician Unavailab le PRIVATE, PHYSICIAN Rounding Physician Unavailabl e Allergies, Adverse Reactions, Alerts No allergy information available. Medications No medication information available. Problem List No problem information available. Procedures No known history of procedures. Relevant Diagnostic Tests and/or Laboratory Data No known relevant diagnostic tests, laboratory data, and/or discharge summary. Hospital Discharge Instructions No known hospital discharge instructions. Encounters Encounter Facility Location Admit Date Discharge Date Atte nding Provider Departed Emergency [facility] Emergency Dept Outpatient February 05, 2021 1:12pm February 05, 2021 1:22pm Functional Status No known functional status. Immunizations No known immunizations. Plan of Care No known plan of care. Social History No known social history. Vital Signs No known vital signs results.
--- OUTSIDE RECORDS SUMMARY | 2024-07-06 18:00 | XMS_ITS | Continuity of Care Document ---
Author Organization [facility] Address [address] [place] [address] Phone Care Team Providers Care Auxiliary Power Equipment Operator Name Role Phone DO Glen Santiago Emergency Provider [phone] UNKNOWN - PT DOES, NOT KNOW Family [...] Data Diagnostic Imaging Reports Author Sunny Rosario [facility] July 16, 2023 9:24am Report Date/Time July 16, 2023 9: 26am [facility] [address] [place] [address] Patient Name: TEZ GROVER : 1965 Unit Number: [id number] Age/Sex: 58/M Patient Location: EMR Order Provider: Glen Santiago DO Exam Service Date: 07/16/23 Diagnostic Imaging Report Signed Order #:[id number] Exams: CR Femur - Right Min 2 [...] 7:30am Insurance Providers Guarantor Tez Grover Address [address] [place] [phone] Contact Info. Home Phone: Payer Policy Id Coverage Id Subscriber's Name Subscriber Id Effective Date Expiration Date SELF PAY Self N/A Encounters Encounter Location(s) Arrival/Admit Date Discharge/Depart Date Provider(s) Departed Emergency [facility]Emer[facility] Dept Outpatient July 16, 2023 7:27am July 16, 2023 11:31am null Plan of Treatment Future Tests Future scheduled test information is unavailable Pending Tests Pending diagnostic test information is unavailable Future Visits Future appointment information is unavailable Referrals to Other Providers Reason for Referral Referral Start Date Provider Provider Contact Information Provider Address Brandon Queen MD Work Phone: [facility] [address] [address] UNKNOWN - DOES NOT KNOW , PT Future Procedures Future procedure information is unavailable Future Medications Future medication information is unavailable Patient Instructions Knee Immobilizer (DC) Femur Fracture Hospital Discharge Instructions Additional Instructions Please see orthopedics or the [facility] for further follow-up of your femur fracture. Please strictly remain nonweightbearing with crutches and knee immobilizer as advised. A homeless long-term in [place] is available at [facility] in [facility]. Return immediately for difficulty breathing, worsening pain, fevers or any other concerns.
--- OUTSIDE RECORDS SUMMARY | 2024-07-06 18:00 | XMS_ITS | Continuity of Care Document ---
Author Organization [facility] Address [address] [place] [address] Phone Support Name Relationship Address Phone Karri Quigley Family/Other [address] [place] [address] Pcp-Md Gaurav Primary Care Provider Unknown Unavai lable Hedy Gonzalez Emergency Provider [facility] [place] [address] Tani Davis Other Provider [address] [place] [address] Jatinder Quispe Emergency Provider Unknown Unavai lable Allergies, Adverse Reactions, Alerts Allergen Type Severity Reaction Last Updated Verified Status Opioids - Morphine Analogues Allergy Unknown February 05, 2020 Yes Active anti-depressants Allergy Unknown February 05, 2020 No Active anti-psychotics Allergy Unknown February 05, 2020 No Active Medications Medication Status Dose Units Route Sig Qty Days Start Date End Date Instructions D-Amphetamine Salt Combo Tab Active 30 MG Oral TWICE A DAY December 31, 2019 6:22pm Problems Active Problems Medical Problem Onset Date Status PTSD (post-traumatic stress disorder) Active Manic behavior Active TBI (traumatic brain injury) Act sonny ADHD Active Inactive/Resolved Problems Medical Problem Onset Date Status Psychosis Resolved Procedures Procedure Date Performed Status Urine Culture February 05, 2020 completed Relevant Diagnostic Tests and/or Laboratory Data Laboratory Results Test Date/Time Result Interpretation Reference Range Result Comment Performing Site White Blood Count February 05, 2020 2:52pm 7.5 X10 3/uL 4.5-11.0 [facility], [address] [facility] [address] White Blood Count February 13, 2020 9:54pm 10.3 X10 3/uL 4.5-11.[address] [facility], [address] [place] [address] Red Blood Count February 05, 2020 2:52pm 4.99 X10 6/uL 4.00-5.50 [facility], [address] [place] [address] Red Blood Count February 13, 2020 9:54pm 4.16 X10 6/uL 4.00-5.[address] [facility], [address] [place] [address] Hemoglobin February 05, 2020 2:52pm 15.4 g/dl 12.0-17.0 [facility], [address] [place] [address] Hemoglobin February 13, 2020 9:54pm 12.9 g/dl 12.0-17.[address] [facility], [address] [place] [address] Hematocrit February 05, 2020 2:52pm 45.8 % 35.0-50.0 [facility], [address] [place] [address] Hematocrit February 13, 2020 9:54pm 37.6 % 35.0-50.[address] [facility], [address] [place] [address] Mean Corpuscular Volume February 05, 2020 2:52pm 91.8 fl 80.0-100.0 [facility], [address] [place] [address] Mean Corpuscular Volume February 13, 2020 9:54pm 90.4 fl 80.0-100.[address] [facility], [address] [place] [address] Mean Corpuscular Hemoglobin February 05, 2020 2:52pm 30.9 pg 27.0-34.0 [facility], [address] [place] [address] Mean Corpuscular Hemoglobin February 13, 2020 9:54pm 31.0 pg 27.0-34.[address] [facility], [address] [place] [address] Mean Corpuscular Hemoglobin Concent February 05, 2020 2:52pm 33.6 g/dl 31.0-36.0 [facility], [address] [place] [address] Mean Corpuscular Hemoglobin Concent February 13, 2020 9:54pm 34.3 g/dl 31.0-36.[address] [facility], [address] [place] [address] Red Cell Distribution Width February 05, 2020 2:52pm 12.6 % 11.5-15.0 [facility], [address] [place] [address] Red Cell Distribution Width February 13, 2020 9:54pm 12.6 % 11.5-15.[address] [facility], [address] [place] [address]87[address] Platelet Count February 05, 2020 2:52pm 237 X10 3/uL 150-400 [facility], [address] [place] [address] Platelet Count February 13, 2020 9:54pm 224 X10 3/uL 150-[address] [facility], [address] [place] [address] Immature Granulocyte % (Auto) February 05, 2020 2:52pm 0.4 % [facility], [address] [facility] [address] Immature Granulocyte % (Auto) February 13, 2020 9:54pm 0.2 % [facility], [address] [place] [address] Neutrophils (%) (Auto) February 05, 2020 2:52pm 70.7 % [facility], [address] [facility] [address] Neutrophils (%) (Auto) February 13, 2020 9:54pm 77.8 % [facility], [address] [place] [address] Lymphocytes (%) (Auto) February 05, 2020 2:52pm 18.6 % [facility], [address] [facility] [address] Lymphocytes (%) (Auto) February 13, 2020 9:54pm 12.1 % [facility], [address] [place] [address] Monocytes (%) (Auto) February 05, 2020 2:52pm 6.5 % [facility], [address] [facility] [address] Monocytes (%) (Auto) February 13, 2020 9:54pm 6.9 % [facility], [address] [place] [address] Eosinophils (%) (Auto) February 05, 2020 2:52pm 2.5 % [facility], [address] [facility] [address] Eosinophils (%) (Auto) February 13, 2020 9:54pm 2.2 % [facility], [address] [place] [address] Basophils (%) (Auto) February 05, 2020 2:52pm 1.3 % [facility], [facility] [place] [address] Basophils (%) (Auto) February 13, 2020 9:54pm 0.8 % [facility], [address] [place] [address] Immature Granulocyte # (Auto) February 05, 2020 2:52pm 0.03 X10 3/uL 0.00-0.09 [facility], [address] [facility] [address] Immature Granulocyte # (Auto) February 13, 2020 9:54pm 0.02 X10 3/uL 0.00-0.[address] [facility], [address] [place] [address] Neutrophils # (Auto) February 05, 2020 2:52pm 5.3 X10 3/uL 1.5-7.8 [facility], [address] [facility] [address] Neutrophils # (Auto) February 13, 2020 9:54pm 8.0 X10 3/uL 1.5-7.[address] [address] Lymphocytes # (Auto) February 05, 2020 2:52pm 1.4 X10 3/uL 1.0-4.8 [facility], [address] [facility] [address] Lymphocytes # (Auto) February 13, 2020 9:54pm 1.3 X10 3/uL 1.0-4.[address] [facility], [address] [place] [address] Monocytes # (Auto) February 05, 2020 2:52pm 0.5 X10 3/uL 0.0-0.8 [facility], [address] [facility] [address] Monocytes # (Auto) February 13, 2020 9:54pm 0.7 X10 3/uL 0.0-0.[address] [facility], [address] [place] [address] Eosinophils # (Auto) February 05, 2020 2:52pm 0.2 X10 3/uL 0.0-0.5 [facility], [address] [facility] [address] Eosinophils # (Auto) February 13, 2020 9:54pm 0.2 X10 3/uL 0.0-0.[address] [facility], [address] [place] [address] Basophils # (Auto) February 05, 2020 2:52pm 0.1 X10 3/uL 0.0-0.2 [facility], [address] [facility] [address] Basophils # (Auto) February 13, 2020 9:54pm 0.1 X10 3/uL 0.0-0.[address] [facility], [address] [place] [address] Nucleated Red Blood Cells % February 05, 2020 2:52pm 0.0 /100 WBC 0.0-0.0 [facility], [address] [facility] [address] Nucleated Red Blood Cells % February 13, 2020 9:54pm 0.0 /100 WBC 0.0-0.[address] [facility], [address] [place] [address] Urine Color February 05, 2020 3:07pm Yellow Yellow [facility], [address] [facility] [address] Urine Clarity February 05, 2020 3:07pm Hazy Clear [facility], [address] [place] [address] Urine pH February 05, 2020 3:07pm 7.0 5.0-8.0 [facility], [address] [place] [address] Urine Specific [place] February 05, 2020 3:07pm 1.010 1.003-1.03 0 [facility], [address] [place] [address] Urine Blood February 05, 2020 3:07pm Negative mg/dl Negative [facility], [address] [place] [address] Urine Protein February 05, 2020 3:07pm Negative mg/dl Negative [facility], [address] [place] [address] Urine Glucose (UA) February 05, 2020 3:07pm Negative mg/dl Negative [facility], [address] [place] [address] Urine Ketones February 05, 2020 3:07pm Negative mg/dl Negative [facility], [address] [place] [address] Urine Nitrate February 05, 2020 3:07pm Negative Negative [facility], [address] [place] [address] Urine Bilirubin February 05, 2020 3:07pm Negative mg/dl Negative [facility], [address] [place] [address] Urine Urobilinogen February 05, 2020 3:07pm Normal mg/dl Normal [facility], [address] [place] [address] Urine Leukocyte Esterase February 05, 2020 3:07pm Small Negative [facility], [address] [place] [address] Urine Microscopic Indicated February 05, 2020 3:07pm . [facility], [address] [place] [address] Urine Red Cell Clumps February 05, 2020 3:07pm Bank Guard [facility], [address] [place] [address] Urine WBC February 05, 2020 3:07pm 2 /hpf 0-5 [facility], [address] [place] [address] Sodium Level February 05, 2020 2:52pm 134 mmol/L 137-146 [facility], [address] [facility] [address] Sodium Level February 13, 2020 9:54pm 140 mmol/L 137-[address] [facility], [address] [place] [address] Potassium Level February 05, 2020 2:52pm 3.9 mmol/L 3.5-5.3 [facility], [address] [facility] [address] Potassium Level February 13, 2020 9:54pm 3.8 mmol/L 3.5-5.[address] [facility], [address] [place] [address] Chloride Level February 05, 2020 2:52pm 97 mmol/L 98-107 [facility], [address] [facility] [address] Chloride Level February 13, 2020 9:54pm 103 mmol/L 98-[address] [facility], [address] [place] [address]250 Carbon Dioxide Level February 05, 2020 2:52pm 22 mmol/L 23-32 [facility], [address] [facility] [address] Carbon Dioxide Level February 13, 2020 9:54pm 25 mmol/L 23-[address] [facility], [address] [place] [address]253 Anion Gap February 05, 2020 2:52pm 15 mmol/L - [facility], [address] [facility] [address] Anion Gap February 13, 2020 9:54pm 13 mmol/L 03-[address] [facility], [address] [place] [address] 95385 Blood Urea Nitrogen February 05, 2020 2:52pm 19 mg/dl - [facility], [address] [place] [address] Blood Urea Nitrogen February 13, 2020 9:54pm 21 mg/dl 5-[address] [facility], [address] [place] [address]117 Creatinine February 05, 2020 2:52pm 0.9 mg/dL 0.6-1.4 [facility], [address] [place] [address] Creatinine February 13, 2020 9:54pm 0.9 mg/dL 0.6-1.[address] [facility], [address] [place] [address] 697[address] Estimated Creatinine Clearance February 05, 2020 2:52pm 105.6 ml/min This value is calculated by Cockcroft Gault Equation using ideal body weight. This result is dependent on an accurate patient height and weight which is obtained from patients medical record. Jessi Morillo. and M.H. Etta. Prediction of creatinine clearance from serum creatinine. Nephron. 1976. 16(1):31-41. [facility], [address] [place] [address] Estimated Creatinine Clearance February 13, 2020 9:54pm Bank Guard Unable to Calculate CRCL,Ht and/or Wt missing [facility], [address] [place] [address]44[address] Estimated GFR () February 05, 2020 2:52pm > 60 >60 [facility], [address] [facility] [address] Estimated GFR () February 13, 2020 9:54pm > 60 >[address] [facility], [address] [place] [address] Estimated GFR (Non- February 05, 2020 2:52pm > 60 >60 [facility], [address] [facility] [address] Estimated GFR (Non- February 13, 2020 9:54pm > 60 >[address] [facility], [address] [place] [address]117 BUN/Creatinine Ratio February 05, 2020 2:52pm 21.1 10.0-20.0 [facility], [address] [facility] [address] BUN/Creatinine Ratio February 13, 2020 9:54pm 23.3 10.0-20.[address] [facility], [address] [place] [address]29[address] Glucose Level February 05, 2020 2:52pm 100 mg/dL 70-100 [facility], [address] [place] [address] Glucose Level February 13, 2020 9:54pm 115 mg/dL 70-[address] [facility], [address] [place] [address]195 Calcium Level February 05, 2020 2:52pm 9.7 mg/dl 8.6-10.3 [facility], [address] [facility] [address] Calcium Level February 13, 2020 9:54pm 9.0 mg/dl 8.6-10.[address] [facility], [address] [place] [address] 26799 Total Bilirubin February 05, 2020 2:52pm 0.4 mg/dl <1.2 [facility], [address] [place] [address] Aspartate Amino Transf (AST/SGOT) February 05, 2020 2:52pm 28 U/L 15-41 Specimen hemolyzed, results affected, evaluate with caution. [facility], [address] [place] [address] Alanine Aminotransfera se (ALT/SGPT) February 05, 2020 2:52pm 21 U/L 14-63 [facility], [address] [place] [address] Total Protein February 05, 2020 2:52pm 7.9 g/dL 6.4-8.3 [facility], [address] [place] [address] Albumin February 05, 2020 2:52pm 4.9 g/dl 4.0-5.0 [facility], [address] [address] Albumin/Globul in Ratio February 05, 2020 2:52pm 1.6 1.0-2.6 [facility] [address] [place] [address] Alkaline Phosphatase February 05, 2020 2:52pm 131 U/L 40-129 [facility] [address] [place] [address] Urine Amphetamines Screen February 05, 2020 3:07pm Positive Negative Confirmation by GC/MS not routinely performed for Non-Maternity locations. If confirmation is required, an order must be placed.Amphetami erwin Cutoff level 1000 ng/mL. [facility], [address] [place] [address] Urine Amphetamines Screen February 13, 2020 9:30pm Positive Negative Confirmation by GC/MS not routinely performed for Non-Maternity locations. If confirmation is required, an order must be placed.Amphetami erwin Cutoff level 1000 ng/mL. [facility], [address] [place] [address] Urine Methadone Screen February 05, 2020 3:07pm Negative Negative Methadone Cutoff level 300 ng/mL [facility], [address] [place] [address] Urine Methadone Screen February 13, 2020 9:30pm Negative Negative Methadone Cutoff level 300 ng/mL [address] [address] Urine Oxycodone Screen February 05, 2020 3:07pm Negative Negative Oxycontin/Oxycod one Cutoff level 100 ng/mL [facility], [address] [place] [address] Urine Oxycodone Screen February 13, 2020 9:30pm Negative Negative Oxycontin/Oxycod one Cutoff level 100 ng/mL [address] [address] Urine Buprenorphine Screen February 05, 2020 3:07pm Negative Negative Buprenorphine Cutoff level 5 ng/mL [facility], [address] [place] [address] Urine Buprenorphine Screen February 13, 2020 9:30pm Negative Negative Buprenorphine Cutoff level 5 ng/mL [address] [address] Salicylates Level February 13, 2020 9:54pm < 1.0 mg/dL Salicylate Reference Range: Negative <1.0 mg/dL Therapeutic Range: 2.0-20.0 mg/dL [address] [address] Urine Opiates Screen February 05, 2020 3:07pm Negative Negative Opiate Cutoff level 300 ng/mLOxycontin/O xycodone is not detected below the threshold of20,000 ng/mL [facility], [address] [facility] [address] Urine Opiates Screen February 13, 2020 9:30pm Negative Negative Opiate Cutoff level 300 ng/mLOxycontin/O xycodone is not detected below the threshold of20,000 ng/mL [address] [address] Urine Fentanyl Screen February 05, 2020 3:07pm Negative Negative Fentanyl Cutoff level 2.0 ng/mL [facility], [address] [facility] [address] Urine Fentanyl Screen February 13, 2020 9:30pm Negative Negative Fentanyl Cutoff level 2.0 ng/mL [address] [address] Acetaminophen Level February 13, 2020 9:54pm < 5 ug/mL Acetaminophen Reference Range: Negative <5 ug/mL [address] [address] Urine Benzodiazepine s Screen February 05, 2020 3:07pm Negative Negative Please note that the current method for benzodiazepines may be less sensitive to lorazapam detection than previously. If this result is negative and you are concerned about a false negative result for lorazepam, additional testing is possible. Please contact the laboratory.Benzo diazepine Cutoff level 200 ng/mL [facility], [address] [facility] [address] Urine Benzodiazepine s Screen February 13, 2020 9:30pm Negative Negative Please note that the current method for benzodiazepines may be less sensitive to lorazapam detection than previously. If this result is negative and you are concerned about a false negative result for lorazepam, additional testing is possible. Please contact the laboratory.Benzo diazepine Cutoff level 200 ng/mL [address] [place] [address] Urine Cocaine Screen February 05, 2020 3:07pm Negative Negative Cocaine Cutoff level 300 ng/mL [facility], [address] [facility] [address] Urine Cocaine Screen February 13, 2020 9:30pm Negative Negative Cocaine Cutoff level 300 ng/mL [facility], [address] [place] [address] Urine Cannabinoids Screen February 05, 2020 3:07pm Positive Negative Confirmation by GC/MS not routinely performed for Non-Maternity locations. If confirmation is required, an order must be placed.THC Cutoff level 50 ng/mLThis report is intended for use in clinical monitoring and management of patients. It is not intended for use in employment related drug testing or court related proceedings. Samples are not routinely tested for adulteration and are assumed to be within the normal physiological pH range of 5 - 8. [facility], [address] [facility] [facility] [address] Urine Cannabinoids Screen February 13, 2020 9:30pm Positive Negative Confirmation by GC/MS not routinely performed for Non-Maternity locations. If confirmation is required, an order must be placed.THC Cutoff level 50 ng/mLThis report is intended for use in clinical monitoring and management of patients. It is not intended for use in employment related drug testing or court related proceedings. Samples are not routinely tested for adulteration and are assumed to be within the normal physiological pH range of 5 - 8. [facility], [address] [place] [address] Serum Alcohol February 05, 2020 2:52pm < 10 mg/dl <10 [facility], [address] [facility] [facility] [address] Serum Alcohol February 13, 2020 9:54pm < 10 mg/dl <[address] [facility], [address] [place] [address] Microbiology Results Procedure Source Result Collection Date/Time Result Date/Time Result Comment Performing Site Urine Culture Urine,Clean Catch February 05, 2020 3:29pm February 07, 2020 10:55am [facility], [address] [facility] [address] Advance Directives Advance Directive Response Recorded Date/ Time Advance Directives No February 04 6:30pm Health Care Proxy No February 04 8:59pm Advance Directives No February 13 12:43am Health Care Proxy No February 13 4:30am Chief Complaint and Reason for Visit Chief Complaint PSYCH EVAL Encounters Encounter Location(s) Arrival/Admit Date Discharge/Depart Date Provider(s) Departed Emergency [facility] Emergency Room Department February 05, 2020 2:30pm February 05, 2020 5:58pm null Departed Emergency [facility]Emergency Dept February 13, 2020 8:41pm February 14, 2020 7:58am null Assessments No Assessments Information Available Functional Status No Functional Status information available Goals Acute Goals These follow-up with your [facility] physician or with the [facility] first available appointment. Please find jail, it is supposed to snow in the next day or so. Return to the emergency room immediately for any failure to improve new onset symptoms or any worsening condition. Mental Status Observation Response Date Recorded Patient Behavior Cooperative February 04 0 8:59pm Anxious February 05, 2020 8:59pm Talkative February 05, 2020 8:59pm Patient Behavior Cooperative February 13 0 4:30am Talkative February 14, 2020 4:30am Medical Equipment No Medical Equipment Information available Insurance Providers Guarantor Tez Quigley Address [address] [place] [address] [address] [place] [id number] Contact Info. Home Phone: Payer Policy Id Coverage Id Subscriber's Name Subscriber Id Effective Date Expiration Date Legal VeteransAdministrati on [id number] Tez Quigley [id number] Medicare A Medicare A&B [id number] Tez Quigley [id number] Self Pay Self N/A Plan of Treatment Future Tests Future scheduled test information is unavailable Pending Tests Pending diagnostic test information is unavailable Future Visits Future appointment information is unavailable Referrals to Other Providers Reason for Referral Referral Start Date Provider Provider Contact Information Provider Address Pcp-None Referral Line [employer] Phone: [facility] Future Procedures Future procedure information is unavailable Future Medications Future medication information is unavailable Patient Instructions PTSD Coping TBI Anxiety ED Stress React ED Manic Depression Social History Smoking Status Status Date of Observation Smokes tobacco daily (finding) January 9:46pm Observation Status Observation Response Date of Response Living Situation Homeless February 04 0 8:59pm Other Living Situation Pt states he lives in [place]. February 05, 2020 6:50pm Lives With Alone February 14, 2020 12:30am Assigned Sex Male Vital Signs Vital Reading Result Reference Range Collection Date/Time Height 177.8 cm February 04 0 6:50pm Weight 89.35 kg February 04 0 6:50pm Body Temperature 97.5 [degF] 97.6-99.6 February 05, 2020 2:50pm Heart Rate 69 /min 60-90 February 04 0 2:50pm Respiratory rate 16 /min -February 05, 2020 2:50pm Oxygen saturation by Pulse oximetry 98 % 95-100 February 05, 2020 2:5 0pm BP Systolic 179 mm[Hg] 90-140 February 04 0 2:50pm BP Diastolic 106 mm[Hg] 60-90 February 04 0 2:50pm BMI (Body Mass Index) 28.3 kg/m2 February 05, 2020 6:50pm Body Temperature 97.8 [degF] 97.6-99.6 February 14, 2020 12:49am Heart Rate 89 /min 60-90 February 13 0 7:58am Respiratory rate 20 /min -February 14, 2020 7:58am Oxygen saturation by Pulse oximetry 97 % 95-100 February 14, 2020 12: 49am BP Systolic 124 mm[Hg] 90-140 February 13 0 7:58am BP Diastolic 59 mm[Hg] 60-90 February 13 0 7:58am
--- OUTSIDE RECORDS SUMMARY | 2024-07-06 18:00 | XMS_ITS | Continuity of Care Document ---
Author Organization [facility] New Address [address] [place] [address], [id number] Encounter Date(s): 11/02/19 - 11/03/19 [id number] [place] [address] Discharge Disposition: Against Medical Advice Attending Physician: Serafin Rosado M.D. Referring Physician: [facility] Allergies, Adverse Reactions, Alerts Substance Reaction Severity Status tetracyclic antidepressants Active methadone-like opiates Activ e Medications Adderall 20 mg oral tablet 1 tab, PO, BID, one 5am and one tab 1300 daily, 0 Refill(s), Therapy Type: Maintenance Start Date: 11/03/19 Status: Ordered KlonoPIN 1 mg oral tablet 1 tab, PO, BID, Refill(s) 0, Therapy Type: Maintenance Start Date: 11/03/19 Status: Ordered RisperiDONE 2 mg, PO, qPM, Refill(s) 0, Therapy Type: Maintenance Start Date: 11/03/19 Status: Ordered Mental Status 11/03/19 Affect/Behavior Anxious, Flight risk, Inappropriate, Restless, Other: pt standing at door with security talking constantly telling stories about god and millitary life. 11/03/19 Eye Opening Response Spontaneously Best Verbal Response Oriented Best Motor Response Obeys commands Tsering Coma Score 15 Results Laboratory List Name Date Troponin I 11/02/19 BMP-Mini Panel 11/02/19 BNP 11/02/19 CBC 11/02/19 CK (Creatine Kinase) (CPK) 11/02/19 PTT 11/02/19 Protime (PT(Protime)) 11/02/19 Troponin I 11/02/19 .CKD Screen 11/02/19 Hematology Most recent to oldest [Reference Range]: 1 2 WBC [4.0-10.0 X 10^3/mm3] 5.8 X 10^3/mm3 (11/02/19 11:27 AM) RBC [4.63-6.08 X 10^6/mm3] 4.30 X 10^6/m m3 *LOW* (11/02/19 11:27 AM) Hgb [13.7-17.5 g/dL] 13.0 g/dL *LOW* (11/02/19 11:27 AM) Hct [40.1-51.0 %] 38.6 % *LOW* (11/02/19 11:27 AM) MCV [79-92 fL] 90 fL (11/02/19 11:27 AM) MCH [25.7-32.2 pg] 30.2 pg (11/02/19 11:27 AM) MCHC [32.3-36.5 g/dL] 33.7 g/dL (11/02/19 11:27 AM) Platelet Count [163-337 X 10^3/mm3] 231 X 10^3/mm3 (11/02/19 11:27 AM) RDW [11.6-14.4 %] 13.3 % (11/02/19 11:27 AM) MPV [9.4-12.4 fL] 8.4 fL *LOW* (11/02/19 11:27 AM) NRBC [0.0-0.2 /100 WBC] 0.0 /100 WBC (11/02/19 11:27 AM) Coagulation Most recent to oldest [Reference Range]: 1 2 PT [9.3-13.1 sec] 12.3 sec (11/02/19 11:27 AM) INR 1.1 *NA* (11/02/19 11:27 AM) PTT [23.4-44.2 sec] 28.4 sec (11/02/19 11:27 AM) HIE Chemistry General Most recent to oldest [Reference Range]: 1 2 Glucose Level [70-99 mg/dL] 97 mg/dL (11/02/19 11:27 AM) Sodium [135-145 mmol/L] 138 mmol/L (11/02/19 11:27 AM) Potassium [3.3-5.3 mmol/L] 3.5 mmol/L (11/02/19 11:27 AM) Chloride [95-110 mmol/L] 106 mmol/L (11/02/19 11:27 AM) CO2 [21-31 mmol/L] 24 mmol/L (11/02/19 11:27 AM) BUN [5-25 mg/dL] 16 mg/dL (11/02/19 11:27 AM) Creatinine [0.50-1.50 mg/dL] 0.75 mg/dL (11/02/19 11:27 AM) CKD Screen not AfroAm [>=60 mL/min/1.73m2] 105 mL/min/1.73m2 (11/02/19 11:27 AM) CKD Screen AfroAm [>=60 mL/min/1.73m2] > 120 mL/min/1.73m2 (11/02/19 11:27 AM) Calcium [7.9-10.0 mg/dL] 9.0 mg/dL (11/02/19 11:27 AM) CK [25-200 Units/L] 299 Units/L *HI* (11/02/19 11:27 AM) Troponin [<=0.05 ng/mL] <0.02 ng/mL (11/02/19 2:49 PM) <0.02 ng/mL (11/02/19 11:27 AM) BNP [<=100 pg/mL] 22 pg/mL (11/02/19 11:27 AM) Radiology Reports * Exam Date Time Procedure Performing Provider Status 11/02/19 1:47 PM CTA Thoracic Aorta Dayanna Lewis; Yeimy fibernadette Notes: (CTA Thoracic Aorta) Reason For Exam: Dissection CTA Thoracic Aorta CTA Thoracic Aorta HISTORY: Dissection. COMPARISON: None. TECHNIQUE: Noncontrast CT scan performed through the chest without contrast. Postcontrast imaging then performed using angiographic technique to evaluate for aortic dissection. Multiplanar reformation imaging obtained. 3D reconstruction performed. Total DLP: 641 mGy*cm CTDI: 8 mGy FINDINGS: Thoracic aorta is normal in caliber without dissection. Mild atherosclerotic disease in the proximal left common carotid artery. Heart size is normal. Coronary arterial calcification. No pericardial or pleural effusion. No lymphadenopathy. Visualized upper abdomen is normal. No pulmonary embolus mark ntified. Mild debris seen within the left mainstem bronchus and trachea. Degenerative changes of the thoracic spine.. IMPRESSION: NO THORACIC AORTIC ANEURYSM OR DISSECTION. NO PULMONARY EMBOLUS. CORONARY ARTERIAL CALCIFICATION. MILD DEBRIS SEEN WITHIN THE TRACHEA AND LEFT MAINSTEM BRONCHUS Final Report Signing Physician: Bernabe Meza M.D. Date Signed: 11/02/2019 14:05 * Exam Date Time Procedure Performing Provider Status 11/02/19 12:13 PM DI Portable Chest 1 View Kira Chamberlain sa; Modified Notes: (DI Portable Chest 1 View) Reason For Exam: Chest Pain DI Portable Chest 1 View DI Portable Chest 1 View HISTORY: Chest Pain. COMPARISON: None. FINDINGS: Portable AP view of the chest demonstrates no evidence of infiltrate or pleural effusion. Cardiomediastinal silhouette is normal. Bony thorax is unremarkable. IMPRESSION: NORMAL PORTABLE CHEST. Final Report Signing Physician: Mark Goddard M.D. Date Signed: 11/02/2019 12:10 * Exam Date Time Procedure Performing Provider Status 11/02/19 12:14 PM US Lower Extremity Veins Bilateral H Gretel gifford; Modified Notes: (US Lower Extremity Veins Bilateral) Reason For Exam: Chest Pain US Lower Extremity Veins Bilateral US Lower Extremity Veins Bilateral HISTORY: Chest Pain. COMPARISON: None. TECHNIQUE: Real-time ultrasound examination of the bilateral lower extremity venous system was performed and reviewed on a PACS work station. FINDINGS: There is no evidence of deep venous thrombosis within the bilateral common femoral, superficial femoral or popliteal veins. All vessels compress and augment normally. The visualized calf veins are patent. No evidence of superficial venous thrombus. Cystic nonvascular lesion right popliteal fossa shannon suring 3.1 x 0.9 x 3.5 cm likely represents a Cavazos's cyst. IMPRESSION: NO EVIDENCE OF DEEP VENOUS THROMBOSIS IN THE BILATERAL LOWER EXTREMITIES. 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 Final Report Signing Physician: Mark Goddard M.D. Date Signed: 11/02/2019 12:15 Vital Signs Most recent to oldest [Reference Range]: 1 2 3 Heart Rate [60-100 bpm] 78 bpm (11/03/19 7:30 AM) 64 bpm (11/03/19 6:16 AM) 57 bpm *LOW* (11/03/19 4:00 AM) Mean Arterial Pressure Non-Invasive [50-150 mmHg] 97 mmHg (11/03/19 7:30 AM) 65 mmHg (11/03/19 4:00 AM) 74 mmHg (11/02/19 10:35 PM) Oxygen Saturation [92-100 %] 100 % (11/03/19 7:30 AM) 96 % (11/03/19 6:16 AM) 95 % (11/03/19 4:00 AM) Respiratory Rate [12-20 br/min] 18 br/min (11/03/19 7:30 AM) 16 br/min (11/03/19 6:16 AM) 18 br/min (11/03/19 4:00 AM) Blood Pressure [90-160/60-90 mmHg] 131/85mmHg (11/03/19 7:30 AM) 112/60mmHg (11/03/19 6:16 AM) 104/53mmHg (11/03/19 4:00 AM) Temperature Oral [96-99.9 DegF] 97.7 DegF (11/03/19 7:30 AM) 98.1 DegF (11/03/19 6:16 AM) 97.8 DegF (11/03/19 4:00 AM) Height 73 inch (11/02/19 11:28 AM) Weight 89 kg (11/02/19 11:28 AM) Social History Social History Type Response Sex Male
--- OUTSIDE RECORDS SUMMARY | 2024-07-06 18:00 | XMS_ITS | Continuity of Care Document ---
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
--- OUTSIDE RECORDS SUMMARY | 2024-07-06 18:00 | XMS_ITS | Continuity of Care Document ---
Author Organization [facility] Address [address] [place] [address] Phone Support Name Relationship Address Phone Karri Quigley Family/Other [address] [place] [address] Pcp-Md Gaurav Primary Care Provider Unknown Unavai lable Hedy Gonzalez Emergency Provider [facility] [place] [address] Tani Davis Other Provider [address] [place] [address] Jatinder Quispe Emergency Provider Unknown Unavai lable [...] 05, 2020 2:52pm 7.5 X10 3/uL 4.5-11.0 [facility], [address] [facility] [address] White Blood Count February 13, 2020 9:54pm 10.3 X10 3/uL 4.5-11.0 [facility], [address] [place] [address] Red Blood Count February 05, 2020 2:52pm 4.99 X10 6/uL 4.00-5.50 [facility], [address] [place] [address] Red Blood Count February 13, 2020 9:54pm 4.16 X10 6/uL 4.00-5.50 [facility], [address] [place] [address] Hemoglobin February 05, 2020 2:52pm 15.4 g/dl 12.0-17.0 [facility], [address] [place] [address] Hemoglobin February 13, 2020 9:54pm 12.9 g/dl 12.0-17.0 [facility], [address] [place] [address] Hematocrit February 05, 2020 2:52pm 45.8 % 35.0-50.0 [facility], [address] [place] [address] Hematocrit February 13, 2020 9:54pm 37.6 % 35.0-50.0 [facility], [address] [place] [address] Mean Corpuscular Volume February 05, 2020 2:52pm 91.8 fl 80.0-100.0 [facility], [address] [place] [address] Mean Corpuscular Volume February 13, 2020 9:54pm 90.4 fl 80.0-100.0 [facility], [address] [place] [address] Mean Corpuscular Hemoglobin February 05, 2020 2:52pm 30.9 pg 27.0-34.0 [facility], [address] [place] [address] Mean Corpuscular Hemoglobin February 13, 2020 9:54pm 31.0 pg 27.0-34.0 [facility], [address] [place] [address] 29766 Mean Corpuscular Hemoglobin Concent February 05, 2020 2:52pm 33.6 g/dl 31.0-36.0 [facility], [address] [place] [address] Mean Corpuscular Hemoglobin Concent February 13, 2020 9:54pm 34.3 g/dl 31.0-36.0 [facility], [address] [place] [address] Red Cell Distribution Width February 05, 2020 2:52pm 12.6 % 11.5-15.0 [facility], [address] [place] [address] Red Cell Distribution Width February 13, 2020 9:54pm 12.6 % 11.5-15.0 [facility], [address] [place] [address] 95690 Platelet Count February 05, 2020 2:52pm 237 X10 3/uL 150-400 [facility], [address] [place] [address] Platelet Count February 13, 2020 9:54pm 224 X10 3/uL 150-400 [facility], [address] [place] [address] 77[address] Immature Granulocyte % (Auto) February 05, 2020 2:52pm 0.4 % [facility], [address] [facility] [address] Immature Granulocyte % (Auto) February 13, 2020 9:54pm 0.2 % [facility], [address] [place] [address] 14324 Neutrophils (%) (Auto) February 05, 2020 2:52pm 70.7 % [facility], [address] [facility] [address] Neutrophils (%) (Auto) February 13, 2020 9:54pm 77.8 % [facility], [address] [place] [address] Lymphocytes (%) (Auto) February 05, 2020 2:52pm 18.6 % [facility], [address] [facility] [address] Lymphocytes (%) (Auto) February 13, 2020 9:54pm 12.1 % [facility], [address] [place] [address] Monocytes (%) (Auto) February 05, 2020 2:52pm 6.5 % [facility], [address] [facility] [address] Monocytes (%) (Auto) February 13, 2020 9:54pm 6.9 % [facility], [address] [place] [address] Eosinophils (%) (Auto) February 05, 2020 2:52pm 2.5 % [facility], [address] [facility] [address] Eosinophils (%) (Auto) February 13, 2020 9:54pm 2.2 % [facility], [address] [place] [address] Basophils (%) (Auto) February 05, 2020 2:52pm 1.3 % [facility], [facility] [address] Basophils (%) (Auto) February 13, 2020 9:54pm 0.8 % [facility], [address] [place] [address] Immature Granulocyte # (Auto) February 05, 2020 2:52pm 0.03 X10 3/uL 0.00-0.09 [facility], [address] [facility] [address] Immature Granulocyte # (Auto) February 13, 2020 9:54pm 0.02 X10 3/uL 0.00-0.09 [facility], [address] [place] [address] Neutrophils # (Auto) February 05, 2020 2:52pm 5.3 X10 3/uL 1.5-7.8 [facility], [address] [facility] [address] Neutrophils # (Auto) February 13, 2020 9:54pm 8.0 X10 3/uL 1.5-7.[address] [address] Lymphocytes # (Auto) February 05, 2020 2:52pm 1.4 X10 3/uL 1.0-4.8 [facility], [address] [facility] [address] Lymphocytes # (Auto) February 13, 2020 9:54pm 1.3 X10 3/uL 1.0-4.8 [facility], [address] [place] [address] Monocytes # (Auto) February 05, 2020 2:52pm 0.5 X10 3/uL 0.0-0.8 [facility], [address] [facility] [address] Monocytes # (Auto) February 13, 2020 9:54pm 0.7 X10 3/uL 0.0-0.8 [facility], [address] [place] [address] Eosinophils # (Auto) February 05, 2020 2:52pm 0.2 X10 3/uL 0.0-0.5 [facility], [address] [facility] [address] Eosinophils # (Auto) February 13, 2020 9:54pm 0.2 X10 3/uL 0.0-0.5 [facility], [address] [place] [address] Basophils # (Auto) February 05, 2020 2:52pm 0.1 X10 3/uL 0.0-0.2 [facility], [address] [facility] [address] Basophils # (Auto) February 13, 2020 9:54pm 0.1 X10 3/uL 0.0-0.2 [facility], [address] [place] [address] Nucleated Red Blood Cells % February 05, 2020 2:52pm 0.0 /100 WBC 0.0-0.0 [facility], [address] [facility] [address] Nucleated Red Blood Cells % February 13, 2020 9:54pm 0.0 /100 WBC 0.0-0.0 [facility], [address] [place] [address] Urine Color February 05, 2020 3:07pm Yellow Yellow [facility], [address] [facility] [address] Urine Clarity February 05, 2020 3:07pm Hazy Clear [facility] [place], [address] [place] [address] Urine pH February 05, 2020 3:07pm 7.0 5.0-8.0 [facility], [address] [place] [address] Urine Specific Welsh February 05, 2020 3:07pm 1.010 1.003-1.03 0 [facility], [address] [place] [address] Urine Blood February 05, 2020 3:07pm Negative mg/dl Negative [facility], [address] [place] [address] Urine Protein February 05, 2020 3:07pm Negative mg/dl Negative [facility], [address] [place] [address] Urine Glucose (UA) February 05, 2020 3:07pm Negative mg/dl Negative [facility], [address] [place] [address] Urine Ketones February 05, 2020 3:07pm Negative mg/dl Negative [facility] [place], [address] [place] [address] Urine Nitrate February 05, 2020 3:07pm Negative Negative [facility], [address] [place] [address] Urine Bilirubin February 05, 2020 3:07pm Negative mg/dl Negative [facility], [address] [place] [address] Urine Urobilinogen February 05, 2020 3:07pm Normal mg/dl Normal [facility] [place], [address] [place] [address] Urine Leukocyte Esterase February 05, 2020 3:07pm Small Negative [facility], [address] [place] [address] Urine Microscopic Indicated February 05, 2020 3:07pm . [facility] [place], [address] [place] [address] Urine Red Cell Clumps February 05, 2020 3:07pm Soubrette [facility], [address] [place] [address] Urine WBC February 05, 2020 3:07pm 2 /hpf 0-5 [facility], [address] [place] [address] Sodium Level February 05, 2020 2:52pm 134 mmol/L 137-146 [facility], [address] [facility] [address] Sodium Level February 13, 2020 9:54pm 140 mmol/L 137-146 [facility], [address] [place] [address] 52967 Potassium Level February 05, 2020 2:52pm 3.9 mmol/L 3.5-5.3 [facility], [address] [facility] [address] Potassium Level February 13, 2020 9:54pm 3.8 mmol/L 3.5-5.3 [facility], [address] [place] [address] 69546 Chloride Level February 05, 2020 2:52pm 97 mmol/L 98-107 [facility], [address] [facility] [address] Chloride Level February 13, 2020 9:54pm 103 mmol/L 98-107 [facility], [address] [place] [address] 95381 Carbon Dioxide Level February 05, 2020 2:52pm 22 mmol/L 23-32 [facility], [address] [facility] [address] Carbon Dioxide Level February 13, 2020 9:54pm 25 mmol/L 23-32 [facility], [address] [place] [address] 37926 Anion Gap February 05, 2020 2:52pm 15 mmol/L - [facility], [address] [facility] [address] Anion Gap February 13, 2020 9:54pm 13 mmol/L 03-30 [facility], [address] [place] [address] 28914 Blood Urea Nitrogen February 05, 2020 2:52pm 19 mg/dl - [facility], [address] [place] [address] Blood Urea Nitrogen February 13, 2020 9:54pm 21 mg/dl 5-25 [facility], [address] [place] [address] 88403 Creatinine February 05, 2020 2:52pm 0.9 mg/dL 0.6-1.4 [facility], [address] [place] [address] Creatinine February 13, 2020 9:54pm 0.9 mg/dL 0.6-1.4 [facility], [address] [place] [address] 28155 Estimated Creatinine Clearance February 05, 2020 2:52pm 105.6 ml/min This value is calculated by Cockcroft Gault Equation using ideal body weight. This result is dependent on an accurate patient height and weight which is obtained from patients medical record. Jessi Morillo. and M.H. Etta. Prediction of creatinine clearance from serum creatinine. Nephron. 1976. 16(1):31-41. [facility], [address] [place] [address] Estimated Creatinine Clearance February 13, 2020 9:54pm Soubrette Unable to Calculate CRCL,Ht and/or Wt missing [facility], [address] [place] [address] 21204 Estimated GFR () February 05, 2020 2:52pm > 60 >60 [facility], [address] [facility] [address] Estimated GFR () February 13, 2020 9:54pm > 60 >60 [facility], [address] [place] [address] 15885 Estimated GFR (Non- February 05, 2020 2:52pm > 60 >60 [facility], [address] [facility] [address] Estimated GFR (Non- February 13, 2020 9:54pm > 60 >60 [facility], [address] [place] [address] 31505 BUN/Creatinine Ratio February 05, 2020 2:52pm 21.1 10.0-20.0 [facility], [address] [facility] [address] BUN/Creatinine Ratio February 13, 2020 9:54pm 23.3 10.0-20.0 [facility], [address] [place] [address] 69917 Glucose Level February 05, 2020 2:52pm 100 mg/dL 70-100 [facility], [address] [place] [address] Glucose Level February 13, 2020 9:54pm 115 mg/dL 70-100 [facility], [address] [place] [address] 02415 Calcium Level February 05, 2020 2:52pm 9.7 mg/dl 8.6-10.3 [facility], [address] [facility] [address] Calcium Level February 13, 2020 9:54pm 9.0 mg/dl 8.6-10.3 [facility], [address] [place] [address] 27837 Total Bilirubin February 05, 2020 2:52pm 0.4 mg/dl <1.2 [facility], [address] [place] [address] Aspartate Amino Transf (AST/SGOT) February 05, 2020 2:52pm 28 U/L 15-41 Specimen hemolyzed, results affected, evaluate with caution. [facility], [address] [place] [address] Alanine Aminotransfera se (ALT/SGPT) February 05, 2020 2:52pm 21 U/L 14-63 [facility], [address] [place] [address] Total Protein February 05, 2020 2:52pm 7.9 g/dL 6.4-8.3 [facility], [address] [place] [address] Albumin February 05, 2020 2:52pm 4.9 g/dl 4.0-5.0 [facility], [address] [place] [address] Albumin/Globul in Ratio February 05, 2020 2:52pm 1.6 1.0-2.6 [facility], [address] [place] [address] Alkaline Phosphatase February 05, 2020 2:52pm 131 U/L 40-129 [facility], [address] [place] [address] Urine Amphetamines Screen February 05, 2020 3:07pm Positive Negative Confirmation by GC/MS not routinely performed for Non-Maternity locations. If confirmation is required, an order must be placed.Amphetami erwin Cutoff level 1000 ng/mL. [facility], [address] [place] [address] Urine Amphetamines Screen February 13, 2020 9:30pm Positive Negative Confirmation by GC/MS not routinely performed for Non-Maternity locations. If confirmation is required, an order must be placed.Amphetami erwin Cutoff level 1000 ng/mL. [facility], [address] [place] [address] 18901 Urine Methadone Screen February 05, 2020 3:07pm Negative Negative Methadone Cutoff level 300 ng/mL [facility], [address] [place] [address] Urine Methadone Screen February 13, 2020 9:30pm Negative Negative Methadone Cutoff level 300 ng/mL [address] [address] Urine Oxycodone Screen February 05, 2020 3:07pm Negative Negative Oxycontin/Oxycod one Cutoff level 100 ng/mL [facility], [address] [place] [address] Urine Oxycodone Screen February 13, 2020 9:30pm Negative Negative Oxycontin/Oxycod one Cutoff level 100 ng/mL [address] [address] Urine Buprenorphine Screen February 05, 2020 3:07pm Negative Negative Buprenorphine Cutoff level 5 ng/mL [facility], [address] [place] [address] Urine Buprenorphine Screen February 13, 2020 9:30pm Negative Negative Buprenorphine Cutoff level 5 ng/mL [address] [address] Salicylates Level February 13, 2020 9:54pm < 1.0 mg/dL Salicylate Reference Range: Negative <1.0 mg/dL Therapeutic Range: 2.0-20.0 mg/dL [address] [address] Urine Opiates Screen February 05, 2020 3:07pm Negative Negative Opiate Cutoff level 300 ng/mLOxycontin/O xycodone is not detected below the threshold of20,000 ng/mL [facility], [address] [facility] [address] Urine Opiates Screen February 13, 2020 9:30pm Negative Negative Opiate Cutoff level 300 ng/mLOxycontin/O xycodone is not detected below the threshold of20,000 ng/mL [address] [address] Urine Fentanyl Screen February 05, 2020 3:07pm Negative Negative Fentanyl Cutoff level 2.0 ng/mL [facility], [address] [facility] [address] Urine Fentanyl Screen February 13, 2020 9:30pm Negative Negative Fentanyl Cutoff level 2.0 ng/mL [address] [address] Acetaminophen Level February 13, 2020 9:54pm < 5 ug/mL Acetaminophen Reference Range: Negative <5 ug/mL [address] [address] Urine Benzodiazepine s Screen February 05, 2020 3:07pm Negative Negative Please note that the current method for benzodiazepines may be less sensitive to lorazapam detection than previously. If this result is negative and you are concerned about a false negative result for lorazepam, additional testing is possible. Please contact the laboratory.Benzo diazepine Cutoff level 200 ng/mL [facility], [address] [facility] [address] Urine Benzodiazepine s Screen February 13, 2020 9:30pm Negative Negative Please note that the current method for benzodiazepines may be less sensitive to lorazapam detection than previously. If this result is negative and you are concerned about a false negative result for lorazepam, additional testing is possible. Please contact the laboratory.Benzo diazepine Cutoff level 200 ng/mL [address] [place] [address] Urine Cocaine Screen February 05, 2020 3:07pm Negative Negative Cocaine Cutoff level 300 ng/mL [facility], [address] [facility] [address] Urine Cocaine Screen February 13, 2020 9:30pm Negative Negative Cocaine Cutoff level 300 ng/mL [facility], [address] [place] [address]16 Urine Cannabinoids Screen February 05, 2020 3:07pm [...] physiological pH range of 5 - 8. [facility], [address] [facility] [address] Urine Cannabinoids Screen February 13, 2020 9:30pm [...] physiological pH range of 5 - 8. [facility], [address] [place] [address] 67896 Serum Alcohol February 05, 2020 2:52pm < 10 mg/dl <10 [facility], [address] [facility] [address] Serum Alcohol February 13, 2020 9:54pm < 10 mg/dl <10 [facility], [address] [place] [address]011 Microbiology Results Procedure Source Result Collection Date/Time Result Date/Time Result Comment Performing Site Urine Culture Urine,Clean Catch February 05, 2020 3:29pm February 07, 2020 10:55am [facility], [address] [facility] [address] Advance Directives Advance Directive Response Recorded Date/ Time Advance Directives No February 04 6:30pm Health Care Proxy No February 04 8:59pm Advance Directives No February 13 12:43am Health Care Proxy No February 13 4:30am Chief Complaint and Reason for Visit Chief Complaint PSYCH EVAL Encounters Encounter Location(s) Arrival/Admit Date Discharge/Depart Date Provider(s) Departed Emergency [facility]- Emergency Room Department February 05, 2020 2:30pm February 05, 2020 5:58pm null Departed Emergency [facility]-Emergency Dept February 13, 2020 8:41pm February 14, 2020 7:58am null Assessments No Assessments Information Available Functional Status No Functional Status information available Goals Acute Goals These follow-up with your [facility] physician or with the [facility] first available appointment. Please find fpc, it is supposed to snow in the [...] available Insurance Providers Guarantor Tez Quigley Address [address] [place] [address] [address] [place] [id number] Contact Info. Home Phone: Payer Policy Id Coverage Id Subscriber's Name Subscriber Id Effective Date Expiration Date Legal VeteransAdministrati on [id number] Tez Quigley [id number] Medicare A Medicare A&B [id number] Tez Quigley [id number] Self Pay Self N/A Plan of Treatment Future Tests Future scheduled test information is unavailable Pending Tests Pending diagnostic test information is unavailable Future Visits Future appointment information is unavailable Referrals to Other Providers Reason for Referral Referral Start Date Provider Provider Contact Information Provider Address Pcp-None Referral Line Kloud[employer] Phone: [facility] Future Procedures Future procedure information is unavailable Future Medications Future medication information is unavailable Patient Instructions PTSD Coping TBI Anxiety ED Stress React ED Manic Depression Social History Smoking Status Status Date of Observation Smokes tobacco daily (finding) January 9:46pm Observation Status Observation Response Date of Response Living Situation Homeless February 04 0 8:59pm Other Living Situation Pt states he lives in [place]. February 05, 2020 6:50pm Lives With Alone [...]
--- OUTSIDE RECORDS SUMMARY | 2024-07-06 18:00 | XMS_ITS | Continuity of Care Document ---
Author Organization [facility] Address [address] [place] [address] Phone Care Team Providers Care Environmental Field Technician Name Role Phone NONE, * Family Provider [...] Arrival/Admit Date Discharge/Depart Date Provider(s) Departed Emergency [facility]-Emergenc y Dept Outpatient February 05, 2021 [...]
--- OUTSIDE RECORDS SUMMARY | 2024-07-06 18:00 | XMS_ITS | Continuity of Care Document ---
Author Organization [facility] Address [address] [place] [address] Phone Support Name Relationship Address Phone Karri Quigley Family/Other [address] [place] [address] Pcp-Md Gaurav Primary Care Provider Unknown Unavai lable Hedy Gonzalez Emergency Provider [facility] [place] [address] Tani Davis Other Provider [address] [place] [address] Jatinder Quispe Emergency Provider Unknown Unavai lable [...] 05, 2020 2:52pm 7.5 X10 3/uL 4.5-11.0 [facility], [address] [facility] [address] White Blood Count February 13, 2020 9:54pm 10.3 X10 3/uL 4.5-11.0 [facility], [address] [place] [address] 47726 Red Blood Count February 05, 2020 2:52pm 4.99 X10 6/uL 4.00-5.50 [facility], [address] [place] [address] Red Blood Count February 13, 2020 9:54pm 4.16 X10 6/uL 4.00-5.50 [facility], [address] [place] [address] 51307 Hemoglobin February 05, 2020 2:52pm 15.4 g/dl 12.0-17.0 [facility], [address] [place] [address] Hemoglobin February 13, 2020 9:54pm 12.9 g/dl 12.0-17.0 [facility], [address] [place] [address] 24875 Hematocrit February 05, 2020 2:52pm 45.8 % 35.0-50.0 [facility], [address] [place] [address] Hematocrit February 13, 2020 9:54pm 37.6 % 35.0-50.0 [facility], [address] [place] [address] 51419 Mean Corpuscular Volume February 05, 2020 2:52pm 91.8 fl 80.0-100.0 [facility], [address] [place] [address] Mean Corpuscular Volume February 13, 2020 9:54pm 90.4 fl 80.0-100.0 [facility], [address] [place] [address]94[address] Mean Corpuscular Hemoglobin February 05, 2020 2:52pm 30.9 pg 27.0-34.0 [facility], [address] [place] [address] Mean Corpuscular Hemoglobin February 13, 2020 9:54pm 31.0 pg 27.0-34.0 [facility], [address] [place] [address] 81465 Mean Corpuscular Hemoglobin Concent February 05, 2020 2:52pm 33.6 g/dl 31.0-36.0 [facility], [address] [place] [address] Mean Corpuscular Hemoglobin Concent February 13, 2020 9:54pm 34.3 g/dl 31.0-36.0 [facility], [address] [place] [address]69[address] Red Cell Distribution Width February 05, 2020 2:52pm 12.6 % 11.5-15.0 [facility], [address] [place] [address] Red Cell Distribution Width February 13, 2020 9:54pm 12.6 % 11.5-15.0 [facility], [address] [place] [address] 32157 Platelet Count February 05, 2020 2:52pm 237 X10 3/uL 150-400 [facility], [address] [place] [address] Platelet Count February 13, 2020 9:54pm 224 X10 3/uL 150-400 [facility], [address] [place] [address]17[address] Immature Granulocyte % (Auto) February 05, 2020 2:52pm 0.4 % [facility], [address] [facility] [address] Immature Granulocyte % (Auto) February 13, 2020 9:54pm 0.2 % [facility], [address] [place] [address] 42637 Neutrophils (%) (Auto) February 05, 2020 2:52pm 70.7 % [facility], [address] [facility] [address] Neutrophils (%) (Auto) February 13, 2020 9:54pm 77.8 % [facility], [address] [place] [address]992 Lymphocytes (%) (Auto) February 05, 2020 2:52pm 18.6 % [facility], [address] [facility] [address] Lymphocytes (%) (Auto) February 13, 2020 9:54pm 12.1 % [facility], [address] [place] [address] 10384 Monocytes (%) (Auto) February 05, 2020 2:52pm 6.5 % [facility], [address] [facility] [address] Monocytes (%) (Auto) February 13, 2020 9:54pm 6.9 % [facility], [address] [place] [address] 36605 Eosinophils (%) (Auto) February 05, 2020 2:52pm 2.5 % [facility] [address] [facility] [address] Eosinophils (%) (Auto) February 13, 2020 9:54pm 2.2 % [facility], [address] [place] [address] 779[address] Basophils (%) (Auto) February 05, 2020 2:52pm 1.3 % [facility] [address] [facility] [address] Basophils (%) (Auto) February 13, 2020 9:54pm 0.8 % [facility], [address] [place] [address] 29182 Immature Granulocyte # (Auto) February 05, 2020 2:52pm 0.03 X10 3/uL 0.00-0.09 [facility], [address] [facility] [address] Immature Granulocyte # (Auto) February 13, 2020 9:54pm 0.02 X10 3/uL 0.00-0.09 [facility], [address] [place] [address] 87509 Neutrophils # (Auto) February 05, 2020 2:52pm 5.3 X10 3/uL 1.5-7.8 [facility], [address] [facility] [address] Neutrophils # (Auto) February 13, 2020 9:54pm 8.0 X10 3/uL 1.5-7.[address] [address] Lymphocytes # (Auto) February 05, 2020 2:52pm 1.4 X10 3/uL 1.0-4.8 [facility], [address] [facility] [address] Lymphocytes # (Auto) February 13, 2020 9:54pm 1.3 X10 3/uL 1.0-4.8 [facility], [address] [place] [address] 91210 Monocytes # (Auto) February 05, 2020 2:52pm 0.5 X10 3/uL 0.0-0.8 [facility], [address] [facility] [address] Monocytes # (Auto) February 13, 2020 9:54pm 0.7 X10 3/uL 0.0-0.8 [facility], [address] [place] [address] 52189 Eosinophils # (Auto) February 05, 2020 2:52pm 0.2 X10 3/uL 0.0-0.5 [facility], [address] [facility] [address] Eosinophils # (Auto) February 13, 2020 9:54pm 0.2 X10 3/uL 0.0-0.5 [facility], [address] [place] [address] 87759 Basophils # (Auto) February 05, 2020 2:52pm 0.1 X10 3/uL 0.0-0.2 [facility], [address] [facility] [address] Basophils # (Auto) February 13, 2020 9:54pm 0.1 X10 3/uL 0.0-0.2 [facility], [address] [place] [address] 669[address] Nucleated Red Blood Cells % February 05, 2020 2:52pm 0.0 /100 WBC 0.0-0.0 [facility], [address] [facility] [address] Nucleated Red Blood Cells % February 13, 2020 9:54pm 0.0 /100 WBC 0.0-0.0 [facility], [address] [place] [address] 68258 Urine Color February 05, 2020 3:07pm Yellow Yellow [facility], [address] [facility] [address] Urine Clarity February 05, 2020 3:07pm Hazy Clear [facility], [address] [place] [address] Urine pH February 05, 2020 3:07pm 7.0 5.0-8.0 [facility], [address] [place] [address] Urine Specific [place] February 05, 2020 3:07pm 1.010 1.003-1.03 0 [facility], [address] [place] [address] Urine Blood February 05, 2020 3:07pm Negative mg/dl Negative [facility], [address] [place] [address] Urine Protein February 05, 2020 3:07pm Negative mg/dl Negative [facility], [address] [place] [address] Urine Glucose (UA) February 05, 2020 3:07pm Negative mg/dl Negative [facility], [address] [place] [address] Urine Ketones February 05, 2020 3:07pm Negative mg/dl Negative [facility], [address] [place] [address] Urine Nitrate February 05, 2020 3:07pm Negative Negative [facility], [address] [place] [address] Urine Bilirubin February 05, 2020 3:07pm Negative mg/dl Negative [facility], [address] [place] [address] Urine Urobilinogen February 05, 2020 3:07pm Normal mg/dl Normal [facility], [address] [place] [address] Urine Leukocyte Esterase February 05, 2020 3:07pm Small Negative [facility], [address] [place] [address] Urine Microscopic Indicated February 05, 2020 3:07pm . [facility], [address] [place] [address] Urine Red Cell Clumps February 05, 2020 3:07pm [employer] [facility], [address] [place] [address] Urine WBC February 05, 2020 3:07pm 2 /hpf 0-5 [facility], [address] [place] [address] Sodium Level February 05, 2020 2:52pm 134 mmol/L 137-146 [facility], [address] [facility] [address] Sodium Level February 13, 2020 9:54pm 140 mmol/L 137-146 [facility], [address] [place] [address] 65186 Potassium Level February 05, 2020 2:52pm 3.9 mmol/L 3.5-5.3 [facility], [address] [facility] [address] Potassium Level February 13, 2020 9:54pm 3.8 mmol/L 3.5-5.3 [facility], [address] [place] [address] 18017 Chloride Level February 05, 2020 2:52pm 97 mmol/L 98-107 [facility], [address] [facility] [address] Chloride Level February 13, 2020 9:54pm 103 mmol/L 98-107 [facility], [address] [place] [address] 44137 Carbon Dioxide Level February 05, 2020 2:52pm 22 mmol/L 23-32 [facility], [address] [facility] [address] Carbon Dioxide Level February 13, 2020 9:54pm 25 mmol/L 23-32 [facility], [address] [place] [address] 27536 Anion Gap February 05, 2020 2:52pm 15 mmol/L - [facility], [address] [facility] [address] Anion Gap February 13, 2020 9:54pm 13 mmol/L 03-30 [facility], [address] [place] [address] 03836 Blood Urea Nitrogen February 05, 2020 2:52pm 19 mg/dl - [facility], [address] [place] [address] Blood Urea Nitrogen February 13, 2020 9:54pm 21 mg/dl 5-25 [facility], [address] [place] [address] 31793 Creatinine February 05, 2020 2:52pm 0.9 mg/dL 0.6-1.4 [facility], [address] [place] [address] Creatinine February 13, 2020 9:54pm 0.9 mg/dL 0.6-1.4 [facility], [address] [place] [address] 80797 Estimated Creatinine Clearance February 05, 2020 2:52pm 105.6 ml/min This value is calculated by Cockcroft Gault Equation using ideal body weight. This result is dependent on an accurate patient height and weight which is obtained from patients medical record. Jessi Morillo. and M.H. Etta. Prediction of creatinine clearance from serum creatinine. Nephron. 1976. 16(1):31-41. [facility], [address] [place] [address] Estimated Creatinine Clearance February 13, 2020 9:54pm [employer] Unable to Calculate CRCL,Ht and/or Wt missing [facility], [address] [place] [address] 56185 Estimated GFR () February 05, 2020 2:52pm > 60 >60 [facility], [address] [facility] [address] Estimated GFR () February 13, 2020 9:54pm > [address] >[address] [facility], [address] [place] [address] 33449 Estimated GFR (Non- February 05, 2020 2:52pm > 60 >60 [facility], [address] [facility] [address] Estimated GFR (Non- February 13, 2020 9:54pm > [address] [facility], [address] [place] [address] 55244 BUN/Creatinine Ratio February 05, 2020 2:52pm 21.1 10.0-20.0 [facility], [address] [facility] [address] BUN/Creatinine Ratio February 13, 2020 9:54pm 23.3 10.0-20.0 [facility], [address] [place] [address] 43495 Glucose Level February 05, 2020 2:52pm 100 mg/dL 70-100 [facility], [address] [place] [address] Glucose Level February 13, 2020 9:54pm 115 mg/dL 70-100 [facility], [address] [place] [address] 90856 Calcium Level February 05, 2020 2:52pm 9.7 mg/dl 8.6-10.3 [facility], [address] [facility] [address] Calcium Level February 13, 2020 9:54pm 9.0 mg/dl 8.6-10.3 [facility], [address] [place] [address] 76367 Total Bilirubin February 05, 2020 2:52pm 0.4 mg/dl <1.2 [facility], [address] [address] Aspartate Amino Transf (AST/SGOT) February 05, 2020 2:52pm 28 U/L 15-41 Specimen hemolyzed, results affected, evaluate with caution. [facility], [address] [place] [address] Alanine Aminotransfera se (ALT/SGPT) February 05, 2020 2:52pm 21 U/L 14-63 [facility], [address] [place] [address] Total Protein February 05, 2020 2:52pm 7.9 g/dL 6.4-8.3 [facility], [address] [place] [address] Albumin February 05, 2020 2:52pm 4.9 g/dl 4.0-5.0 [facility], [address] [address] Albumin/Globul in Ratio February 05, 2020 2:52pm 1.6 1.0-2.6 [facility] [address] [place] [address] Alkaline Phosphatase February 05, 2020 2:52pm 131 U/L 40-129 [facility], [address] [place] [address] Urine Amphetamines Screen February 05, 2020 3:07pm Positive Negative Confirmation by GC/MS not routinely performed for Non-Maternity locations. If confirmation is required, an order must be placed.Amphetami erwin Cutoff level 1000 ng/mL. [facility], [address] [place] [address] Urine Amphetamines Screen February 13, 2020 9:30pm Positive Negative Confirmation by GC/MS not routinely performed for Non-Maternity locations. If confirmation is required, an order must be placed.Amphetami erwin Cutoff level 1000 ng/mL. [facility], [address] [place] [address]156 Urine Methadone Screen February 05, 2020 3:07pm Negative Negative Methadone Cutoff level 300 ng/mL [facility], [address] [place] [address] Urine Methadone Screen February 13, 2020 9:30pm Negative Negative Methadone Cutoff level 300 ng/mL [address] [address] Urine Oxycodone Screen February 05, 2020 3:07pm Negative Negative Oxycontin/Oxycod one Cutoff level 100 ng/mL [facility], [address] [place] [address] Urine Oxycodone Screen February 13, 2020 9:30pm Negative Negative Oxycontin/Oxycod one Cutoff level 100 ng/mL [address] [address] Urine Buprenorphine Screen February 05, 2020 3:07pm Negative Negative Buprenorphine Cutoff level 5 ng/mL [facility], [address] [place] [address] Urine Buprenorphine Screen February 13, 2020 9:30pm Negative Negative Buprenorphine Cutoff level 5 ng/mL [address] [address] Salicylates Level February 13, 2020 9:54pm < 1.0 mg/dL Salicylate Reference Range: Negative <1.0 mg/dL Therapeutic Range: 2.0-20.0 mg/dL [address] [address] Urine Opiates Screen February 05, 2020 3:07pm Negative Negative Opiate Cutoff level 300 ng/mLOxycontin/O xycodone is not detected below the threshold of20,000 ng/mL [facility], [address] [facility] [address] Urine Opiates Screen February 13, 2020 9:30pm Negative Negative Opiate Cutoff level 300 ng/mLOxycontin/O xycodone is not detected below the threshold of20,000 ng/mL [address] [address] Urine Fentanyl Screen February 05, 2020 3:07pm Negative Negative Fentanyl Cutoff level 2.0 ng/mL [facility], [address] [facility] [address] Urine Fentanyl Screen February 13, 2020 9:30pm Negative Negative Fentanyl Cutoff level 2.0 ng/mL [address] [address] Acetaminophen Level February 13, 2020 9:54pm < 5 ug/mL Acetaminophen Reference Range: Negative <5 ug/mL [address] [address] Urine Benzodiazepine s Screen February 05, 2020 3:07pm Negative Negative Please note that the current method for benzodiazepines may be less sensitive to lorazapam detection than previously. If this result is negative and you are concerned about a false negative result for lorazepam, additional testing is possible. Please contact the laboratory.Benzo diazepine Cutoff level 200 ng/mL [facility], [address] [facility] [address] Urine Benzodiazepine s Screen February 13, 2020 9:30pm Negative Negative Please note that the current method for benzodiazepines may be less sensitive to lorazapam detection than previously. If this result is negative and you are concerned about a false negative result for lorazepam, additional testing is possible. Please contact the laboratory.Benzo diazepine Cutoff level 200 ng/mL [address] [place] [address] Urine Cocaine Screen February 05, 2020 3:07pm Negative Negative Cocaine Cutoff level 300 ng/mL [facility], [address] [facility] [address] Urine Cocaine Screen February 13, 2020 9:30pm Negative Negative Cocaine Cutoff level 300 ng/mL [facility], [address] [place] [address] 36486 Urine Cannabinoids Screen February 05, 2020 3:07pm [...] physiological pH range of 5 - 8. [facility], [address] [facility] [address] Urine Cannabinoids Screen February 13, 2020 9:30pm [...] physiological pH range of 5 - 8. [facility], [address] [place] [address] 90374 Serum Alcohol February 05, 2020 2:52pm < 10 mg/dl <10 [facility], [address] [facility] [address] Serum Alcohol February 13, 2020 9:54pm < 10 mg/dl <10 [facility], [address] [place] [address] 43748 Microbiology Results Procedure Source Result Collection Date/Time Result Date/Time Result Comment Performing Site Urine Culture Urine,Clean Catch February 05, 2020 3:29pm February 07, 2020 10:55am [facility], [address] [facility] [address] Advance Directives Advance Directive Response Recorded Date/ Time Advance Directives No February 04 6:30pm Health Care Proxy No February 04 8:59pm Advance Directives No February 13 12:43am Health Care Proxy No February 13 4:30am Chief Complaint and Reason for Visit Chief Complaint PSYCH EVAL Encounters Encounter Location(s) Arrival/Admit Date Discharge/Depart Date Provider(s) Departed Emergency [facility] Department February 05, 2020 2:30pm February 05, 2020 5:58pm null Departed Emergency [facility]gency [facility] February 13, 2020 8:41pm February 14, 2020 7:58am null Assessments No Assessments Information Available Functional Status No Functional Status information available Goals Acute Goals These follow-up with your [facility] physician or with the [facility] first available appointment. Please find senior care, it is supposed to snow in the [...] available Insurance Providers Guarantor Tez Quigley Address [address] [place] [address] [address] [place] [address] Contact Info. Home Phone: Payer Policy Id Coverage Id Subscriber's Name Subscriber Id Effective Date Expiration Date Legal VeteransAdministrati on [id number] Tez Quigley [id number] Medicare A&B [id number] Tez Quigley [id number] Self Pay Self N/A Plan of Treatment Future Tests Future scheduled test information is unavailable Pending Tests Pending diagnostic test information is unavailable Future Visits Future appointment information is unavailable Referrals to Other Providers Reason for Referral Referral Start Date Provider Provider Contact Information Provider Address Pcp-None Referral Line [employer] Phone: [facility] Future Procedures Future procedure [...] Living Situation Pt states he lives in [place]. February 05, 2020 6:50pm Lives With Alone [...]
--- OUTSIDE RECORDS SUMMARY | 2024-07-06 18:00 | XMS_ITS | Continuity of Care Document ---
Author Organization [facility] Address [address] [place] [address] Phone Support Name Relationship Address Phone Karri Quigley Family/Other [address] [place] [address] Pcp-Gaurav, Primary Care Provider Unknown Hedy Billy Emergency Provider [facility] [address] Allergies, Adverse Reactions, Alerts Allergen Type Severity [...] Date Status PTSD (post-traumatic stress disorder) Active TBI (traumatic brain injury) Act sonny ADHD Active Inactive/Resolved Problems Medical Problem Onset Date Status Psychosis Resolved Procedures Procedure Date Performed Status Urine Culture February 05, 2020 active Relevant Diagnostic Tests and/or Laboratory Data Laboratory Results Test Date/Time Result Interpretation Reference Range Result Comment Performing Site White Blood Count February 05, 2020 2:52pm 7.5 X10 3/uL 4.5-11.[address] [address] Red Blood Count February 05, 2020 2:52pm 4.99 X10 6/uL 4.00-5.50 [place] [address] [facility] [facility] [address] Hemoglobin February 05, 2020 2:52pm 15.4 g/dl 12.0-17.0 [facility] [address] [place] [address] Hematocrit February 05, 2020 2:52pm 45.8 % 35.0-50.0 [facility] [place], [address] [place] [address] Mean Corpuscular Volume February 05, 2020 2:52pm 91.8 fl 80.0-100.0 [facility] [place], [address] [place] [address] Mean Corpuscular Hemoglobin February 05, 2020 2:52pm 30.9 pg 27.0-34.0 [facility], [address] [place] [address] Mean Corpuscular Hemoglobin Concent February 05, 2020 2:52pm 33.6 g/dl 31.0-36.0 [facility], [address] [place] [address] Red Cell Distribution Width February 05, 2020 2:52pm 12.6 % 11.5-15.0 [facility] [place], [address] [place] [address] Platelet Count February 05, 2020 2:52pm 237 X10 3/uL 150-400 [facility], [address] [place] [address] Immature Granulocyte % (Auto) February 05, 2020 2:52pm 0.4 % [facility], [address] [place] [address] Neutrophils (%) (Auto) February 05, 2020 2:52pm 70.7 % [facility], [address] [place] [address] Lymphocytes (%) (Auto) February 05, 2020 2:52pm 18.6 % [facility], [address] [place] [address] Monocytes (%) (Auto) February 05, 2020 2:52pm 6.5 % [facility], [address] [place] [address] Eosinophils (%) (Auto) February 05, 2020 2:52pm 2.5 % [facility], [address] [place] [address] Basophils (%) (Auto) February 05, 2020 2:52pm 1.3 % [facility], [address] [place] [address] Immature Granulocyte # (Auto) February 05, 2020 2:52pm 0.03 X10 3/uL 0.00-0.09 [facility], [address] [place] [address] Neutrophils # (Auto) February 05, 2020 2:52pm 5.3 X10 3/uL 1.5-7.8 [facility], [address] [place] [address] Lymphocytes # (Auto) February 05, 2020 2:52pm 1.4 X10 3/uL 1.0-4.8 [facility], [address] [place] [address] Monocytes # (Auto) February 05, 2020 2:52pm 0.5 X10 3/uL 0.0-0.8 [facility], [address] [place] [address] Eosinophils # (Auto) February 05, 2020 2:52pm 0.2 X10 3/uL 0.0-0.5 [facility], [address] [place] [address] Basophils # (Auto) February 05, 2020 2:52pm 0.1 X10 3/uL 0.0-0.2 [facility], [address] [place] [address] Nucleated Red Blood Cells % February 05, 2020 2:52pm 0.0 /100 WBC 0.0-0.0 [facility], [address] [place] [address] Urine Color February 05, 2020 3:07pm Yellow Yellow [facility], [address] [place] [address] Urine Clarity February 05, 2020 3:07pm Hazy Clear [facility] [place], [address] [place] [address] Urine pH February 05, 2020 3:07pm 7.0 5.0-8.0 [facility] [place], [address] [place] [address] Urine Specific [place] February 05, 2020 3:07pm 1.010 1.003-1.03 0 [facility] [place], [address] [place] [address] Urine Blood February 05, 2020 3:07pm Negative mg/dl Negative [facility] [place], [address] [place] [address] Urine Protein February 05, 2020 3:07pm Negative mg/dl Negative [facility] [place], [address] [place] [address] Urine Glucose (UA) February 05, 2020 3:07pm Negative mg/dl Negative [facility] [place], [address] [place] [address] Urine Ketones February 05, 2020 3:07pm Negative mg/dl Negative [facility] [place], [address] [place] [address] Urine Nitrate February 05, 2020 3:07pm Negative Negative [facility] [place], [address] [place] [address] Urine Bilirubin February 05, 2020 3:07pm Negative mg/dl Negative [facility] [place], [address] [place] [address] Urine Urobilinogen February 05, 2020 3:07pm Normal mg/dl Normal [facility] [place], [address] [place] [address] Urine Leukocyte Esterase February 05, 2020 3:07pm Small Negative [facility] [place], [address] [place] [address] Urine Microscopic Indicated February 05, 2020 3:07pm . [facility] [place], [address] [place] [address] Urine Red Cell Clumps February 05, 2020 3:07pm Associate Drafter [facility], [address] [place] [address] Urine WBC February 05, 2020 3:07pm 2 /hpf 0-5 [facility], [address] [place] [address] Sodium Level February 05, 2020 2:52pm 134 mmol/L 137-146 [facility], [address] [place] [address] Potassium Level February 05, 2020 2:52pm 3.9 mmol/L 3.5-5.3 [facility], [address] [place] [address] Chloride Level February 05, 2020 2:52pm 97 mmol/L 98-107 [facility], [address] [place] [address] Carbon Dioxide Level February 05, 2020 2:52pm 22 mmol/L 23-32 [facility], [address] [place] [address] Anion Gap February 05, 2020 2:52pm 15 mmol/L 5-15 [facility], [address] [place] [address] Blood Urea Nitrogen February 05, 2020 2:52pm 19 mg/dl 5-25 [facility], [address] [place] [address] Creatinine February 05, 2020 2:52pm 0.9 mg/dL 0.6-1.4 [facility], [address] [place] [address] Estimated Creatinine Clearance February 05, 2020 2:52pm 105.6 ml/min This value is calculated by Cockcroft Gault Equation using ideal body weight. This result is dependent on an accurate patient height and weight which is obtained from patients medical record. Jessi Morillo. and M.H. Etta. Prediction of creatinine clearance from serum creatinine. Nephron. 1976. 16(1):31-41. [facility], [address] [place] [address] Estimated GFR () February 05, 2020 2:52pm > 60 >60 [facility], [address] [place] [address] Estimated GFR (Non- February 05, 2020 2:52pm > 60 >60 [facility], [address] [place] [address] BUN/Creatinine Ratio February 05, 2020 2:52pm 21.1 10.0-20.0 [facility], [address] [place] [address] Glucose Level February 05, 2020 2:52pm 100 mg/dL 70-100 [facility], [address] [place] [address] Calcium Level February 05, 2020 2:52pm 9.7 mg/dl 8.6-10.3 [facility], [address] [place] [address] Total Bilirubin February 05, 2020 2:52pm 0.4 mg/dl <1.2 [facility], [address] [place] [address] Aspartate Amino Transf (AST/SGOT) February 05, 2020 2:52pm 28 U/L 15-41 Specimen hemolyzed, results affected, evaluate with caution. [facility], [address] [place] [address] Alanine Aminotransfera se (ALT/SGPT) February 05, 2020 2:52pm 21 U/L 14-63 [facility], [address] [place] [address] Total Protein February 05, 2020 2:52pm 7.9 g/dL 6.4-8.3 [facility], [address] [place] [address] Albumin February 05, 2020 2:52pm 4.9 g/dl 4.0-5.0 [facility], [address] [place] [address] Albumin/Globul in Ratio February 05, 2020 2:52pm 1.6 1.0-2.6 [facility], [address] [place] [address] Alkaline Phosphatase February 05, 2020 2:52pm 131 U/L 40-129 [facility] [address] [place] [address] Urine Amphetamines Screen February 05, 2020 3:07pm Positive Negative Confirmation by GC/MS not routinely performed for Non-Maternity locations. If confirmation is required, an order must be placed.Amphetami erwin Cutoff level 1000 ng/mL. [facility], [address] [place] [address] Urine Methadone Screen February 05, 2020 3:07pm Negative Negative Methadone Cutoff level 300 ng/mL [facility], [address] [place] [address] Urine Oxycodone Screen February 05, 2020 3:07pm Negative Negative Oxycontin/Oxycod one Cutoff level 100 ng/mL [facility], [address] [place] [address] Urine Buprenorphine Screen February 05, 2020 3:07pm Negative Negative Buprenorphine Cutoff level 5 ng/mL [facility], [address] [place] [address] Urine Opiates Screen February 05, 2020 3:07pm Negative Negative Opiate Cutoff level 300 ng/mLOxycontin/O xycodone is not detected below the threshold of20,000 ng/mL [facility], [address] [place] [address] Urine Fentanyl Screen February 05, 2020 3:07pm Negative Negative Fentanyl Cutoff level 2.0 ng/mL [facility], [address] [place] [address] Urine Benzodiazepine s Screen February 05, 2020 3:07pm Negative Negative Please note that the current method for benzodiazepines may be less sensitive to lorazapam detection than previously. If this result is negative and you are concerned about a false negative result for lorazepam, additional testing is possible. Please contact the laboratory.Benzo diazepine Cutoff level 200 ng/mL [facility], [address] [facility] [address] Urine Cocaine Screen February 05, 2020 3:07pm Negative Negative Cocaine Cutoff level 300 ng/mL [facility] [address] Urine Cannabinoids Screen February 05, 2020 3:07pm [...] physiological pH range of 5 - 8. [facility], [address] [facility] [address] Serum Alcohol February 05, 2020 2:52pm < 10 mg/dl <10 [facility] [address] [facility] [address] Advance Directives Advance Directive Response Recorded Date/ Time Advance Directives No February 04 6:30pm Health Care Proxy No February 04 8:59pm Encounters Encounter Location(s) Arrival/Admit Date Discharge/Depart Date Provider(s) Departed Emergency [facility] Emergency Room Department February 05, 2020 2:30pm February 05, 2020 5:58pm null Assessments No Assessments Information Available Functional Status No Functional Status information available Goals Acute Goals These follow-up with your [facility] physician or with the [facility] first available appointment. Please find custodial, it is supposed to snow in the next day or so. Return to the emergency room immediately for any failure to improve new onset symptoms or any worsening condition. Mental Status Observation Response Date Recorded Patient Behavior Cooperative February 04 0 8:59pm Anxious February 05, 2020 8:59pm Talkative February 05, 2020 8:59pm Medical Equipment No Medical Equipment Information available Insurance Providers Guarantor Tez Quigley Address [address] [place] [address] [address] [facility] [address] Contact Info. Home Phone: Payer Policy Id Coverage Id Subscriber's Name Subscriber Id Effective Date Expiration Date Legal VeteransAdministrati on [id number] Tez Quigley [id number] Medicare A&B [id number] Tez Quigley [id number] Self Pay Self N/A Plan of Treatment Future Tests Future scheduled test information is unavailable Pending Tests Pending diagnostic test information is unavailable Future Visits Future appointment information is unavailable Referrals to Other Providers Reason for Referral Referral Start Date Provider Provider Contact Information Provider Address Md Pcp-None Referral Line inTarvo Phone: [employer] [facility] Future Procedures Future procedure information is unavailable Future Medications Future medication information is unavailable Patient Instructions PTSD Coping TBI Anxiety ED Stress React Social History Smoking Status Status Date of Observation Smokes tobacco daily (finding) January 2:50pm Observation Status Observation Response Date of Response Lives With Alone February 05, 2020 4:59pm Assigned Sex Male Vital Signs Vital Reading Result Reference Range Collection Date/Time Height 177.8 cm February 04 0 6:50pm Weight 89.35 kg February 04 0 6:50pm Body Temperature 97.5 [degF] 97.6-99.6 February 05, 2020 2:50pm Heart Rate 69 /min 60-90 February 04 0 2:50pm Respiratory rate 16 /min 12-24 February 05, 2020 2:50pm Oxygen saturation by Pulse oximetry 98 % 95-100 February 05, 2020 2:5 0pm BP Systolic 179 mm[Hg] 90-140 February 04 0 2:50pm BP Diastolic 106 mm[Hg] 60-90 February 04 0 2:50pm BMI (Body Mass Index) 28.3 kg/m2 February 05, 2020 6:50pm
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
--- OUTSIDE RECORDS SUMMARY | 2024-07-06 18:00 | XMS_ITS | Continuity of Care Document ---
Author Organization [facility] Address [address] [place] [id number]- Care Team Providers Care Knife Sharpener Name Role Phone Non-Staff, Physician Primary Care Physician Unav ailable Encounter [facility] [id number] Date(s): 05/12/20 - 05/12/[address] [address]- Discharge Disposition: Home or Self Care Medications Adderall 30 mg oral tablet 30 mg 1 tab(s), Oral, BID, 0 Refill(s) Start Date: 05/13/20 Status: Ordered KlonoPIN 2 mg oral tablet 2 mg = 1 tab(s), Oral, As Directed, 0 Refill(s) Start Date: 05/13/20 Status: Ordered Social History Social History Type Response Smoking Status Never (less than 100 in lifetime) entered on: 05/12/20 Sex
--- OUTSIDE RECORDS SUMMARY | 2024-07-06 18:00 | XMS_ITS | Referral Summary ---
Author Organization [facility] Address [address] [place] [phone] Encounter [facility] [id number] Date(s): 12/02/21 - 12/06/[address] [id number] [phone] Encounter Diagnosis PTSD (post-traumatic stress disorder)(Discharge Diagnosis) - 12/03/21 Post-traumatic stress disorder, unspecified(Final) - Nicotine dependence, unspecified, uncomplicated(Final) - Hypo-osmolality and hyponatremia(Final) - Hypokalemia(Final) - Anemia, unspecified(Final) - COVID-19(Final) - ADHD by history(Discharge Diagnosis) - 12/03/21 Moderate tobacco use disorder(Discharge Diagnosis) - 12/03/21 Discharge Disposition: Home or Self Care Attending Physician: MD Bangura Michelle A Vital Signs Most recent to oldest [Reference Range]: 1 2 3 Height 180 cm (12/02/21 1:51 AM) Patient Weight 84.8 kg (12/02/21 1:51 AM) Body Mass Index 26.17 kg/m2 (12/02/21 1:51 AM) Temperature [36.5-37.9 DegC] 37.0 DegC (12/05/21 7:00 PM) 36.9 DegC (12/05/21 3:00 AM) 36.8 DegC (12/04/21 7:00 PM) Heart Rate 79 bpm (12/05/21 7:00 PM) 87 bpm (12/05/21 3:00 AM) 70 bpm (12/04/21 7:00 PM) Respiratory Rate 16 br/min (12/05/21 7:00 PM) 18 br/min (12/05/21 3:00 AM) 20 br/min (12/04/21 7:00 PM) Blood Pressure 125/84mmHg (12/05/21 7:00 PM) 148/88mmHg (12/05/21 3:00 AM) 161/112mmHg (12/04/21 7:00 PM) Mean Blood Pressure 96 mmHg (12/05/21 7:00 PM) 108 mmHg (12/05/21 3:00 AM) 100 mmHg (12/04/21 7:00 PM) Cuff Pulse Pressure 41 mmHg (12/05/21 7:00 PM) 60 mmHg (12/05/21 3:00 AM) 49 mmHg (12/04/21 7:00 PM) BP Location # 1 Left Arm (12/05/21 7:00 PM) Left Arm (12/05/21 3:00 AM) Left Arm (12/04/21 7:00 PM) Problem List Condition Effective Dates Status Health Status Inform ant ADHD(Confirmed) Active Narcolepsy(Confirmed) Active Allergies, Adverse Reactions, Alerts No Known Medication Allergies Medications Adderall 30 mg oral tablet Start: 12/06/21 18:39:00 EST, 1 tab, PO, bid, Disp# 60 tab, Refills: 0 Start Date: 12/06/21 Stop Date: 01/05/22 Status: Ordered Motrin Start: 12/02/21 1:48:00 EST Start Date: 12/02/21 Status: Ordered Results Most recent to oldest [Reference Range]: 1 Estimated CrCl 118.04 mL/min (12/02/21 4:04 AM) Estimated GFR, Black Race [>60 mL/min/1. 73 m2] >60 mL/min/1.73 m2 (12/02/21 2:36 AM) Estimated GFR, non-Black Rac e [>60 mL/min/1.73 m2] >60 mL/min/1.73 m2 (12/02/21 2:36 AM) MPV [9.0-12.2 fL] 8.2 fL *LOW* (12/02/21 2:36 AM) Immature Gran% 0.3 % (12/02/21 2:36 AM) Neut% 51.5 % (12/02/21 2:36 AM) Lymph% 32.5 % (12/02/21 2:36 AM) Pershing% 12.1 % (12/02/21 2:36 AM) Baso% 0.8 % (12/02/21 2:36 AM) Eos% 2.8 % (12/02/21 2:36 AM) Immat Gran, Abs [0-0.4 K/uL] 0.01 K/uL (12/02/21 2:36 AM) Neut, Abs [2.0-7.7 K/uL] 2.00 K/uL (12/02/21 2:36 AM) Lymph, Abs [1.0-3.4 K/uL] 1.26 K/uL (12/02/21 2:36 AM) Pershing, Abs [0-1.0 K/uL] 0.47 K/uL (12/02/21 2:36 AM) Baso, Abs [0-0.1 K/uL] 0.03 K/uL (12/02/21 2:36 AM) Eos, Abs [0-0.5 K/uL] 0.11 K/uL (12/02/21 2:36 AM) Type of Diff: AUTO (12/02/21 2:36 AM) RDW [11.5-14.2 %] 15.0 % *HI* (12/02/21 2:36 AM) Acetaminophn [10-30 ug/mL] <5.0 ug/mL *LOW* (12/02/21 2:36 AM) Anion Gap [5-14 mmol/L] 13 mmol/L (12/02/21 2:36 AM) EtOH med [<10 mg/dL] <10 mg/dL (12/02/21 2:36 AM) Alk Phos [40-130 unit/L] 126 unit/L (12/02/21 2:36 AM) ALT [0-41 unit/L] 24 unit/L (12/02/21 2:36 AM) Amphetamines(u) PRESUMPTIVE POSITIVE DRUG RESULT 1 (12/02/21 2:36 AM) Barbiturates(u) NONE DETECTED (12/02/21 2:36 AM) Benzodiazepines(u) NONE DETECTED (12/02/21 2:36 AM) Bili (u) [NEG] NEGATIVE (12/02/21 2:36 AM) BUN [6-23 mg/dL] 13 mg/dL (12/02/21 2:36 AM) Ca [8.4-10.2 mg/dL] 9.5 mg/dL (12/02/21 2:36 AM) Cl- [98-107 mmol/L] 98 mmol/L (12/02/21 2:36 AM) HCO3 [22-29 mmol/L] 24 mmol/L (12/02/21 2:36 AM) Cocaine(u) NONE DETECTED (12/02/21 2:36 AM) Cret [0.70-1.30 mg/dL] 0.75 mg/dL (12/02/21 2:36 AM) Glu [74-109 mg/dL] 87 mg/dL 2 (12/02/21 2:36 AM) Hct [39-48 %] 38.4 % *LOW* (12/02/21 2:36 AM) Hgb [13.0-17.0 g/dL] 12.5 g/dL *LOW* (12/02/21 2:36 AM) K [3.5-5.1 mmol/L] 3.4 mmol/L *LOW* (12/02/21 2:36 AM) Ketones [NEG mg/dL] NEGATIVE mg/dL (12/02/21 2:36 AM) Leuk Est [NEG] NEGATIVE (12/02/21 2:36 AM) Marijuana(u) PRESUMPTIVE POSITIVE DRUG RESULT 3 (12/02/21 2:36 AM) MCH [28-33 pg] 29.8 pg (12/02/21 2:36 AM) MCHC [32-36 g/dL] 32.6 g/dL (12/02/21 2:36 AM) MCV [81-96 fL] 91.6 fL (12/02/21 2:36 AM) Na [136-145 mmol/L] 135 mmol/L *LOW* (12/02/21 2:36 AM) Nitrite (u) [NEG] NEGATIVE (12/02/21 2:36 AM) Opiates(u) NONE DETECTED (12/02/21 2:36 AM) Plts [150-350 K/uL] 223 K/uL (12/02/21 2:36 AM) RBC [4.40-5.60 M/uL] 4.19 M/uL *LOW* (12/02/21 2:36 AM) ASA [<20.0 mg/dL] <1.0 mg/dL (12/02/21 2:36 AM) T Bili [0.0-1.2 mg/dL] 0.4 mg/dL (12/02/21 2:36 AM) TSH [0.30-4.20 uIU/mL] 1.34 uIU/mL (12/02/21 2:36 AM) Appear (u) CLEAR (12/02/21 2:36 AM) Color (u) YELLOW (12/02/21 2:36 AM) Glu (u) [NEG mg/dL] NEGATIVE mg/dL (12/02/21 2:36 AM) Hgb (u) [NEG] NEGATIVE (12/02/21 2:36 AM) pH (u) [5.0-8.0 unit] 6.0 unit (12/02/21 2:36 AM) Prot (u) [NEG mg/dL] NEGATIVE mg/dL (12/02/21 2:36 AM) Urobili [0.1-1.0 EU/dL] 0.1-1.0 EU/dL (12/02/21 2:36 AM) SG [1.005-1.030] 1.011 (12/02/21 2:36 AM) WBC [4.0-10.4 K/uL] 3.88 K/uL *LOW* (12/02/21 2:36 AM) 1Result Comment: Unconfirmed, intended for Medical treatment purposes only 2Result Comment: ADA recommendation for FASTING Serum/Plasma Glucose: Normal: 70-100 mg/dL Prediabetes: 100-125 mg/dL Diabetes: 126 mg/dL or higher 3Result Comment: Unconfirmed, intended for Medical treatment purposes only Microbiology Reports TEST:COVID-19 Coronavirus PCR STATUS:Auth (Verified) BODY SITE: SOURCE:Nasal/Pharyngeal COLLECTED DATE/TIME:12/02/21 2:37 AM Multiplex PCR COVID 19 VIRUS DETECTED This assay has been granted an Emergency Use Authorization (EUA) by the U.S. Food and Drug Administration. The performance of the assay (Focus) has been verified by the [facility]. Test results reported to [place] Dept of Health ORGANISM:COVID 19 virus detected Social History Social History Type Response Smoking Status Never smoked cigaret andrea
--- OUTSIDE RECORDS SUMMARY | 2024-07-06 18:00 | XMS_ITS | Continuity of Care Document ---
Author Organization [facility] Address [address] [place] [address] Phone Support Name Relationship Address Phone Karri Quigley Family/Other [address] [place] [address] Pcp-Md Gaurav Primary Care Provider Unknown Hedy Billy Emergency Provider [facility] [place] [address] Tani Davis Other Provider [address] [place] [address] Allergies, Adverse Reactions, Alerts Allergen Type Severity [...] 05, 2020 2:52pm 7.5 X10 3/uL 4.5-11.[address] [phone] Red Blood Count February 05, 2020 2:52pm 4.99 X10 6/uL 4.00-5.[address] [phone] Hemoglobin February 05, 2020 2:52pm 15.4 g/dl 12.0-17.0 [facility] [address], [address] [place] [address] Hematocrit February 05, 2020 2:52pm 45.8 % 35.0-50.0 [facility], [address] [place] [address] Mean Corpuscular Volume February 05, 2020 2:52pm 91.8 fl 80.0-100.0 [facility], [address] [place] [address] Mean Corpuscular Hemoglobin February 05, 2020 2:52pm 30.9 pg 27.0-34.0 [facility], [address] [place] [address] Mean Corpuscular Hemoglobin Concent February 05, 2020 2:52pm 33.6 g/dl 31.0-36.0 [facility], [address] [place] [address] Red Cell Distribution Width February 05, 2020 2:52pm 12.6 % 11.5-15.0 [facility], [address] [place] [address] Platelet Count February 05, 2020 2:52pm 237 X10 3/uL 150-400 [facility], [address] [place] [address] Immature Granulocyte % (Auto) February 05, 2020 2:52pm 0.4 % [facility], [address] [place] [address] Neutrophils (%) (Auto) February 05, 2020 2:52pm 70.7 % [facility], [address] [place] [address] Lymphocytes (%) (Auto) February 05, 2020 2:52pm 18.6 % [facility], [address] [place] [address] Monocytes (%) (Auto) February 05, 2020 2:52pm 6.5 % [facility], [address] [place] [address] Eosinophils (%) (Auto) February 05, 2020 2:52pm 2.5 % [facility], [address] [place] [address] Basophils (%) (Auto) February 05, 2020 2:52pm 1.3 % [facility], [address] [facility] [address] Immature Granulocyte # (Auto) February 05, 2020 2:52pm 0.03 X10 3/uL 0.00-0.09 [facility], [address] [place] [address] Neutrophils # (Auto) February 05, 2020 2:52pm 5.3 X10 3/uL 1.5-7.8 [facility], [address] [place] [address] Lymphocytes # (Auto) February 05, 2020 2:52pm 1.4 X10 3/uL 1.0-4.8 [facility], [address] [place] [address] Monocytes # (Auto) February 05, 2020 2:52pm 0.5 X10 3/uL 0.0-0.8 [facility], [address] [place] [address] Eosinophils # (Auto) February 05, 2020 2:52pm 0.2 X10 3/uL 0.0-0.5 [facility], [address] [place] [address] Basophils # (Auto) February 05, 2020 2:52pm 0.1 X10 3/uL 0.0-0.2 [facility], [address] [place] [address] Nucleated Red Blood Cells % February 05, 2020 2:52pm 0.0 /100 WBC 0.0-0.0 [facility], [address] [place] [address] Urine Color February 05, 2020 3:07pm Yellow Yellow [facility] [place], [address] [place] [address] Urine Clarity February 05, 2020 3:07pm Hazy Clear [facility], [address] [place] [address] Urine pH February 05, 2020 3:07pm 7.0 5.0-8.0 [facility] [place], [address] [place] [address] Urine Specific [place] February 05, 2020 3:07pm 1.010 1.003-1.03 0 [facility] [place], [address] [place] [address] Urine Blood February 05, 2020 3:07pm Negative mg/dl Negative [facility] [place], [address] [place] [address] Urine Protein February 05, 2020 3:07pm Negative mg/dl Negative [facility], [address] [place] [address] Urine Glucose (UA) February 05, 2020 3:07pm Negative mg/dl Negative [facility], [address] [place] [address] Urine Ketones February 05, 2020 3:07pm Negative mg/dl Negative [facility], [address] [place] [address] Urine Nitrate February 05, 2020 3:07pm Negative Negative [facility], [address] [place] [address] Urine Bilirubin February 05, 2020 3:07pm Negative mg/dl Negative [facility], [address] [place] [address] Urine Urobilinogen February 05, 2020 3:07pm Normal mg/dl Normal [facility], [address] [place] [address] Urine Leukocyte Esterase February 05, 2020 3:07pm Small Negative [facility], [address] [place] [address] Urine Microscopic Indicated February 05, 2020 3:07pm . 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 [facility], [address] [place] [address] Urine WBC February 05, 2020 3:07pm 2 /hpf 0-5 [facility], [address] [place] [address] Sodium Level February 05, 2020 2:52pm 134 mmol/L 137-146 [facility], [address] [place] [address] Potassium Level February 05, 2020 2:52pm 3.9 mmol/L 3.5-5.3 [facility], [address] [place] [address] Chloride Level February 05, 2020 2:52pm 97 mmol/L 98-107 [facility] [address] [place] [address] Carbon Dioxide Level February 05, 2020 2:52pm 22 mmol/L 23-32 [facility], [address] [place] [address] Anion Gap February 05, 2020 2:52pm 15 mmol/L 5-15 [facility] [address] [place] [address] Blood Urea Nitrogen February 05, 2020 2:52pm 19 mg/dl 5-25 [facility], [address] [place] [address] Creatinine February 05, 2020 2:52pm 0.9 mg/dL 0.6-1.4 [facility], [address] [place] [address] Estimated Creatinine Clearance February 05, 2020 2:52pm 105.6 ml/min This value is calculated by Cockcroft Gault Equation using ideal body weight. This result is dependent on an accurate patient height and weight which is obtained from patients medical record. Nicolaofnikia, D.W. and M.H. Gault. Prediction of creatinine clearance from serum creatinine. Nephron. 1976. 16(1):31-41. [facility], [address] [place] [address] Estimated GFR () February 05, 2020 2:52pm > 60 >60 [facility], [address] [place] [address] Estimated GFR (Non- February 05, 2020 2:52pm > 60 >60 [facility], [address] [place] [address] BUN/Creatinine Ratio February 05, 2020 2:52pm 21.1 10.0-20.0 [facility], [address] [place] [address] Glucose Level February 05, 2020 2:52pm 100 mg/dL 70-100 [facility], [address] [place] [address] Calcium Level February 05, 2020 2:52pm 9.7 mg/dl 8.6-10.3 [facility], [address] [place] [address] Total Bilirubin February 05, 2020 2:52pm 0.4 mg/dl <1.2 [facility], [address] [place] [address] Aspartate Amino Transf (AST/SGOT) February 05, 2020 2:52pm 28 U/L 15-41 Specimen hemolyzed, results affected, evaluate with caution. [facility], [address] [place] [address] Alanine Aminotransfera se (ALT/SGPT) February 05, 2020 2:52pm 21 U/L 14-63 [facility], [address] [place] [address] Total Protein February 05, 2020 2:52pm 7.9 g/dL 6.4-8.3 [facility], [address] [place] [address] Albumin February 05, 2020 2:52pm 4.9 g/dl 4.0-5.0 [facility], [address] [place] [address] Albumin/Globul in Ratio February 05, 2020 2:52pm 1.6 1.0-2.6 [facility], [address] [place] [address] Alkaline Phosphatase February 05, 2020 2:52pm 131 U/L 40-129 [facility], [address] [place] [address] Urine Amphetamines Screen February 05, 2020 3:07pm Positive Negative Confirmation by GC/MS not routinely performed for Non-Maternity locations. If confirmation is required, an order must be placed.Amphetami erwin Cutoff level 1000 ng/mL. [facility], [address] [place] [address] Urine Methadone Screen February 05, 2020 3:07pm Negative Negative Methadone Cutoff level 300 ng/mL [facility], [address] [place] [address] Urine Oxycodone Screen February 05, 2020 3:07pm Negative Negative Oxycontin/Oxycod one Cutoff level 100 ng/mL [facility], [address] [place] [address] Urine Buprenorphine Screen February 05, 2020 3:07pm Negative Negative Buprenorphine Cutoff level 5 ng/mL [facility], [address] [place] [address] Urine Opiates Screen February 05, 2020 3:07pm Negative Negative Opiate Cutoff level 300 ng/mLOxycontin/O xycodone is not detected below the threshold of20,000 ng/mL [facility], [address] [place] [address] Urine Fentanyl Screen February 05, 2020 3:07pm Negative Negative Fentanyl Cutoff level 2.0 ng/mL [facility], [address] [place] [address] Urine Benzodiazepine s Screen February 05, 2020 3:07pm Negative Negative Please note that the current method for benzodiazepines may be less sensitive to lorazapam detection than previously. If this result is negative and you are concerned about a false negative result for lorazepam, additional testing is possible. Please contact the laboratory.Benzo diazepine Cutoff level 200 ng/mL [facility] [address] [facility] [address] Urine Cocaine Screen February 05, 2020 3:07pm Negative Negative Cocaine Cutoff level 300 ng/mL [place] [address] Urine Cannabinoids Screen February 05, 2020 3:07pm [...] physiological pH range of 5 - 8. [facility], [address] [place] [address] Serum Alcohol February 05, 2020 2:52pm < 10 mg/dl <10 [facility] [address] Advance Directives Advance Directive Response Recorded Date/ Time Advance Directives No February 04 6:30pm Health Care Proxy No February 04 8:59pm Encounters Encounter Location(s) Arrival/Admit Date Discharge/Depart Date Provider(s) Departed Emergency [facility] Emergency Room Department February 05, 2020 2:30pm February 05, 2020 5:58pm null Assessments No Assessments Information Available Functional Status No Functional Status information available Goals Acute Goals These follow-up with your [facility] physician or with the [facility] first available appointment. Please find long-term, it is supposed to snow in the [...] available Insurance Providers Guarantor Tez Quigley Address [address] [place] [address] [address] [facility] [id number] Contact Info. Home Phone: Payer Policy Id Coverage Id Subscriber's Name Subscriber Id Effective Date Expiration Date Legal VeteransAdministrati on [id number] Tez Quigley [id number] Medicare A&B [id number] Tez Quigley [id number] Self Pay Self N/A Plan of Treatment Future Tests Future scheduled test information is unavailable Pending Tests Pending diagnostic test information is unavailable Future Visits Future appointment information is unavailable Referrals to Other Providers Reason for Referral Referral Start Date Provider Provider Contact Information Provider Address Md Pcp-None Referral Line [facility] Phone: [facility] Future Procedures Future procedure information is unavailable [...]
--- OUTSIDE RECORDS SUMMARY | 2024-07-06 18:00 | XMS_ITS | Continuity of Care Document ---
Author Organization [facility] Address [address] [place] [id number]- Care Team Providers Care Colorman Name Role Phone Non-Staff, Physician Primary Care Physician Unav ailable Encounter [facility] [id number] Date(s): 05/12/20 - 05/15/[address] [address]- Encounter Diagnosis Suicidal ideation(Discharge Diagnosis) - 05/13/20 Rosemary(Discharge Diagnosis) - 05/13/20 Discharge Disposition: Psychiatric Fac Attending Physician: DEDE PONCE Admitting Physician: DEDE PONCE Allergies, Adverse Reactions, Alerts No Known Allergies Assessment and Plan Extracted from: Title:Addendum *ED Author:DEBORAH CABA Date: Medical Decision Making Notes: 55-year-old man with a history of bipolar disorder presented to the ED 61 hours ago requesting help for his mental health. In the ED he has been cooperative and manic. He has admitted to some dark thoughts, but no clear plan for suicide. He is voluntary. He has been accepted by Dr. Rios at the [facility] and will be transferred shortly. Since I arrived at 7:15 AM he has been talking continuously, flight of ideas with tangential thinking, with a focus on religiosity.. Impression and Plan Diagnosis Suicidal ideation ([id number] R45.851, Discharge, Medical) Rosemary ([id number] F30.9, Discharge, Medical) Plan Condition: Stable. Disposition: Medically cleared, Transfer to other location: Time: 05/15/2020 08:27:00, Facility name: [facility], Accepted by: Dr. Rios. Orders: Launch Orders Patient Care: [facility] (Order): 05/15/2020 8:27 EDT, [facility]. Extracted from: Title:Addendum *ED Author:CECILLE SANTIZO SA Date:05/15/20 Reexamination/ Reevaluation Time: 05/15/2020 05:23:00 . Vital signs Basic Oxygen Information 05/14/2020 10:12 EDT Oxygen Therapy Room air Notes: No issues overnight. Care will be signed out to Dr. Caba.. Extracted from: Title:Addendum *ED Author:Derick Pierre Date:05/14 Medical Decision Making 55-year-old female with bipolar disorder who presents with rosemary as well as paranoia and some suicidal ideation. She is medically cleared for psychiatric disposition. Awaiting placement. Normal coronavirus testing is negative. Reexamination/ Reevaluation Notes: No active issues during my shift. Patient care will be signed out to the oncoming team. Documentation will be updated as necessary.. Extracted from: Title:Addendum *ED Author:CECILLE SANTIZO SA Date:05/14/20 Reexamination/ Reevaluation Time: 05/14/2020 06:47:00 . Notes: No issues overnight. There is some question as to his amphetamine dose. He states that he takes 30 mg at 6 AM and noon. This was administered yesterday. Today he received a 6 AM dose. I would like to query the [place] drug prescription program but am unable to access that at the present time. Will follow up with Dr. Pierre on that to verify this prescription. Care will be signed out to Dr. Pierre.. Extracted from: Title:Addendum *ED Author:DERICK VELOZ Date: Medical Decision Making Notes: 55-year-old male taken in signout from Dr. Ez Bender with vague allusions to suicidal ideation, and paranoid commentary in the setting of rosemary. He is awaiting acceptance at [facility], hopefully today. No acceptance has been transmitted as yet at 1945 hrs. The patient has not required any emergency interventions and care will be transitioned to Dr. Stephens at 2000 hours. Impression and Plan Diagnosis Rosemary ([id number] F30.9, Discharge, Medical) Suicidal ideation ([id number] R45.851, Discharge, Medical) Plan Disposition: Patient care transitioned to: Time: 05/13/2020 20:00:00, DARRIAN SANTIZO Extracted from: Title:Psychiatric Author:EZ BENDER Date: History of Present Illness The patient presents with psychiatric problem. The onset was unknown. The course/duration of symptoms is worsening. Character of symptoms paranoid. The degree of symptoms is moderate. Self injury: none. The relieving factor is none. Therapy today: none. Associated symptoms: none. Additional history: Patient describes several circumstances with paranoid themes, primarily involving law enforcement and the government. When asked if he is suicidal, he states that he is following the instructions of his psychiatrist. He states that his psychiatrist instructed him to get help if he ever started to have dark thoughts. He does not otherwise describe any specific suicidal ideations.. Review of Systems Constitutional symptoms: No fever, Skin symptoms: No rash, ENMT symptoms: No sore throat, Respiratory symptoms: No shortness of breath, no cough. Gastrointestinal symptoms: No abdominal pain, no vomiting. Musculoskeletal symptoms: He has various chronic pains, including his back. He states he takes ibuprofen 800 mg as needed for these pains. He has had no recent worsening, nor new areas of pain.. Neurologic symptoms: No headache, Psychiatric symptoms: No substance abuse, Additional review of systems information: All other systems reviewed and otherwise negative. Health Status Allergies: No active allergies have been recorded.. Past Medical/ Family/ Social History Medical history: No active or resolved past medical history items have been selected or recorded.. Surgical history: No active procedure history items have been selected or recorded.. Family history: No family history items have been selected or recorded.. Social history: Social & Psychosocial History Social History Alcohol Never Tobacco Never (less than 100 in lifetime) Tobacco Use:. Electronic Cigarette/Vaping Electronic Cigarette Use: Never. Psychosocial History No active psychosocial history has been recorded. Problem list: No qualifying data available . Physical Examination Vital Signs Vital Signs 05/12/2020 19:59 EDT Temperature Temporal 37.1 DegC Peripheral Pulse Rate 81 bpm Respiratory Rate 20 br/min Systolic Blood Pressure 156 mmHg HI Diastolic Blood Pressure 81 mmHg SpO2 99 % . Measurements 05/12/2020 20:08 EDT Height/Length Dosing 182.000 cm Weight Dosing 82.000 kg 05/12/2020 19:59 EDT Height/Length Estimated 182.000 cm Weight Estimated 82.000 kg . Basic Oxygen Information 05/12/2020 19:59 EDT Oxygen Therapy Room air . General: Alert. Skin: Warm, no rash. Head: Atraumatic. Neck: Supple. Cardiovascular: Regular rate and rhythm, Normal peripheral perfusion. Respiratory: Respirations are non-labored. Gastrointestinal: Soft, Nontender. Neurological: Alert and oriented to person, place, time, and situation, normal motor observed, normal speech observed. Psychiatric: Cooperative, normal judgment, Abnormal / Psychotic thoughts: Tangential, flight of ideas, Rapid, pressured speech involving paranoid ideas without bizarre features.. Medical Decision Making 0817 Tez presents with mental health issues. He appears to be in a manic state, and alludes to the fact that he may have some SI. He is cooperative, and is interested in seeking help. He is aware that the process of transfer to a mental health facility could take some time, and he is okay with it. He has no signs or symptoms of any acute medical condition, nor any medical condition to preclude transfer to a psychiatric facility. Plan is for [facility] CRS evaluation. Reexamination/ Reevaluation Vital signs Basic Oxygen Information 05/12/2020 19:59 EDT Oxygen Therapy Room air 2243 per RN, HCRS has evaluated patient, made plans for voluntary placement at [facility] or [facility]. Patient is a , but refuses transfer to the [facility]. 0722 patient has been pleasant and cooperative throughout the night. He reports that the plan is for him to be transferred to the [facility]. Impression and Plan Diagnosis Rosemary ([id number] F30.9, Discharge, Medical) Suicidal ideation ([id number] R45.851, Discharge, Medical) Functional Status 05/12/20 Recent Travel History No recent travel Family Member Travel History No recent t ravel COVID-19 Screening None Medications Adderall 30 mg oral tablet 30 mg 1 tab(s), Oral, BID, 0 Refill(s) Start Date: 05/13/20 Status: Ordered KlonoPIN 2 mg oral tablet 2 mg = 1 tab(s), Oral, As Directed, 0 Refill(s) Start Date: 05/13/20 Status: Ordered Mental Status 05/12/20 Level of Consciousness Alert Results Laboratory List Name Date Automated Differential Standard 05/12/20 CBC w/Diff Standard 05/12/20 COVID-19 Testing [facility] 05/12/20 Comprehensive Metabolic Panel Standard ( CMP Standard) 05/12/20 Fentanyl Level 05/12/20 TSH [place] 05/12/20 Urinalysis with Culture, if indicated [place] 05/12/20 Urine Drug Screen Standard 05/12/20 Urinalysis Microscopic Standard 05/12/20 Most recent to oldest [Reference Range]: 1 Urine Culture? No (05/12/20 8:37 PM) U Buprenorphine Scr [Negative] Negative (05/12/20 8:37 PM) NRBC Auto Pct [0.00-0.20 %] 0.00 % (05/12/20 8:37 PM) Urine Srce Not Indicated (05/12/20 8:37 PM) Creatinine [0.70-1.20 mg/dL] 1.78 mg/dL *HI* (05/12/20 8:37 PM) UA Hyal Cast Many *ABN* (05/12/20 8:37 PM) UA Bacteria [None Seen] None Seen (05/12/20 8:37 PM) U Benzodia Scr [Negative] Negative (05/12/20 8:37 PM) UA Bili [Negative] Small *ABN* (05/12/20 8:37 PM) UA Blood [Negative] Negative (05/12/20 8:37 PM) U Cocaine Scr [Negative] Negative (05/12/20 8:37 PM) UA Color Yellow (05/12/20 8:37 PM) UA Glucose [Negative] Negative (05/12/20 8:37 PM) UA Ketones [Neg] 40 mg/dL *ABN* (05/12/20 8:37 PM) UA Leuk Est [Negative] Negative (05/12/20 8:37 PM) UA Mucous Marked *ABN* (05/12/20 8:37 PM) UA Nitrite [Negative] Negative (05/12/20 8:37 PM) U Opiate Scr [Negative] Negative (05/12/20 8:37 PM) U PCP Scr [Negative] Positive *ABN* (05/12/20 8:37 PM) UA Protein [Negative] 30 mg/dL *ABN* (05/12/20 8:37 PM) UA RBC [0-2] 0-2 (05/12/20 8:37 PM) UA Urobilinogen 0.2 EU/dL (05/12/20 8:37 PM) UA WBC 0-2 (05/12/20 8:37 PM) U Amph Scr [Negative] Positive *ABN* (05/12/20 8:37 PM) U Alysha Scr [Negative] Negative (05/12/20 8:37 PM) AGAP [10.0-18.0 mmol/L] 28.1 mmol/L *HI* (05/12/20 8:37 PM) Glucose Lvl [70-100 mg/dL] 149 mg/dL *HI* (05/12/20 8:37 PM) Hct [40.1-51.0 %] 40.6 % (05/12/20 8:37 PM) Hgb [13.7-17.5 gm/dL] 14.4 gm/dL (05/12/20 8:37 PM) Lymph Auto [15.0-45.0 %] 15.9 % (05/12/20 8:37 PM) MCH [25.6-32.2 pg] 30.8 pg (05/12/20 8:37 PM) MCHC [32.3-36.5 gm/dL] 35.5 gm/dL (05/12/20 8:37 PM) MCV [79.0-92.2 fL] 86.8 fL (05/12/20 8:37 PM) [place] Auto [4.0-14.0 %] 6.5 % (05/12/20 8:37 PM) MPV [9.4-12.4 fL] 8.7 fL *LOW* (05/12/20 8:37 PM) Neutro Auto [50.0-75.0 %] 74.7 % (05/12/20 8:37 PM) Osmolality [268.0-291.0 mOsm/kg] 283.0 m Osm/kg (05/12/20 8:37 PM) Platelet [150-400 x10(3)/uL] 237 x10(3)/ uL (05/12/20 8:37 PM) RBC [4.63-6.08 x10(6)/uL] 4.68 x10(6)/uL (05/12/20 8:37 PM) Sodium Lvl [136-145 mmol/L] 135 mmol/L *LOW* (05/12/20 8:37 PM) Total Protein [6.6-8.7 gm/dL] 7.5 gm/dL (05/12/20 8:37 PM) TSH [0.270-4.200 uIU/mL] 0.536 uIU/mL (05/12/20 8:37 PM) UA pH 5.5 (05/12/20 8:37 PM) Albumin Lvl [3.50-5.20 gm/dL] 4.90 gm/dL (05/12/20 8:37 PM) Alk Phos [40-130 IntUnit/L] 103 IntUnit/ L (05/12/20 8:37 PM) ALT [0-41 IntUnit/L] 18 IntUnit/L (05/12/20 8:37 PM) AST [0-40 IntUnit/L] 30 IntUnit/L (05/12/20 8:37 PM) Basophil Auto [0.0-2.0 %] 1.2 % (05/12/20 8:37 PM) Bili Total [0.0-1.3 mg/dL] 0.8 mg/dL (05/12/20 8:37 PM) CO2 [22-29 mmol/L] 17 mmol/L *LOW* (05/12/20 8:37 PM) Eos Auto [0.0-8.0 %] 1.2 % (05/12/20 8:37 PM) UA Spec Grav 1.025 (05/12/20 8:37 PM) WBC [4.2-9.1 x10(3)/uL] 8.3 x10(3)/uL (05/12/20 8:37 PM) BUN [6-23 mg/dL] 41 mg/dL *HI* (05/12/20 8:37 PM) Calcium Lvl [8.6-10.2 mg/dL] 9.9 mg/dL (05/12/20 8:37 PM) Chloride [98-107 mmol/L] 94 mmol/L *LOW* (05/12/20 8:37 PM) Potassium Lvl [3.5-5.1 mmol/L] 4.1 mmol/ L (05/12/20 8:37 PM) Micro? [Not Indicated] Indicated *ABN* (05/12/20 8:37 PM) Lymph Absolute [1.30-3.60 x10(3)/uL] 1.3 2 x10(3)/uL (05/12/20 8:37 PM) [place] Absolute [0.30-0.80 x10(3)/uL] 0.54 x10(3)/uL (05/12/20 8:37 PM) Eos Absolute [0.04-0.36 x10(3)/uL] 0.10 x10(3)/uL (05/12/20 8:37 PM) NRBC Absolute [0.00-0.01 x10(3)/uL] 0.00 x10(3)/uL (05/12/20 8:37 PM) UA Clarity Clear (05/12/20 8:37 PM) U TCA Scr [Negative] Negative (05/12/20 8:37 PM) Neutro Absolute [1.78-5.38 x10(3)/uL] 6. 21 x10(3)/uL *HI* (05/12/20 8:37 PM) RDW-CV [11.6-14.4 %] 12.7 % (05/12/20 8:37 PM) GFR 49 mL/min/1.73 m2 *NA* (05/12/20 8:37 PM) GFR NonAfrican Prydeinig 40 mL/min/1.73 m 2 *NA* (05/12/20 8:37 PM) U mAMP Scr [Negative] Negative (05/12/20 8:37 PM) U OXY Scr [Negative] Negative (05/12/20 8:37 PM) U PPX Scr [Negative] Negative (05/12/20 8:37 PM) Fentanyl Interp Negative *NA* (05/12/20 8:37 PM) UA Squam Epi Rare *ABN* (05/12/20 8:37 PM) U THC Scr [Negative] Positive *ABN* (05/12/20 8:37 PM) U Methadone Scr [Negative] Negative (05/12/20 8:37 PM) COVID-19 [facility] Result [facility] [Negative] Neg ative 1 *NA* (05/12/20 8:37 PM) COVID-19 Result [facility] Not Reported 2 *NA* (05/12/20 8:37 PM) Performing Lab [facility] SEE BELOW 3 *NA* (05/12/20 8:37 PM) Patient admitted or to be admitted? FA[facility] Yes (05/12/20 8:37 PM) Immature Gran % [0.00-2.30 %] 0.50 % (05/12/20 8:37 PM) Immature Gran Absolute 0.04 x10(3)/uL *NA* (05/12/20 8:37 PM) Basophil Absolute [0.00-0.10 x10(3)/uL] 0.10 x10(3)/uL (05/12/20 8:37 PM) 1Result Comment: This test has not been FDA cleared or approved. This test has been authorized by FDA under an EUA for use by authorized laboratories. This test has been authorized only for detection of nucleic acid from 2019-nCoV, not for any other viruses or pathogens. This test is only authorized for the duration of the declaration that circumstances exist justifying the authorization of emergency use of in vitro diagnostic tests for detection and/or diagnosis of 2019-nCoV under section 564(b)(1) of Act, 21 U.S.C ? 360bbb-3(b) (1), unless the authorization is terminated or revoked sooner. Negative results do not preclude 2019-nCoV infection and should not be used as the sole basis for treatment or other patient management decisions. Negative results must be combined with clinical observations, patient history, and epidemiological information. Performed on the [employer] Fusion instrument Is Patient Admitted or Awaiting Admission?:Yes Patient admitted or to be admitted? FAH: Priority? FAH: Tier 1 Test performed [place] [address] 2Result Comment: Is Patient Admitted or Awaiting Admission?:Yes Patient admitted or to be admitted? FAH: Priority? FAH: Tier 1 Test performed [place] [address] 3Result Comment: RESULT: [place] [facility] Is Patient Admitted or Awaiting Admission?:Yes Patient admitted or to be admitted? FAH: Priority? FAH: Tier 1 Test performed [place] [address] Vital Signs Most recent to oldest [Reference Range]: 1 2 3 Temperature Temporal [36.3-37.8 DegC] 36.6 DegC (05/15/20 8:10 AM) 36.2 DegC *LOW* (05/13/20 11:03 PM) 36.9 DegC (05/13/20 11:10 AM) Temperature Temporal (DegF) 98.42 DegF (05/13/20 11:10 AM) 97.16 DegF (05/13/20 8:55 AM) Peripheral Pulse Rate [60-100 bpm] 85 bpm (05/15/20 8:32 AM) 85 bpm (05/15/20 8:10 AM) 80 bpm (05/14/20 10:21 PM) Respiratory Rate [14-20 br/min] 18 br/min (05/15/20 8:32 AM) 18 br/min (05/15/20 8:10 AM) 18 br/min (05/14/20 10:21 PM) Blood Pressure [90-140/60-90 mmHg] 150/90mmHg *HI* (05/15/20 8:32 AM) 150/90mmHg *HI* (05/15/20 8:10 AM) 159/95mmHg *HI* (05/14/20 10:21 PM) BP Site Right arm (05/14/20 10:21 PM) Left arm (05/13/20 11:03 PM) Left arm (05/13/20 11:10 AM) Patient Position BP Sitting (05/14/20 10:21 PM) Supine (05/13/20 11:03 PM) Sitting (05/13/20 11:10 AM) FIO2 21 % (05/14/20 10:21 PM) SpO2 [92-100 %] 98 % (05/15/20 8:32 AM) 98 % (05/15/20 8:10 AM) 98 % (05/14/20 10:21 PM) Height/Length Estimated 182.000 cm (05/12/20 7:59 PM) Height/Length Dosing 182.000 cm (05/12/20 8:08 PM) Weight Estimated 82.000 kg (05/15/20 8:32 AM) 82.000 kg (05/12/20 7:59 PM) Weight Dosing 82.000 kg (05/12/20 8:08 PM) Social History Social History Type Response Smoking Status Never (less than 100 in lifetime) entered on: 05/12/20 Sex
--- OUTSIDE RECORDS SUMMARY | 2024-07-06 18:00 | XMS_ITS | Continuity of Care Document ---
Author Organization [facility] Address [address] [place] [address] Phone Support Name Relationship Address Phone Karri Quigley Family/Other [address] [place] [address] Pcp-Md Gaurav Primary Care Provider Unknown Jeannine Vargas Emergency Provider [address] [facility] [place] [address] Allergies, Adverse Reactions, Alerts Allergen Type Severity Reaction Last Updated Verified Status Opioids - Morphine Analogues Allergy Unknown March 21 Yes Active anti-depressants Allergy Unknown March 21, 2020 No A ctive anti-psychotics Allergy Unknown March 21, 2020 No Ac tive Medications Medication Status Dose Units Route Sig Qty Days Start Date End Date Instructions D-Amphetamine Salt Combo Tab Active 30 MG Oral TWICE A DAY December 31, 2019 6:22pm Problems Active Problems Medical Problem Onset Date Status PTSD (post-traumatic stress disorder) Active TBI (traumatic brain injury) Act sonny Paranoia Active Acute anxiety Active ADHD Active Inactive/Resolved Problems Medical Problem Onset Date Status Manic behavior Resolved Psychosis Resolved Procedures Procedure Date Performed Status Urine Culture March 21, 2020 active Relevant Diagnostic Tests and/or Laboratory Data Laboratory Results Test Date/Time Result Interpretation Reference Range Result Comment Performing Site White Blood Count March 21, 2020 4:55pm 5.9 X10 3/uL 4.5-11.0 [facility], [address] [facility] [address] Red Blood Count March 21, 2020 4:55pm 4.04 X10 6/uL 4.00-5.50 [facility], [address] [facility] [address] Hemoglobin March 21, 2020 4:55pm 12.6 g/dl 12.0-17.0 [facility], [address] [place] [address] Hematocrit March 21, 2020 4:55pm 36.8 % 35.0-50.0 [facility], [address] [place] [address] Mean Corpuscular Volume March 21, 2020 4:55pm 91.1 fl 80.0-100.0 [facility], [address] [place] [address] Mean Corpuscular Hemoglobin March 21, 2020 4:55pm 31.2 pg 27.0-34.0 [facility], [address] [place] [address] Mean Corpuscular Hemoglobin Concent March 21, 2020 4:55pm 34.2 g/dl 31.0-36.0 [facility], [address] [place] [address] Red Cell Distribution Width March 21, 2020 4:55pm 12.7 % 11.5-15.0 [facility], [address] [place] [address] Platelet Count March 21, 2020 4:55pm 213 X10 3/uL 150-400 [facility], [address] [place] [address] Immature Granulocyte % (Auto) March 21, 2020 4:55pm 0.2 % [facility], [address] [place] [address] Neutrophils (%) (Auto) March 21, 2020 4:55pm 58.9 % [facility], [address] [place] [address] Lymphocytes (%) (Auto) March 21, 2020 4:55pm 28.8 % [facility], [address] [place] [address] Monocytes (%) (Auto) March 21, 2020 4:55pm 6.8 % [facility], [address] [place] [address] Eosinophils (%) (Auto) March 21, 2020 4:55pm 3.9 % [facility], [address] [place] [address] Basophils (%) (Auto) March 21, 2020 4:55pm 1.4 % [facility], [address] [place] [address] Immature Granulocyte # (Auto) March 21, 2020 4:55pm 0.01 X10 3/uL 0.00-0.09 [facility], [address] [place] [address] Neutrophils # (Auto) March 21, 2020 4:55pm 3.5 X10 3/uL 1.5-7.8 [facility], [address] [place] [address] Lymphocytes # (Auto) March 21, 2020 4:55pm 1.7 X10 3/uL 1.0-4.8 [facility], [address] [place] [address] Monocytes # (Auto) March 21, 2020 4:55pm 0.4 X10 3/uL 0.0-0.8 [facility], [address] [place] [address] Eosinophils # (Auto) March 21, 2020 4:55pm 0.2 X10 3/uL 0.0-0.5 [facility], [address] [place] [address] Basophils # (Auto) March 21, 2020 4:55pm 0.1 X10 3/uL 0.0-0.2 [facility], [address] [place] [address] Nucleated Red Blood Cells % March 21, 2020 4:55pm 0.0 /100 WBC 0.0-0.0 [facility], [address] [place] [address] Urine Color March 21, 2020 4:44pm Yellow Yellow [facility], [address] [place] [address] Urine Clarity March 21, 2020 4:44pm Clear Clear [facility], [address] [place] [address] Urine pH March 21, 2020 4:44pm 6.0 5.0-8.0 [facility], [address] [place] [address] Urine Specific [place] March 21, 2020 4:44pm 1.012 1.003-1.03 0 [facility], [address] [place] [address] Urine Blood March 21, 2020 4:44pm Negative mg/dl Negative [facility], [address] [place] [address] Urine Protein March 21, 2020 4:44pm Negative mg/dl Negative [facility], [address] [place] [address] Urine Glucose (UA) March 21, 2020 4:44pm Negative mg/dl Negative [facility], [address] [place] [address] Urine Ketones March 21, 2020 4:44pm Negative mg/dl Negative [facility], [address] [place] [address] Urine Nitrate March 21, 2020 4:44pm Negative Negative [facility], [address] [place] [address] Urine Bilirubin March 21, 2020 4:44pm Negative mg/dl Negative [facility], [address] [place] [address] Urine Urobilinogen March 21, 2020 4:44pm Normal mg/dl Normal [facility], [address] [place] [address] Urine Leukocyte Esterase March 21, 2020 4:44pm Small Negative [facility], [address] [place] [address] Urine Microscopic Indicated March 21, 2020 4:44pm . [facility], [address] [place] [address] Urine WBC March 21, 2020 4:44pm 2 /hpf 0-5 [facility], [address] [place] [address] Sodium Level March 21, 2020 4:55pm 135 mmol/L 137-146 [facility], [address] [place] [address] Potassium Level March 21, 2020 4:55pm 4.1 mmol/L 3.5-5.3 [facility], [address] [place] [address] Chloride Level March 21, 2020 4:55pm 100 mmol/L 98-107 [facility], [address] [place] [address] Carbon Dioxide Level March 21, 2020 4:55pm 21 mmol/L 23-32 [facility], [address] [place] [address] Anion Gap March 21, 2020 4:55pm 14 mmol/L 5-15 [facility], [address] [place] [address] Blood Urea Nitrogen March 21, 2020 4:55pm 17 mg/dl 5-25 [facility], [address] [place] [address] Creatinine March 21, 2020 4:55pm 1.3 mg/dL 0.6-1.4 [facility], [address] [place] [address] Estimated Creatinine Clearance March 21, 2020 4:55pm 69.2 ml/min This value is calculated by Cockcroft Gault Equation using ideal body weight. This result is dependent on an accurate patient height and weight which is obtained from patients medical record. Cockcroft, D.W. and M.H. Etta. Prediction of creatinine clearance from serum creatinine. Nephron. 1976. 16(1):31-41. [facility], [address] [place] [address] Estimated GFR () March 21, 2020 4:55pm > 60 >60 [facility], [address] [place] [address] Estimated GFR (Non- March 21, 2020 4:55pm > 60 >60 [facility], [address] [place] [address] BUN/Creatinine Ratio March 21, 2020 4:55pm 13.1 10.0-20.0 [facility], [address] [place] [address] Glucose Level March 21, 2020 4:55pm 129 mg/dL 70-100 [facility], [address] [place] [address] Calcium Level March 21, 2020 4:55pm 9.0 mg/dl 8.6-10.3 [facility], [address] [place] [address] Total Bilirubin March 21, 2020 4:55pm 0.3 mg/dl <1.2 [facility], [address] [place] [address] Aspartate Amino Transf (AST/SGOT) March 21, 2020 4:55pm 21 U/L 15-41 [facility], [address] [place] [address] Alanine Aminotransfera se (ALT/SGPT) March 21, 2020 4:55pm 21 U/L 14-63 [facility], [address] [place] [address] Total Protein March 21, 2020 4:55pm 6.8 g/dL 6.4-8.3 [facility], [address] [place] [address] Albumin March 21, 2020 4:55pm 4.0 g/dl 4.0-5.0 [facility], [address] [place] [address] Albumin/Globul in Ratio March 21, 2020 4:55pm 1.4 1.0-2.6 [facility], [address] [place] [address] Alkaline Phosphatase March 21, 2020 4:55pm 98 U/L 40-129 [facility], [address] [place] [address] Urine Amphetamines Screen March 21, 2020 4:44pm Positive Negative Confirmation by GC/MS not routinely performed for Non-Maternity locations. If confirmation is required, an order must be placed.Amphetami erwin Cutoff level 1000 ng/mL. [facility], [address] [place] [address] Urine Methadone Screen March 21, 2020 4:44pm Negative Negative Methadone Cutoff level 300 ng/mL [facility], [address] [place] [address] Urine Oxycodone Screen March 21, 2020 4:44pm Negative Negative Oxycontin/Oxycod one Cutoff level 100 ng/mL [facility], [address] [place] [address] Urine Buprenorphine Screen March 21, 2020 4:44pm Negative Negative Buprenorphine Cutoff level 5 ng/mL [facility], [address] [place] [address] Urine Opiates Screen March 21, 2020 4:44pm Negative Negative Opiate Cutoff level 300 ng/mLOxycontin/O xycodone is not detected below the threshold of20,000 ng/mL [facility], [address] [place] [address] Urine Fentanyl Screen March 21, 2020 4:44pm Negative Negative Fentanyl Cutoff level 2.0 ng/mL [facility], [address] [place] [address] Urine Benzodiazepine s Screen March 21, 2020 4:44pm Negative Negative Please note that the current method for benzodiazepines may be less sensitive to lorazapam detection than previously. If this result is negative and you are concerned about a false negative result for lorazepam, additional testing is possible. Please contact the laboratory.Benzo diazepine Cutoff level 200 ng/mL [facility], [address] [place] [address] Urine Cocaine Screen March 21, 2020 4:44pm Negative Negative Cocaine Cutoff level 300 ng/mL [facility], [address] [place] [address] Urine Cannabinoids Screen March 21, 2020 4:44pm Positive Negative Confirmation by GC/MS not routinely [...] physiological pH range of 5 - 8. [facility], [address] [facility] [address] Serum Alcohol March 21, 2020 4:55pm < 10 mg/dl <10 [facility], [address] [facility] [address] Advance Directives Advance Directive Response Recorded Date/ Time Advance Directives No March 21, 2020 8:40pm Health Care Proxy No March 21, 2020 11:03pm Encounters Encounter Location(s) Arrival/Admit Date Discharge/Depart Date Provider(s) Departed Emergency [facility] Emergency Room Department March 21, 2020 4:10pm March 21, 2020 8:03pm null Assessments No Assessments Information Available Functional Status No Functional Status information available Goals Acute Goals You were seen in the emergen cy room for anxiety. Please follow-up with your primary care doctor as well as behavioral health regarding today's ER visit. Please review all test results from today's ER visit with your primary care doctor, as there are sometimes additional incidental findings on final test results that need follow up by your primary care doctor. Return to the ER sooner if having thoughts of hurting self or others, any new concerns. Mental Status Observation Response Date Recorded Patient Behavior Cooperative March 21, 2020 1 1:03pm Medical Equipment No Medical Equipment Information available Insurance Providers Guarantor Tez Quigley Address [address] [place], [place] [id number] Contact Info. Home Phone: Payer Policy Id Coverage Id Subscriber's Name Subscriber Id Effective Date Expiration Date Legal VeteransAdministrati on [id number] Tez Quigley [id number] Medicare A Medicare A&B [id number] Tez Quigley [id number] Self Pay Self N/A Plan of Treatment Future Tests Future scheduled test information is unavailable Pending Tests Pending diagnostic test information is unavailable Future Visits Future appointment information is unavailable Referrals to Other Providers Reason for Referral Referral Start Date Provider Provider Contact Information Provider Address Md Pcp-None Future Procedures Future procedure information is unavailable Future Medications Future medication information is unavailable Patient Instructions Patient instructions are unavailable Social History Smoking Status Status Date of Observation Never smoked tobacco (finding) March 21, 2020 4:30pm Observation Status Observation Response Date of Response Lives With Alone March 21, 2020 4: 30pm Assigned Sex Male Vital Signs Vital Reading Result Reference Range Collection Date/Time Height 180.34 cm March 21, 2020 8 :23pm Weight 85.72 kg March 21, 2020 8 :23pm Body Temperature 98.0 [degF] 97.6-99.6 March 21 4:23pm Heart Rate 92 /min 60-90 March 21, 2020 4 :23pm Respiratory rate 18 /min 12-24 March 21 4:23pm Oxygen saturation by Pulse oximetry 97 % 95-10 0 March 21, 2020 4:23pm BP Systolic 134 mm[Hg] 90-140 March 21, 2020 4 :23pm BP Diastolic 81 mm[Hg] 60-90 March 21, 2020 4 :23pm BMI (Body Mass Index) 26.4 kg/m2 March 8:23pm
--- OUTSIDE RECORDS SUMMARY | 2024-07-06 18:00 | XMS_ITS | Continuity of Care Document ---
Author Organization [facility] Address [address] [place] [address] Phone Care Team Providers Care Registered Medical Transcriptionist Name Role Phone Pcp-Gaurav, Md BROWER Primary Care Provider MAGALIS Christy DO Family Provider Loc Ziegler MD Emergency Provider Care Teams Patient Care Team Team Status: Active Member Role Status Dates MAAGLIS TINEO Family Provider Active Pcp-MD Gaurav Primary Care Provider Active Visit Care Team Team Status: Inactive Member Role Status Dates Pcp-MD Gaurav Primary Care Provider Active St art: April 21, 2024 End: April 21, 2024 NOMAN BLANCAS DO Family Provider Active Start: [place] 2023 End: April 21, 2024 Loc Ziegler MD Emergency Provider Active Start : April 21, 2024 End: April 21, 2024 Chief Complaint and Reason for Visit Chief Complaint Admit Date HIGH BP April 21, 2024 2:43a m Allergies, Adverse Reactions, Alerts Allergen Type Severity Reaction Last Updated Verified Status Opioids - Morphine Analogues Allergy Unknown Unknown April 21, 2024 4:03am Yes Active anti-depressants Allergy Unknown Unknown April 4:03am No Active anti-psychotics Allergy Unknown Unknown April 21, 2024 4:03am No Active Social History Smoking Status Unknown if ever smoked Observation Status Observation Response Date of Response Living Situation Homeless April 21, 2024 8:00am Lives With Alone May 08, 2021 6:22am Patient Sex Male April 21, 2024 1 1:33am Assigned Sex Male December Problems Active Problems Medical Problem Onset Date Status PTSD (post-traumatic stress disorder) Active Altered awareness, transient Act sonny TBI (traumatic brain injury) Act sonny Hyponatremia Active Syncope Active Nicotine use disorder Active Methamphetamine use Active ADHD Active Hypertension Active Inactive/Resolved Problems Medical Problem Onset Date Status Manic behavior Resolved Paranoia Resolved Psychosis Resolved Schizoaffective disorder Resolve d Acute anxiety Resolved Medications Medication Status Dose Units Route Directions Qty Days St art Date Stop Date End Date Instructions Magnesium Hydroxide 30 ML suspension Active 30 ML PO DAILY as needed for Constipatio n May 08, 2021 12:00a m Nicotine 1 PATCH patch 24 hour Active 21 MG TRANSD ERM DAILY May 08, 2021 12:00a m Cholecalcife rol (Vitamin D3) 25 MCG capsule Active 1000 UNIT PO DAILY May 08, 2021 12:00a m Multivitamin 1 EACH tablet Active 1 EACH PO DAILY May 08, 2021 12:00a m Vitamin B Complex (Vitamins B Complex) 1 EACH capsule Active 1 TAB PO DAILY May 08, 2021 12:00a m Bisacodyl (Laxative (Bisacodyl)) 5 MG tablet Active 5 MG PO EVERY 6 HOURS as needed for Constipatio n May 08, 2021 12:00a m Amlodipine 5 MG tablet Active 10 MG PO DAILY May 08, 2021 12:00a m Acetaminophe n 500 MG tablet Active 1000 MG PO THREE TIMES A DAY as needed for pain May 08, 2021 12:00a m Cyclobenzapr ine 10 MG tablet Active 10 MG PO THREE TIMES A DAY May 08, 2021 12:00a m Clonazepam 1 MG tablet Active 1 MG PO TWICE A DAY May 08, 2021 12:00a m Capsaicin 60 APPL/60 GM cream Active 1 APPL TOPICA L THREE TIMES A DAY as needed for pain May 08, 2021 12:00a m Apply Left arm Lorazepam 1 MG tablet Active 1 MG PO THREE TIMES A DAY as needed for Anxiety May 08, 2021 12:00a m Risperidone 4 MG tablet Active 4 MG PO TWICE A DAY May 08, 2021 12:00a m Chlorthalido ne 25 MG tablet Active 25 MG PO DAILY@0600 May 10, 2021 12:00a m Ibuprofen 600 MG tablet Active 600 MG PO EVERY 6 HOURS as needed for pain May 22, 2020 12:00a m D-Amphetamin e Salt Combo Tab Discont inued 30 MG PO TWICE A DAY 2019 1:00am May 08, 2021 11:33 am Procedures Procedure Date Performed Status XR chest 1V portable April 21, 2024 4:06am compl eted EKG ED Electrocardiogram April 21, 2024 5:32am a ctive Relevant Diagnostic Tests and/or Laboratory Data Laboratory Results Test Date/Time Result Interpretation Reference Range Result Comment Performing Site Add-On Test Request April 21, 2024 6:22am Added test [facility] [id number] [address] [facility] [id number] White Blood Count April 21, 2024 5:10am 9.1 X10 3/uL 4.5-11.0 [facility] [id number] [address] [facility] 14669 Red Blood Count April 21, 2024 5:10am 4.24 X10 6/uL 4.00-5.50 [facility] [id number] [address] [place] [address] 99782 Hemoglobin April 21, 2024 5:10am 12.5 g/dl 12.0-17.0 [facility] [id number] [address] [facility] 45090 Hematocrit April 21, 2024 5:10am 35.3 % 35.0-50.0 [facility] [id number] [address] [place] [address] 88309 Mean Corpuscular Volume April 21, 2024 5:10am 83.3 fl 80.0-100.0 [facility] [id number] [address] [place] [address] 23414 Mean Corpuscular Hemoglobin April 21, 2024 5:10am 29.5 pg 27.0-34.0 [facility] [id number] [address] [place] [address] 84959 Mean Corpuscular Hemoglobin Concent April 21, 2024 5:10am 35.4 g/dl 31.0-36.0 [facility] [id number] [address] [place] [address] 32510 Red Cell Distribution Width April 21, 2024 5:10am 13.6 % 11.5-15.0 [facility] [id number] [address] [place] [address] 07121 Platelet Count April 21, 2024 5:10am 214 X10 3/uL 150-400 [facility] [id number] [address] [place] [address] 59207 Immature Granulocyte % (Auto) April 21, 2024 5:10am 0.4 % [facility] [id number] [address] [place] [address] 47441 Neutrophils (%) (Auto) April 21, 2024 5:10am 69.5 % [facility] [id number] [address] [place] [address] 33228 Lymphocytes (%) (Auto) April 21, 2024 5:10am 17.7 % [facility] [id number] [address] [place] [address] 06448 Monocytes (%) (Auto) April 21, 2024 5:10am 11.0 % [facility] [id number] [address] [place] [address] 86735 Eosinophils (%) (Auto) April 21, 2024 5:10am 1.0 % [facility] [id number] [address] [place] [address] 88970 Basophils (%) (Auto) April 21, 2024 5:10am 0.4 % [facility] [id number] [address] [place] [address] 93509 Immature Granulocyte # (Auto) April 21, 2024 5:10am 0.04 X10 3/uL 0.00-0.09 [place] [id number] [address] [place] [address] 58464 Neutrophils # (Auto) April 21, 2024 5:10am 6.3 X10 3/uL 1.5-7.8 [facility] [id number] [address] [place] [address] 16351 Lymphocytes # (Auto) April 21, 2024 5:10am 1.6 X10 3/uL 1.0-4.8 [facility] [id number] [address] [place] [address] 59099 Monocytes # (Auto) April 21, 2024 5:10am 1.0 X10 3/uL 0.0-0.8 [facility] [id number] [address] [place] [address] 88815 Eosinophils # (Auto) April 21, 2024 5:10am 0.1 X10 3/uL 0.0-0.5 [facility] [id number] [address] [facility] 43333 Basophils # (Auto) April 21, 2024 5:10am 0.0 X10 3/uL 0.0-0.2 [facility] [id number] [address] [facility] 51824 Nucleated Red Blood Cells % April 21, 2024 5:10am 0.0 /100 WBC 0.0-0.0 [facility] [id number] [address] [facility] 91465 Urine Color April 21, 2024 6:45am Yellow Yellow [facility] [id number] [address] [place] [address] 10936 Urine Clarity April 21, 2024 6:45am Clear Clear [facility] [id number] [address] [place] [address] 70277 Urine pH April 21, 2024 6:45am 7.0 5.0-8.0 [facility] [id number] [address] [place] [address] 84822 Urine Specific [place] April 21, 2024 6:45am <= 1.005 1.005-1.03 0 [facility] [id number] [address] [place] [address] 67857 Urine Blood April 21, 2024 6:45am Small mg/dL Negative [facility] [id number] [address] [place] [address] 24396 Urine Protein April 21, 2024 6:45am Negative mg/dL Negative [facility] [id number] [address] [place] [address] 72262 Urine Glucose (UA) April 21, 2024 6:45am Negative mg/dl Negative [facility] [id number] [address] [place] [address] 19688 Urine Ketones April 21, 2024 6:45am Negative mg/dL Negative [facility] [id number] [address] [place] [address] 89504 Urine Nitrate April 21, 2024 6:45am Negative Negative [facility] [id number] [address] [place] [address] 39861 Urine Bilirubin April 21, 2024 6:45am Negative mg/dL Negative [facility] [id number] [address] [place] [address] 66542 Urine Urobilinogen April 21, 2024 6:45am 0.2 E.U./dL Normal [facility] [id number] [address] [place] [address] 21772 Urine Leukocyte Esterase April 21, 2024 6:45am Negative mg/dL Negative [facility] [id number] [address] [place] [address] 41033 Urine RBC (Auto) April 21, 2024 6:45am Not Reportable [facility] [id number] [address] [place] [address] 12064 Urine WBC (Auto) April 21, 2024 6:45am Not Reportable [facility] [id number] [address] [place] [address] 41591 Urine Epithelial Cells (Auto) April 21, 2024 6:45am Not Reportable [facility] [id number] [address] [place] [address] 13190 Urine Casts (Auto) April 21, 2024 6:45am Not Reportable [facility] [id number] [address] [place] [address] 80418 Urine Bacteria (Auto) April 21, 2024 6:45am Not Reportable [facility] [id number] [address] [place] [address] 79360 Urine RBC April 21, 2024 6:45am 0-2 /HPF 0-2 [facility] [id number] [address] [place] [address] 75036 Urine WBC April 21, 2024 6:45am None seen /HPF 0-5 [facility] [id number] [address] [place] [address] 89304 Urine Bacteria April 21, 2024 6:45am None seen /HPF None Seen [facility] [id number] [address] [place] [address] 47640 Urine Squamous Epithelial Cells April 21, 2024 6:45am 0-5 /HPF 0-5 [facility] [id number] [address] [place] [address] 34385 Urine Hyaline Casts April 21, 2024 6:45am None seen /LPF None Seen [facility] [id number] [address] [place] [address] 96227 Sodium Level April 21, 2024 5:10am 122 mmol/L 137-146 [facility] [id number] [address] [place] [address] 53145 Potassium Level April 21, 2024 5:10am 3.1 mmol/L 3.5-5.3 [facility] [id number] [address] [place] [address] 77634 Chloride Level April 21, 2024 5:10am 89 mmol/L 98-107 [facility] [id number] [address] [place] [address] 85141 Carbon Dioxide Level April 21, 2024 5:10am 18 mmol/L 23-32 [facility] [id number] [address] [place] [address] 24461 Anion Gap April 21, 2024 5:10am 15 mmol/L 5-15 [facility] [id number] [address] [place] [address] 64501 Blood Urea Nitrogen April 21, 2024 5:10am 17 mg/dl 5-25 [facility] [id number] [address] [place] [address] 90394 Creatinine April 21, 2024 5:10am 1.1 mg/dL 0.6-1.4 [facility] [id number] [address] [place] [address] 05053 Estimated Creatinine Clearance April 21, 2024 5:10am Tank Erector Unable to Calculate CRCL,Ht and/or Wt missing [facility] [id number] [address] [place] [address] 32752 Estimat Glomerular Filtration Rate April 21, 2024 5:10am 78 >90 Reported eGFR is based on the CKD-EPI 2020 equation that does not use a race coefficient. Additional information can be found at:[id number] cb_egfr_summary _flyer5.pdf (kidney.org) [facility] [id number] [address] [place] [address] 42113 BUN/Creatinin e Ratio April 21, 2024 5:10am 15.5 10.0-20.0 [facility] [id number] [address] [place] [address] 39782 Glucose Level April 21, 2024 5:10am 106 mg/dL 70-100 [facility] [id number] [address] [place] [address] 64412 Calcium Level April 21, 2024 5:10am 8.8 mg/dl 8.6-10.3 [facility] [id number] [address] [place] [address] 45760 Total Bilirubin April 21, 2024 5:10am 1.0 mg/dl <1.1 [facility] [id number] [address] [place], [place] [address] Aspartate Amino Transf (AST/SGOT) April 21, 2024 5:10am 27 U/L 15-41 [facility] [id number] [address] [place], [place] [address] Alanine Aminotransfer ase (ALT/SGPT) April 21, 2024 5:10am 22 U/L 14-63 [facility] [id number] [address] [place] [address] 62001 Ammonia April 21, 2024 6:05am 28 umol/L 16-60 [facility] [id number] [address] [place] [address] 59182 Troponin T High Sensitivity April 21, 2024 5:10am 21 ng/L <13 Normal range: Females <9 ng/L Males <14 ng/L Values greater than or equal to 52 ng/L indicates acute myocardial injury/infarcti on Values between '10 and 51 ng/L' (for females) or '15 and 51 ng/L' (for males) require clinical correlation and is not diagnostic of acute myocardial injury.Consider repeat at 1 and 3 hours.A dynamic increase of ? greater than 5 ng/L? at 1 hour or 3 hours indicates of acute myocardial injury/infarcti on.For a patient with an estimated GFR of less than 30 mL/min/1.73 m2 or receiving dialysis, a dynamic increase of greater than 20% at 3 hours indicates acute myocardial injury.A value of less than 9 ng/L (in females) or less than 14 ng/L (in males) with a dynamic change of less than 3 ng/L, greater than 3 hours after symptom onset, generally rules out acute myocardial injury/infarcti on.Refer to Chest Pain order sets for additional clinical decision support (using the HEART score for the ED or the CHAI score for the inpatient setting). [facility] [id number] [address] [facility] [address] WA-Xcu-U-Type Natriuretic Peptide April 21, 2024 5:10am 79 pg/mL 0-900 The half-life of plasma BNP is significantly increased in patients with compromised renal function. [facility] [id number] [address] [facility] 91010 Total Protein April 21, 2024 5:10am 7.2 g/dL 6.4-8.3 [facility] [id number] [address] [place] [address] 38224 Albumin April 21, 2024 5:10am 4.4 g/dl 4.0-5.0 [facility] [id number] [address] [place] [address] 52726 Albumin/Globu melchor Ratio April 21, 2024 5:10am 1.6 1.0-2.6 [facility] [id number] [address] [place] [address] 48258 Alkaline Phosphatase April 21, 2024 5:10am 129 U/L 40-129 [facility] [id number] [address] [place] [address] 64933 Influenza Type A Antigen April 21, 2024 6:45am Negative Negative [facility] [id number] [address] [place] [address] 30280 Influenza Type B Antigen April 21, 2024 6:45am Negative Negative [facility] [id number] [address] [place] [address] 86394 SARS-CoV-2 Antigen (Rapid) April 21, 2024 6:45am Negative Negative The clinical performance of rapid antigen diagnostic tests largely depends on the circumstances in which they are used. Rapid antigen tests perform best when the person is tested in the early stages of infection with SARS-CoV-2 when viral load is generally highest. They also may be informative in diagnostic testing situations in which the person has a known exposure to a confirmed case of COVID-19. Rapid antigen tests can be used for screening testing in high-risk congregate settings in which repeat testing could quickly identify persons with a SARS-CoV-2 infection to inform infection prevention and control measures, thus preventing transmission. From: CDC.gov, Interim Guidance for Rapid Antigen Testing for SARS-CoV-2- Updated 08.05; https://www.cdc .gov/coronaviru s/2019-ncov/lab /resources/anti qgl-pwqpl-vijom lines.html [facility] [id number] [address] [place] [address] 26571 Urine Amphetamines Screen April 21, 2024 6:45am Positive Negative Confirmation by GC/MS not routinely performed for Non-Maternity locations. If confirmation is required, an order must be placed.Amphetam aparna Cutoff level 1000 ng/mL. [facility] [id number] [address] [place] [address] 38173 Urine Methadone Screen April 21, 2024 6:45am Negative Negative Methadone Cutoff level 300 ng/mL [facility] [id number] [place] [address] 03139 Urine Oxycodone Screen April 21, 2024 6:45am Negative Negative Oxycontin/Oxyco done Cutoff level 100 ng/mL [facility] [id number] [address] [place] [address] 44570 Urine Buprenorphine Screen April 21, 2024 6:45am Negative Negative Buprenorphine Cutoff level 5 ng/mL [facility] [id number] [address] [place] [address] 88513 Urine Opiates Screen April 21, 2024 6:45am Negative Negative Opiate Cutoff level 300 ng/mLOxycontin/ Oxycodone is not detected below the threshold of20,000 ng/mL [facility] [id number] [address] [place] [address] 41605 Urine Fentanyl Screen April 21, 2024 6:45am Negative Negative Fentanyl Cutoff level 2.0 ng/mL [facility] [id number] [address] [place] [address] 78472 Urine Benzodiazepin es Screen April 21, 2024 6:45am Negative Negative Please note that the current method for benzodiazepines may be less sensitive to lorazapam detection than previously. If this result is negative and you are concerned about a false negative result for lorazepam, additional testing is possible. Please contact the laboratory.[place] odiazepine Cutoff level 200 ng/mL [facility] [id number] [address] [place] [address] 28077 Urine Cocaine Screen April 21, 2024 6:45am Negative Negative Cocaine Cutoff level 300 ng/mL [facility] [id number] [address] [facility] 44945 Urine Cannabinoids Screen April 21, 2024 6:45am Negative Negative THC Cutoff level 50 ng/mLThis report is intended for use in clinical monitoring and management of patients. It is not intended for use in employment related drug testing or court related proceedings. Samples are not routinely tested for adulteration and are assumed to be within the normal physiological pH range of 5 - 8. [facility] [id number] [address] [place] [address] 72968 Diagnostic Imaging Reports Author Tani Raman [facility] Report Date/Time April 21, 2024 8:00a m [address] [address] Patient Name: Tez Quigley Medical Record#: [id number] Address: [address] [place] [address] City/State/Zip: [place] [address]: Loc barrios MD Insurance: [employer] /Age/Sex: 1965/59/M Self Pay Admit/Reg Date: 04/21/[address]: Warner Mills MD Location: ED.GS/ PCP: Md LEONARDA Dotson Date of Service: 04/21/24 Order (s): XR chest 1V portable CPT Code: 29341 Report Number: [id number] Reason for Exam: Hypoxia CHEST, SINGLE VIEW INDICATION: Hypoxia. COMPARISON: 05/07/2021. FINDINGS/IMPRESSION: AP, portable, upright view of the chest was obtained. There are low lung volumes, limiting evaluation. The heart is moderately enlarged. Mild pulmonary vascular congestion. No evidence of focal airspace disease. Dictated By: Tani Raman MD 04/21/24 0759 Signed By: Tani Raman MD 04/21/24 0804 TD/TT: 04/21/24 0759Tech: [id number] cc: NELSON NELSON; COLTNO* Loc Ziegler MD; Warner Mills MD; Md Nila MD Vital Signs Vital Reading Result Reference Range Collection Date/Time Body Temperature 98.6 [degF] 97.6-99.6 April 21 11:33am Heart Rate 90 /min 60-90 April 21, 2024 11:33am Respiratory rate 16 /min 12-24 April 21 11:33am Oxygen saturation by Pulse oximetry 99 % 95-100 April 21, 2024 11:33 am BP Systolic 126 mm[Hg] 90-140 April 21, 2024 11:33am BP Diastolic 80 mm[Hg] 60-90 April 21, 2024 11:33am Inhaled oxygen flow rate 2 L/min Apr 6:46am Advance Directives Advance Directive Response Recorded Date/ Time Advance Directives No April 21 3:09am Health Care Proxy No April 21, 2024 3:09am Pt has Medical Orders for Li fe Sustaining Tx Form (MOLST)? Yes May 08, 2021 10:06am Insurance Providers Guarantor Tez Quigley Address [address] [place], [place] [address] Contact Info. Home Phone: Payer Policy Id Coverage Id Subscriber's Name Subscriber Id Effective Date Expiration Date [place] [place] [id number] Tez Quigley [id number] Medicare A [id number] Tez Quiglye [id number] Medicare A&B [id number] Tez Quigley [id number] Self Pay Self N/A Encounters Encounter Location(s) Arrival/Admit Date Discharge/Depart Date Provider(s) Departed Emergency [facility]-Emergency Dept April 21, 2024 2:43am April 21, 2024 11:32am null Plan of Treatment Future Tests Future scheduled test information is unavailable Pending Tests Pending diagnostic test information is unavailable Future Visits Future appointment information is unavailable Referrals to Other Providers Reason for Referral Referral Start Date Provider Provider Contact Information Provider Address Pcp-Md LEONARDA Nolasco Future Procedures Procedure Name Ordered Date Scheduled Date EKG ED Electrocardiogram April 21, 2024 6:03am J 2023 5:32am Future Medications Future medication information is unavailable Patient Instructions Patient instructions are unavailable Progress Note Author Loc Ziegler [facility] Note Date/Time April 21, 2024 10:14 [place] [address] Emergency Department Document Signed Patient: Tez Quigley Medical Record#: [id number] : 1965 Acct:[id number] Age/Sex: 59 / M Admit/Reg Date: 04/21/24 Loc: ED. Room: Report Number: [id number]: Loc Ziegler MD Arrival - Arrival ED Triage Note: To ER from [facility] with c/o HTN. EMS reports pt was hypertensive (BP = 200/100), Also reports increased lethargy and hypoxia, pt arrived on NRB mask @ 96% History of Present Illness Nursing note reviewed: Yes Source: patient, old records Exam/History Limitations: clinical condition Primary Care Provider: Pcp-Md Gaurav Chief Complaint: General Medical Complaint Stated Complaint: HIGH BP History of Present Illness: 59-year-old male presents to the emergency department by ambulance from the [facility] with history of schizoaffective disorder, psychosis, paranoia, manic behavior, PTSD, traumatic brain injury today reporting that he was being ???persecuted by the government ???. He reports that people are out to get him. He also tells me that he used crystal meth last night. He is answering ???sir yes sir to every question I ask him for his review of systems. EMS reports that he was hypertensive at the [facility]. they thought he was hypotensive and placed him on a non-rebreather which was removed as soon as he got to the emergency department (Loc Ziegler) Allergies/Adverse Reactions: Opioids - Morphine Analogues Allergy (Verified 04/21/24 04:03) Unknown anti-depressants Allergy (Uncoded 04/21/24 04:03) Unknown anti-psychotics Allergy (Uncoded 04/21/24 04:03) Unknown Review of Systems ROS: Unable to obtain due to patient is paranoid and not answering most questions correctly (Loc Ziegler) Past Medical/Surgical History Medical History: Medical History (Last Reviewed 05/08/21 @ 06:59 by Edd Kilpatrick MD) ADHD (Medical) F90.9 PTSD (post-traumatic stress disorder) (Medical) F43.10 Sciatica (Medical) M54.30 TBI (traumatic brain injury) (Medical) S06.9X9A Family/Social History - Social History Living Situation: Occupational Work Experience [employer] [facility] Current or Hx of Recreational Drug use: Yes (MARIJUANA) Physical Exam General Appearance: Cooperative, Other (Answering all questions. Alert.) Head: Atraumatic Eyes: Conjunctiva normal Mouth/Throat: Mucosa moist Respiratory: No respiratory distress, Lungs clear, No accessory muscle use Cardiovascular: No Murmurs Abdominal: Non-tender Extremity/Musculoskeletal: No edema Skin: Diaphoretic Psych: Anxious Neuro: A&O X 3 Triage Vital Signs: Temperature 98.9 F 04/21/24 03:52 Temperature Source Oral 04/21/24 03:52 Pulse Rate 83 04/21/24 03:52 Respiratory Rate 18 04/21/24 03:52 Blood Pressure 154/86 H 04/21/24 03:52 Blood Pressure Source Automatic Cuff 04/21/24 03:52 Blood Pressure Mean 108 04/21/24 03:52 O2 Sat by Pulse Oximetry 99 04/21/24 03:52 Oxygen Delivery Method Nasal Cannula 04/21/24 03:52 Oxygen Flow Rate 3 04/21/24 03:52 Results/Orders - Results and Orders Result diagrams: 04/21/24 05:10 04/21/24 05:10 - Results and Orders Lab Testing & Results 04/21/24 05:10: WBC 9.1, RBC 4.24, Hgb 12.5, Hct 35.3, MCV 83.3, MCH 29.5, MCHC 35.4, RDW 13.6, Plt Count 214, Immature Gran % (Auto) 0.4, Neut % (Auto) 69.5, Lymph % (Auto) 17.7, [place] % (Auto) 11.0, Eos % (Auto) 1.0, Baso % (Auto) 0.4, Neut # (Auto) 6.3, Lymph # (Auto) 1.6, [place] # (Auto) 1.0 H, Eos # (Auto) 0.1, Baso # (Auto) 0.0, Immature Gran # (Auto) 0.04, Nucleated RBC % 0.0, Sodium 122 L, Potassium 3.1 L, Chloride 89 L, Carbon Dioxide 18 L, Anion Gap 15, BUN 17, Creatinine 1.1, Estimated Creat Clear Tank Erector, Estimated GFR 78 L, BUN/Creatinine Ratio 15.5, Glucose 106 H, Calcium 8.8, Total Bilirubin 1.0, AST 27, ALT 22, Alkaline Phosphatase 129, Troponin T High Sens 21 H, NT-Pro-B Natriuret Pep 79, Total Protein 7.2, Albumin 4.4, Albumin/Globulin Ratio 1.6 04/21/24 06:05: Ammonia 28 04/21/24 06:22: Add-On Test Request Added test 04/21/24 06:45: Urine Color Yellow, Urine Clarity Clear, Urine pH 7.0, Ur Specific [place] <= 1.005, Urine Protein Negative, Urine Glucose (UA) Negative, Urine Ketones Negative, Urine Blood Small A, Urine Nitrate Negative, Urine Bilirubin Negative, Urine Urobilinogen 0.2, Ur Leukocyte Esterase Negative, Urine WBC (Auto) Not Reportable, Urine RBC (Auto) Not Reportable, Urine Casts (Auto) Not Reportable, U Epithel Cells (Auto) Not Reportable, Urine Bacteria (Auto) Not Reportable, Urine RBC 0-2, Urine WBC None seen, Ur Squamous Epith Cells 0-5, Urine Bacteria None seen, Hyaline Casts None seen, Urine Opiates Screen Negative, Ur Buprenorphine Scrn Negative, Ur Oxycodone Screen Negative, Urine Methadone Screen Negative, Urine Fentanyl Screen Negative, Ur AmphetaminesScreen Positive H, U Benzodiazepines Scrn Negative, Urine Cocaine Screen Negative, U Cannabinoids Screen Negative, Influenza Type A Ag Negative, Influenza Type B Ag Negative, SARS-CoV-2 Ag (Rapid) Negative Medications Ordered: Discontinued Medications Lorazepam (Lorazepam 2 Mg/Ml Inj) 1 mg IV ONCE ONE; Protocol Stop: 04/21/24 06:24 Last Admin: 04/21/24 07:15 Dose: 1 mg Documented By: AE EKG Orders: EKG Orders 04/21/24 05:32 EKG ED Electrocardiogram Stat Radiology Orders: Radiology Orders 04/21/24 04:06 XR chest 1V portable Stat ED Provider Radiology Interpretation: Chest x-ray: No acute process ([facility]) MDM/COURSE Vital Signs Temperature 98.9 F 04/21/24 03:52 Pulse Rate 83 04/21/24 03:52 Respiratory Rate 18 04/21/24 03:52 Blood Pressure 154/86 H 04/21/24 03:52 O2 Sat by Pulse Oximetry 99 06/06/24 03:52 Oxygen Flow Rate 3 04/21/24 03:52 Temperature 98.7 F 04/21/24 10:01 Pulse Rate 93 H 04/21/24 10:01 Respiratory Rate 16 04/21/24 10:01 Blood Pressure 129/87 04/21/24 10:01 O2 Sat by Pulse Oximetry 99 04/21/24 10:01 Oxygen Flow Rate 2 04/21/24 06:46 - [facility] Medical decision making narrative: 04/21/24 10:13 59-year-old male presents emergency depart with diaphoresis as well as confusionafter he reports he took some crystal meth. Upon arrival to the emergency department much better after receiving Ativan. His blood work does show hyponatremia and he will require admission to the hospital for further electrolyte correction. He will be transferred to the [facility] ([facility]) Discharge Plan - Discharge Clinical Impression: Hyponatremia, Methamphetamine use Disposition: Xfer Acute Care Non-[place] Prescriptions: No Action acetaminophen 500 MG tablet 1,000 mg PO TID PRN (Reason: pain) amlodipine 5 MG tablet 10 mg PO DAILY bisacodyl [Laxative (bisacodyl)] 5 MG tablet 5 mg PO Q6H PRN (Reason: Constipation) capsaicin 60 APPL/60 GM cream 1 applic topical TID PRN (Reason: pain) chlorthalidone 25 MG tablet 25 mg PO DAILY@0600 RF: 0 cholecalciferol (vitamin D3) 25 MCG capsule 1,000 unit PO DAILY clonazepam 1 MG tablet 1 mg PO BID cyclobenzaprine 10 MG tablet 10 mg PO TID ibuprofen 600 MG tablet 600 mg PO Q6H PRN (Reason: pain) lorazepam 1 MG tablet 1 mg PO TID PRN (Reason: Anxiety) magnesium hydroxide 30 ML suspension 30 ml PO DAILY PRN (Reason: Constipation) multivitamin 1 EACH tablet 1 ea PO DAILY nicotine 1 PATCH patch 24 hour 21 mg transdermal DAILY risperidone 4 MG tablet 4 mg PO BID vitamin B complex [Vitamins B Complex] 1 EACH capsule 1 tab PO DAILY Referrals: Pcp-Gaurav,MD Leonarda [Primary Care Provider] - Print Language: Swedish - Transfer Info Did you call another [facility] or the 5000 line?: No Reason Patient Sent to Other Facility(Select All That Apply): Pt followed at non-[facility] facility Service: General Medicine Transfer Facility: [facility] - Discharge Data Time Seen by Provider: 04/21/24 06:10 Dictated By: Loc [facility] MD Signed By: Loc Z[facility] MD 04/21/24 1014 DD/ TD/TT: 04/21/24620 Elect Equip Maint Eng: LESLIE cc: JOSE Brower Pcp-MD Gaurav
[2024-07-06] MEDS: LORazepam 1 MG TABLET 2 MG PO (19:17)
[2024-07-06 19:36] LABS: MANUAL DIFF FLAG NO
[2024-07-06 19:38] LABS: Basophils Percent Auto 0.7 % (0-2); Eosinophils Absolute Auto 0.2 X10*3/uL (0.0-0.4); Eosinophils Percent Auto 3.5 % (0-4); Hematocrit 32.5 % (42.0-52.0); Hemoglobin 11.6 g/dl (14.0-18.0); Imm Gran Abs Auto 0.02 X10*3/uL (0.00-0.03); Imm Gran Pct Auto 0.3 % (0.0-0.4); Lymphocytes Absolute Auto 1.4 X10*3/uL (1.2-4.9); Mean Corpuscular HGB Conc 35.7 g/dl (31.0-36.0); Mean Corpuscular Hemoglobin 30.8 pg (27.0-33.0); Mean Corpuscular Volume 86.2 fL (80.0-98.0); Mean Platelet Volume 8.3 fL (9.4-12.4); Monocytes Absolute Auto 0.5 X10*3/uL (0.1-1.2); Monocytes Percent Auto 8.4 % (2-11); Neutrophils Absolute Auto 3.6 x10*3/uL (2.0-8.3); Neutrophils Percent Auto 63.1 % (45-73); Platelet Count 224 X10*3/uL (160-400); Red Blood Count 3.77 X10*6/uL (4.60-5.80); Red Cell Distribution Width 13.9 % (11.0-16.0); White Blood Count 5.7 X10*3/uL (4.8-10.8)
[2024-07-06 19:53] LABS: COVID-19 Test Negative (Negative); IDNOW Serial# 152EDE1D
[2024-07-06 19:54] LABS: Acetaminophen LAB < 3 mcg/mL (<30); Alanine Aminotransferase 16 U/L (0-40); Alkaline Phosphatase 121 U/L (39-117); Anion Gap 16 (12-20); Aspartate Amino Transferase 22 U/L (5-37); Bilirubin Total 0.4 mg/dL (0.0-1.0); Blood Urea Nitrogen 26 mg/dL (9-16); Calcium 9.5 mg/dL (8.4-10.2); Carbon Dioxide 22 mmol/L (22-29); Chloride 103 mmol/L (96-108); Creatinine Clr Calc Pharmacy 54.5; Estimated Glomerular Filt Rate 44; Ethanol < 10 mg/dL; Glucose Random 84 mg/dL (60-115); Potassium 3.5 mmol/L (3.3-5.1); Salicylate < 5.0 mg/dL (15-30); Sodium 137 mmol/L (135-145)
[2024-07-06 19:57] LABS: Amphetamine Screen Urine POSITIVE (Not Detect); Barbiturates, Urine Not Detected (Not Detect); Benzodiazepines Screen Urine Not Detected (Not Detect); Buprenorphine Scr Not Detected (Not Detect); Cannabinoid Screen Urine POSITIVE (Not Detect); Cocaine Screen Urine Not Detected (Not Detect); Fentanyl, urine Not Detected (Not Detect); Methadone Screen, Urine Not Detected (Not Detect); Opiate Screen Urine Not Detected (Not Detect); Oxycodone Screen Urine Not Detected (Not Detect); Phencyclidine Screen Urine Not Detected (Not Detect)
[2024-07-06 19:59] LABS: INTERNATIONAL NORM RATIO 0.9 (0.9-1.1); Prothrombin Time 11.3 SEC (11.1-13.3)
[2024-07-06 20:03] LABS: Troponin-I High Sensitivity 8.4 ng/L (<3.5-35.0)
[2024-07-07 00:38] LABS: Anion Gap 16 (12-20); Blood Urea Nitrogen 24 mg/dL (9-16); Calcium 8.9 mg/dL (8.4-10.2); Carbon Dioxide 18 mmol/L (22-29); Chloride 105 mmol/L (96-108); Creatinine Clr Calc Pharmacy 60.9; Estimated Glomerular Filt Rate 50; Glucose Random 129 mg/dL (60-115); Potassium 3.1 mmol/L (3.3-5.1); Sodium 136 mmol/L (135-145)
[2024-07-07 04:25] VITALS: BP 143/90; PULSE 74; RESP 18; TEMP 36.6; O2SAT 99
--- NOTE | 2024-07-07 05:56 | PC.NURSE ---
Patient slept through the night, no distress observed/reported, appetite great, disposition per care team is section 12 inpatient bed search, no behavior and safety concerns, patient expresses needs well, fluid intake encouraged per provider's order/patient compliant, will continue to monitor
[2024-07-07] MEDS: Dextroamphetamine/Amphetamine XR 10 MG CAP.ER.24H 30 MG PO ×2 (06:15→08:37)
[2024-07-07 08:40] VITALS: BP 156/92; PULSE 79; RESP 20; TEMP 37; O2SAT 97
--- NOTE | 2024-07-07 08:49 | PC.NURSE ---
patient is awake and alert this morning, ambulates around unit with limp- steady gait. patient medicated per JAN, requested ativan for anxiety, this RN reached out to attending for prn order. patient took shower this morning, has been calm and cooperative, talkative with staff and other peers. skin dry and intact, respirations equal and unlabored.
[2024-07-07] MEDS: LORazepam 1 MG TABLET PO ×2 (09:03→20:29)
[2024-07-07 10:34] LABS: Anion Gap 11 (12-20); Blood Urea Nitrogen 23 mg/dL (9-16); Calcium 8.9 mg/dL (8.4-10.2); Carbon Dioxide 23 mmol/L (22-29); Chloride 106 mmol/L (96-108); Creatinine Clr Calc Pharmacy 92.4; Estimated Glomerular Filt Rate > 60; Glucose Random 128 mg/dL (60-115); Potassium 3.4 mmol/L (3.3-5.1); Sodium 137 mmol/L (135-145)
--- NOTE | 2024-07-07 12:46 | MHC.EDTECH ---
Attempted to obtain lab work, patient asked for the needle to be removed and the patient grabbed the needle and pulled it out of his arm and held it. unable to obtain lab work at this time.
[2024-07-07 12:47] LABS: Troponin-I High Sensitivity 5.4 ng/L (<3.5-35.0)
--- NOTE | 2024-07-07 13:13 | PC.NURSE ---
niurka made aware of patient refusing labs
[2024-07-07] MEDS: Nicotine 21 MG PATCH.TD24 TRANSDERMA (14:32)
[2024-07-07] MEDS: LORazepam 1 MG TABLET 2 MG PO (14:32)
--- NOTE | 2024-07-07 14:38 | PC.NURSE ---
patient requested prn ativan and nicotine patch, provider ordered. medicated per MAR
--- NOTE | 2024-07-07 19:02 | PC.NURSE ---
patient appears at rest presently ambulated to rest room and asked for chung ales. cooperative and pleasant.
[2024-07-08 05:18] VITALS: BP 160/91; PULSE 73; RESP 17; TEMP 36.9; O2SAT 99
[2024-07-08] MEDS: Dextroamphetamine/Amphetamine XR 10 MG CAP.ER.24H 30 MG PO ×2 (05:33→08:45)
--- NOTE | 2024-07-08 08:07 | PC.NURSE ---
Resumed care of patient at 0700, he has been ambulating around unit this AM, showered, pt came to nursing station requesting new nicotine patch, aware ordered place.
[2024-07-08] MEDS: Nicotine 21 MG PATCH.TD24 TRANSDERMA (08:44)
--- NOTE | 2024-07-08 11:14 | MHC.CARE ---
[facility] has declined the patient due to refusal of labs. [facility] has no beds available today and [facility] declined to review as patient does not have all of the required medical complete.
[2024-07-08 14:35] VITALS: BP 0/0; PULSE 0; RESP 0; TEMP -17.7; TEMP 0; O2SAT 0
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
== END 2024-07-08 14:36 | disposition home or self-care (01) ==
PROVIDERS: Emergency Medicine; Physician Assistant; Emergency Provider Emergency Medicine
DX: F20.0 Paranoid schizophrenia (principal); N17.9 Acute kidney failure, unspecified; F90.9 Attention-deficit hyperactivity disorder, unspecified type; Z79.899 Other long term (current) drug therapy
CPT/HCPCS: 36415; 80048; 80053; 80143; 80179; 80307; 84484; 85025; 85610; 87635; 93005; 99285; S9485

== ENCOUNTER → 2024-07-06 17:55 | Outpatient (BNV) | payer OTHER, SELFPAY | PROVIDERS: Emergency Provider Emergency Medicine; Visit Provider Social Worker | DX: F20.0 Paranoid schizophrenia (principal) | CPT/HCPCS: 99499 ==